=== PATIENT | female | born 1945 | race Caucasian/White ===

== ENCOUNTER 2024-09-23 09:56 | Outpatient (AMB) | payer MEDICARE, SELFPAY ==
--- NOTE | 2024-09-23 09:58 | MHC.PC.OV ---
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, needs referrals for eye treatment Intake Note: New patient to establish care and patient also need referrals for eye treatment Tax Map Technician Required: No Allergies No Known Allergies Allergy (Verified 09/23/24 10:27) Medication List - Last Reconciled 09/23/24 by Carrie Jordan, [facility]- amitriptyline 10 mg PO amoxicillin 2,000 mg PO aspirin (Adult Low Dose Aspirin) 81 mg PO DAILY atorvastatin 10 mg PO DAILY buspirone 20 mg PO BID famotidine 40 mg PO DAILY fluoxetine 20 mg PO fluticasone propionate 50 mcg/actuation 1 spray intranasal DAILY furosemide 40 mg PO DAILY omeprazole 40 mg PO DAILY potassium chloride ER mEq PO DAILY topiramate 50 mg PO DAILY trazodone 100 mg PO Tobacco use date assessed: 09/23/24 Fall risk assessment: No Falls in past year Last assessed Fall Risk: 09/23/24 Dental Screening Dental Screen Date: 09/23/24 Did you have a dental visit in the last 12 months?: Yes Did you have a dental problem in the last 6 months where you did not have access to dental care?: No Was dental information given to patient?: Patient has dentist HPI HPI Comments History of Present Illness Details 78 y/o F with GERD, CHF with seconday hyperaldosteronism, ELANA, macular degeneration, rheumatic fever, MDD, history of suicide attempt w/ tranquilizer drug overdose 2012,, DM 2, Iron def anemia, FALSE PASS, mitral valve disease SurgHx: s/p TAVR 2022 FHx: 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 Colon: Mammo: ordered today DEXA : ordered today PAP Vaccines: Shingles, pneumococcal, RSV, Flu UTD Tdap 2015 AAA screen EKG: [place] of Care: Optho cards bhn counselor and med prescriber Saw Setter Visual Acuity: glasses Hearing Screening: hearing aides ACP: Dietary/Nutrition/Exercise Edu provided: Y Results: EKG 10/15/23 NSR with PAC Echo 08/24/22 LV mild dilation, EF 50%, severe L atrium dilation, bioprosthetic valve in aortic position, trace perivalvular leak, severe mitral annular calcification, MV severely thickened and calcified, severe MVR During the course of the visit the patient was educated and counseled about appropriate screening and preventative services. Patient instructions were provided to the patient in written or electronic format. I have reviewed and verified the above information. History of Present Illness - The patient is a 78-year-old female presenting to [facility] care Previous PCP [place], [facility] records avail to review after the visit macular degeneration, managed by injections, needs updated referral - CHF, s/p TAVR, Mitral valve disorder: Active w/ cards Dr Chavez , needs updated referral - Hearing impairment due to old hearing aids. Difficulty in understanding accents compounding the issue. Needs Audio referral - unsteady gait potentially linked to sinus issues or medication side effects. Temporary relief experienced for 2 weeks, with return of sx. Saw ENT in the past and did Vestibular therapy, no relief. Has not done PT. - Episodes of unexplained low blood sugar with tremors. Past weight reduction attributed to significant lifestyle changes. reports dm2, checks glucose at home can be 70's at time. on no DM meds. - Psychiatric concerns involve self-reported depression and anxiety, refuting prior bipolar diagnosis. Hx of suicide attempt, Self tapering meds to see if this helps her sensation of walking like a drunken can pusher . Reports that her prescriber is aware. I advised strongly against this. 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 - Movement is assisted by a walking stick for exercise. - Actively engages in walking approximately four miles weekly. - Significantly reduced weight from 350 pounds to 132 pounds. - Experiences seasonal affective disorder, leading to overeating in winter. Review of Systems - General: Denies recent fever. - Eyes: Reports ongoing management for macular degeneration, both eyes affected. - Cardiovascular: Reports heart murmur and previous transcatheter aortic valve replacement. - Ears: Reports longstanding hearing impairment, worsened with age and inadequate hearing aids. - Neurologic: Reports unsteady gait, occasional tremors due to low blood sugar. - Psychiatric: Reports previous diagnosis of bipolar disorder, currently self-identified as dealing with depression and anxiety without bipolar characteristics. Exam Awake alert NAD Wearing glasses TM intact and clear bilat, hearing aides in place RRR, 3/6 murmur LS CTAB No edema BLE + PP Animated, mood expansive Discussion Notes In today's visit, I discussed multiple referrals for the patient's health maintenance needs including an technology sales specialist for her macular degeneration and audiology referral. The management of her cardiac concerns will continue with Dr. Guallpa. Future appointments for mammogram and bone density assessments were discussed, as well as physical therapy options for her gait issues, attributed to potential inner ear or medication-related reasons. Education on the importance of regular blood sugar monitoring due to episodes of hypoglycemia and discussion of mental health concerns centered on her self-reported depression and anxiety, dismissing a diagnosis of bipolar disorder. The patient was advised to continue her active lifestyle to help mitigate seasonal affective disorder. Assessment and Plan 1. Age-related Macular Degeneration: Continuing with injection treatments 2. Heart Murmur and Valve Replacement: Sustained follow-up with study specialist Dr. Guallpa. Attention to future intervention as discussed. 3. Hearing Loss: Addressing with an audiology referral for updated hearing evaluation and aid consideration. 4. Unsteady Gait: Suggested physical therapy to improve balance and address potential sinus and medication contributions. 5. Diabetes Mellitus: Blood glucose monitoring with laboratory evaluations scheduled for further diabetes screening. 6. Bipolar Disorder (self-reported clinical depression and anxiety): Psychiatric treatment continued with advisement against self-alteration of medication regimen. Patient Instructions - Ensure attendance to referred industrial gas fitter helper and computing architect appointments. - Monitor blood sugar levels continuously and report abnormal findings. - Engage regularly in physical activities like walking and attempt structured balance exercises. - Complete scheduled mammogram and bone density scan. - Follow up in two weeks for laboratory test review and ongoing treatment plans. Consent Patient was informed and verbally consented to the use of an ambient scribe for clinic note documentation during this visit. Total time spent caring for the patient today was 61 minutes. This includes time spent before the visit reviewing the chart, time spent during the visit, and time spent after the visit on documentation, reviewing laboratory results, diagnostic imaging, medications, performing a medically necessary evaluation, counseling on diagnoses, care coordination, ordering appropriate tests, ordering appropriate medications, review of tests performed by other providers, reporting test results with the patient, communication with other healthcare providers. [facility] Medical History (Updated 09/23/24 @ 16:04 by [facility] Anxiety and depression Arthritis Diabetes GERD (gastroesophageal reflux disease) Heart disease Heart valve problem History of mammogram History of transcatheter aortic valve implantation ([facility]I) IBS (irritable bowel syndrome) Imbalance Sinusitis Surgical History (Updated 09/23/24 @ 16:02 by [facility]) H/O gastric bypass History of colonoscopy Hx of cholecystectomy Family History (Updated 09/23/24 @ 10:28 by Ar Anne MA) Mother Asthma HTN (hypertension) Mental health disorder Sister Asthma HTN (hypertension) Mental health disorder Father HTN (hypertension) Social History (Updated 09/23/24 @ 10:12 by Ar Anne MA) Household Members: None Both parents involved: No Caregiver staying overnight: No Housing: House Are you a primary career services director to a significant other at home: No Do you presently have visiting nurse or other home services: No 75 years or older and lives alone: No Alcohol intake: never Patient Tobacco Use Status: Never used Tobacco e-Cigarette/Vaping Use: Never Used Second Hand Smoke Exposure: Yes Current occupational status: retired Cognitive needs: No Hearing needs: Yes (hearing aid) Vision needs: Yes (wear glasses) Questionnaire PHQ-9 Over the last 2 weeks, how often have you been bothered by any of the following problems? 1. Little interest or pleasure in doing things: several days 2. Feeling down, depressed, or hopeless: several days 3. Trouble falling or staying asleep, or sleeping too much: not at all 4. Feeling tired or having little energy: not at all 5. Poor appetite or overeating: nearly every day 6. Feeling bad about yourself - or that you are a failure or have let yourself or your family down: several days 7. Trouble concentrating on things, such as reading the newspaper or watching television: several days 8. Moving or speaking so slowly that other people could have noticed. Or the opposite - being so fidgety or restless that you have been moving around a lot more than usual: not at all 9. Thoughts that you would be better off or of hurting yourself in some way: not at all Total score: 7 Depression Screening Interpretation: Positive Depression Screening Follow-up: Existing condition and In treatment Depression Screening Done: Yes 26601 - PHQ-9 Billing: Yes Source: Developed by Drs. Janes Nation, Regis Darnell and colleagues, with an educational darrell from [employer]. Thrive Questionnaire Date Thrive assessed: 09/23/24 I am a: Patient What is your living situation today?: I have a steady place to live Within the past 12 months, did the food you bought not last and you didn't have the money to get more?: Never true Within the past 12 months, did you worry whether your food would run out before you got money to buy more?: Never true Do you have trouble paying for medicines?: No Do you have trouble getting transportation to medical appointments?: No Do you have trouble paying your heating and electricity bill?: No Do you have trouble taking care of your child, family member or friend?: No Do you have trouble with day-to-day activities such as bathing, preparing meals, shopping, managing finances, etc.?: No Are you currently unemployed and looking for a job?: No Are you interested in more education?: Yes Please select the resources that you would like help with: Housing/Chcf and Transportation Currently or been in a relationship where the following occur: No concerns reported THRIVE Score: 0 AUDIT C Alcohol Use Questionnaire (AUDIT-C) 1. How often do you have a drink containing alcohol?: Never 3. How often do you have six or more drinks on one occasion?: Never Total Score: 0 Score Reviewed/Action Taken: Yes ELANA-7 AMB Questionnaire ELANA-7 Date ELANA - 7 assessed: 09/23/24 Feeling nervous, anxious, or on edge: 1 = Several days Not being able to stop or control worryin = Several days Worrying too much about different things: 1 = Several days Trouble relaxin = Not at all Being so restless that it is hard to sit still: 0 = Not at all Becoming easily annoyed or irritable: 0 = Not at all Feeling afraid as if something awful might happen: 0 = Not at all Total ELANA-7 score (0-4 normal; 5-9 mild; 10-14 moderate; 15-21 severe): 3 Source: Developed by Debi Medeiros Kurt Kroenke and colleagues, with an educational darrell from [employer]. ELANA-7 Assessment Billing ELANA-7 Assessment Tool: ELANA-7 Assessment 47085 Physical exam (Primary Care) Vital Signs: Last Vital Signs Temp 97.1 F 09/23/24 10:12 Pulse 72 09/23/24 10:12 Resp 12 09/23/24 10:12 BP 122/72 09/23/24 10:12 Pulse Ox 99 09/23/24 10:12 Oxygen Delivery Method Room Air 09/23/24 10:12 BMI result Body Mass Index 25.8 Tobacco/Smoking Status: Tobacco use Status Tobacco use date assessed 09/23/24 09/23/24 10:14 Patient Tobacco Use Status Never used Tobacco 09/23/24 10:14 e-Cigarette/Vaping Use Never Used 09/23/24 10:14 PHQ-9: PHQ-9 Score PHQ-9: Total score 7 09/23/24 11:03 Depression Screening Interpretation: Positive Depression Screening Follow-up: Existing condition and In treatment Thrive Assessment: Date of Thrive Assessment Date Thrive assessed 09/23/24 09/23/24 10:03 Currently or been in a relationship where the following occur: No concerns reported Coding Level of Care Code New Pt Level 5 (15845) Complex EM visit Add On G2211 Diagnoses Encounter to establish care Z76.89 Macular degeneration of both eyes, unspecified type H35.30 Eye laterality: bilateral Macular degeneration type: unspecified type Status post transcatheter aortic valve replacement Z95.2 Hard of hearing H91.90 Unsteady gait R26.81 Risk for falls Z91.81 Chronic combined systolic and diastolic congestive heart failure I50.42 Heart failure type: combined systolic and diastolic Heart failure chronicity: chronic ELANA (generalized anxiety disorder) F41.1 Moderate episode of recurrent major depressive disorder F33.1 Major depression recurrence: recurrent Active/Remission status: currently active Major depression episode severity: moderate 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 History of suicide attempt Z91.51 History of rheumatic fever Z86.79 DM2 (diabetes mellitus, type 2) E11.9 Diabetes mellitus terminal worker insulin use: without terminal worker use Mitral valve disease I05.9 Additional Codes ELANA-7 Assessment Billing - ELANA-7 Assessment Tool: ELANA-7 Assessment 53237 ([id number]) PHQ-9 - 94382 - PHQ-9 Billing: Yes ([id number]) Assessment & Plan Assessment & Plan (1) Encounter to establish care: Code(s): Z76.89 - Persons encountering health services in other specified circumstances Category: Medical (2) Macular degeneration: Code(s): H35.30 - Unspecified macular degeneration Qualifiers: Eye laterality: bilateral Macular degeneration type: unspecified type Qualified Code(s): H35.30 - Unspecified macular degeneration (3) Status post transcatheter aortic valve replacement: Code(s): Z95.2 - Presence of prosthetic heart valve Plan: 2022 (4) Hard of hearing: Code(s): H91.90 - Unspecified hearing loss, unspecified ear (5) Unsteady gait: Code(s): R26.81 - Unsteadiness on feet Category: Medical (6) Risk for falls: Code(s): Z91.81 - History of falling Category: Medical (7) CHF (congestive heart failure): Comment: ef 50% echo 2022 with secondary hyperaldosteronism on lasix Code(s): I50.9 - Heart failure, unspecified Category: Medical Qualifiers: Heart failure type: combined systolic and diastolic Heart failure chronicity: chronic Qualified Code(s): I50.42 - Chronic combined systolic (congestive) and diastolic (congestive) heart failure (8) ELANA (generalized anxiety disorder): Code(s): F41.1 - Generalized anxiety disorder Category: Medical (9) MDD (major depressive disorder): Code(s): F32.9 - Major depressive disorder, single episode, unspecified Category: Medical Qualifiers: Major depression recurrence: recurrent Active/Remission status: currently active Major depression episode severity: moderate Qualified Code(s): F33.1 - Major depressive disorder, recurrent, moderate (10) Secondary hyperaldosteronism: Comment: d/t CHF on lasix Code(s): E26.1 - Secondary hyperaldosteronism Category: Medical (11) History of suicide attempt: Onset Date: ~08/2012 Comment: on tranquilizers Code(s): Z91.51 - Personal history of suicidal behavior Category: Medical (12) History of rheumatic fever: Code(s): Z86.79 - Personal history of other diseases of the circulatory system Category: Medical (13) DM2 (diabetes mellitus, type 2): Code(s): E11.9 - Type 2 diabetes mellitus without complications Category: Medical Qualifiers: Diabetes mellitus shelter insulin use: without terminal worker use (14) Mitral valve disease: Code(s): I05.9 - Rheumatic mitral valve disease, unspecified Category: Medical Plan . Orders: Orders MM tomosynthesis screening BI Today Z12.31 - Encounter for screening mammogram for malignant neoplasm of breast Complete Blood Count no Diff Today Z00.00 - Encounter for general adult medical examination without abnormal findings Lipid Panel Today Z00.00 - Encounter for general adult medical examination without abnormal findings Vitamin B12 and Folate Today Z00.00 - Encounter for general adult medical examination without abnormal findings Vitamin D 25-OH Total Today Z00.00 - Encounter for general adult medical examination without abnormal findings PT Evaluation and Treatment Today R26.81 - Unsteadiness on feet, Z91.81 - History of falling XR DEXA axial skeleton Today Z13.820 - Encounter for screening for osteoporosis, Z78.0 - Asymptomatic menopausal state Comprehensive Met. Panel Today Z00.00 - Encounter for general adult medical examination without abnormal findings Microalbumin, Random (w Creat) Today Z00.00 - Encounter for general adult medical examination without abnormal findings TSH reflex Free T4 Today Z00.00 - Encounter for general adult medical examination without abnormal findings Hemoglobin A1c Today Z00.00 - Encounter for general adult medical examination without abnormal findings Referrals Cardiology Referral Z95.2 - Presence of prosthetic heart valve Audiology Referral H91.90 - Unspecified hearing loss, unspecified ear Ophthalmology Referral H35.30 - Unspecified macular degeneration Patient Instructions: Walk-In Care (Urgent Care): We Make it Easy Walk-in for urgent medical issues such as: ? Seasonal Allergies ? Insect Bites ? Cough ? Diarrhea ? Acute Asthma Attacks ? Back, Knee or Joint Pain ? Ear Infection ? Fever without a Rash ? Headaches ? Nausea ? [place] [facility], Rash or Skin Irritation ? Sore Throat ? Sports Physicals ? Vomiting Most insurances are accepted. Patients do not need to be part of the [facility] to seek care at the walk-in clinic. Locations [facility] [place] [address] [address] ? [phone] [facility] Walk-In Care in [place] provides services to ages 18 and over. Open Saturday-Saturday: 8 a.m. to 5 p.m. and Saturday: 9 a.m. to 3 p.m.* *Hours may vary due to staffing availability. To confirm Walk-In Care hours in [place], please call [phone]. [address] [place] [address] ? [phone] [facility] Walk-In Care in [place] provides services to ages 12 and over. Open Saturday-Saturday: 8 a.m. to 5 p.m. Hours may vary due to staffing availability. To confirm Walk-In Care hours in [place], please call [phone]. LABORATORY SERVICES: [facility] [place] Primary Location [address] [place] [address] Saturday through Saturday 6:00 AM ? 5:00 PM Saturday 7:00 AM ? 11:00 AM* [phone] The [facility] is centrally located near the front entrance of the [facility] for easy outpatient access. Convenient parking is provided for outpatients. *Hours may vary due to staffing availability. To confirm Laboratory hours for any location, please call [phone]. Offsite Location For your convenience, we offer offsite laboratory draw stations at the following locations: [address] [place] [address] ? [address], [address] Saturday through Saturday 7:30 AM ? 1:00 PM* [phone] *Hours may vary due to staffing availability. To confirm Laboratory hours for any location, please call [phone]. [place] ? [address] Saturday through Saturday 6:00 AM ? 3:30 PM* Saturday 6:30 AM ? 3 PM* [phone] *Hours may vary due to staffing availability. To confirm Laboratory hours for any location, please call [phone] [place] [address] Saturday through Saturday 7:30 AM ? 4:00 PM* [phone] *Hours may vary due to staffing availability. To confirm Laboratory hours for any location, please call [phone] [place] [address] Saturday through 9:00 AM ? 4:00 PM* *Hours may vary due to staffing availability. To confirm Laboratory hours for any location, please call [phone]. Appointments are not necessary. Walk-ins are welcome. Like all the departments throughout the [facility], our Lab undergoes frequent reviews to ensure the quality and accuracy of test results, and our staff takes special pride in its status as a nationally accredited facility. Patient Portal: ONE PATIENT. ONE RECORD. BETTER CARE. [facility] has a fully integrated, cutting-edge mobile electronic health information system that has revolutionized the way we care for our patients and manage our organization. This system improves communication and coordination enabling us to provide safe, higher-quality care, and an overall positive experience for staff and patients. Our first priority, as always, is to deliver the highest quality care possible. The system is running in the background supporting that priority. This portal is for all [facility] and [facility] services and practices. If you are experiencing any technical difficulties with enrolling or logging into the Patient Portal please complete the [facility] [place] Portal Technical Support Form. [facility] now offers a new secure on-line interactive tool for patients to review their health information ? ?Patient Portal. This interactive web portal will enable patients and their families to take an active role in their care by providing easy, secure access to their health information via the internet. The Patient Portal provides patients with instant access to their health information, including laboratory results, medications, allergies, demographic information, visit history, and more. In addition to managing their own care, parents and health care proxies with authorized consent will appreciate the ability to access the records of those individuals for whom they provide care. Please note: if you wish to gain access (Proxy) to another patient?s portal, you will be required to come to the Medical Records Department in person at [facility]. Both the patient giving proxy access and the proxy will need to provide photo identification and complete the appropriate authorization. The Patient Portal also allows track their appointments online. The [facility] Patient Portal also saves patients time by allowing them to submit updates to their demographic and contact information prior to their visits. Portal email notifications will also alert patients to any new activity on their portal, such as test results and new appointments. In order to initially enroll in the [facility] Patient Portal, you will need to enter some required information including the following: your [facility] Medical Record number your personal home email address name date of Please note: In order to enroll in the [facility] Patient Portal, we need to have your email address on file in your electronic medical record. ?The email address needs to be specific for one person (yourself) in order for your Portal enrollment to be successful. ?You can update your email address in person with our Registration staff when you are registering for a hospital visit. ?Otherwise, you will need to come to the Health Information Management (Medical Records) Department at [facility]. ?We are open from Saturday ? Saturday from 7:30 a.m. ? 4:30 p.m. ?You will be required to present a photo id. Once you have successfully enrolled in the Patient Portal, you will receive a one-time user id and password for the Portal, sent to your email address. ?This will allow you to log into the Patient Portal within 99 hrs and reset your own logon id and password, and define personal security questions. ?Once your permanent login and password have been set, you can log into the [facility] [place] Portal at any time via the blue button above or from the Portal Logon button on any page of the [facility] website. [facility] and [facility] encourage all of our patients to enroll in Patient Portal as it presents a valuable opportunity for patients and their families to actively participate in their care and stay healthy Welcome to [facility]. ?We look forward to working with you.
[2024-09-23 10:12] VITALS: BP 122/72; PULSE 72; RESP 12; TEMP 36.2; O2SAT 99; BMI 25.8
--- OUTSIDE RECORDS SUMMARY | 2024-09-23 11:13 | XMS_ITS | Encounter Summary ---
Author Organization [employer] Address [address] [facility] [address] [place] [address] Care Team Providers Care Tin Cutter Name Role Phone Unavailable Primary Care Provider Unavailabl e Encounter Details Date Type Department Care Team (Latest Contact Info) Description 09/25/2018 Abstract [facility] CONVERSIONS Dental, Provider, DDS Social History Tobacco Use Types Packs/Day Years Used Date Smoking Tobacco: Never Assessed Comments Unknown Sex and Gender Information Value Date Recorded Sex Assigned at Choose not to disclose 2:10 PM EST Legal Sex Female 5:35 PM EDT Gender Identity Choose not to disclose 2:10 PM EST Sexual Orientation Choose not to disclose 2022 2:10 PM EST documented as of this encounter Plan of Treatment Not on file documented as of this encounter Visit Diagnoses Not on filedocumented in this encounter
--- OUTSIDE RECORDS SUMMARY | 2024-09-23 11:13 | XMS_ITS | Clinical Summary ---
Author Organization [employer] Address [address] [facility] [address] [place] [address] Care Team Providers Care Sole Stitcher Hand Name Role Phone Unavailable Primary Care Provider Unavailabl e Allergies Active Allergy Reactions Criticality Noted Date Comments Pollen Extract 10/05/2008 Medications amoxicillin (Amoxil) 500 MG tablet PLEASE SEE ATTACHED FOR DETAILED DIRECTIONS 3 Active atorvastatin (Lipitor) 10 MG tablet Take 1 tablet by mouth in the morning. 3 Active aspirin 81 MG EC tablet Take 1 tablet by mouth in the morning. 3 Active buPROPion SR (Wellbutrin SR) 100 MG 12 hr tablet Take 100 mg by mouth in the morning. 3 Active cetirizine (ZyrTEC) 10 MG tablet Take 1 tablet by mouth in the morning. Active clopidogrel (Plavix) 75 MG tablet Take 75 mg by mouth in the morning. 3 Active famotidine (Pepcid) 40 MG tablet Take 40 mg by mouth in the morning. 3 Active FLUoxetine (PROzac) 20 MG capsule Take 60 mg by mouth in the morning. 3 Active furosemide (Lasix) 40 MG tablet Take 40 mg by mouth in the morning. 3 Active potassium chloride CR (Klor-Con) 10 MEQ ER tablet Take 10 mEq by mouth in the morning. 3 Active topiramate 50 MG tablet Take 1 tablet by mouth in the morning. 1 Active traZODone (Desyrel) 100 MG tablet TAKE 3 TABLETS BY MOUTH EVERY DAY AT BEDTIME 3 Active Social History Tobacco Use Types Packs/Day Years Used Date Smoking Tobacco: Never Passive Smoke Exposure: Never Smokeless Tobacco: Never Tobacco Cessation:Counseling Given: Not Answered Alcohol Use Standard Drinks/Week Comments Never 0 (1 standard drink = 0.6 oz pur e alcohol) Comments Unknown Sex and Gender Information Value Date Recorded Sex Assigned at Choose not to disclose 2:10 PM EST Legal Sex Female 5:35 PM EDT Gender Identity Choose not to disclose 2:10 PM EST Sexual Orientation Choose not to disclose 2022 2:10 PM EST Plan of Treatment Health Maintenance Due Date Last Done Comments Depression Screening 1946 Lipid Panel 1946 SDOH Screening 1946 Alcohol/Substance Use Screening 1958 Hepatitis C Screening 1964 RSV Patients and Patients Aged 60 years or older (1 - 1-dose 75+ series) 2021 COVID-19 Vaccine (2023- season) 2024 04/23/2023, 04/19/2023, 04/17/2022, Additional history exists Influenza Vaccine (#1) 2024 3, 04/19/2023, 04/17/2022, Additional history exists Dental X-Ray: Bitewings 05/25/2024 05/24/20 23, 12/21/2021, 12/07/2020, Additional history exists Dental Oral Exam 06/21/2024 12/20/2023, 04/2023, 12/21/2021, Additional history exists Dental Prophylaxis 06/21/2024 12/20/2023, 1 07/24/2022, 12/21/2021, Additional history exists Tobacco Screening 12/19/2024 12/20/2023 Dental X-Ray: Full Mouth 05/25/2026 023, 08/08/2016, 10/11/2008 DTaP/Tdap/Td Vaccines (3 - Td or Tdap) 02/07/2030 02/08/2020, 05/25/2016 Zoster Vaccines Completed 02/15/2023, 11/13, 09/08/2012 Pneumococcal Vaccine: 50+ Years Completed 07/19/2023, 03/27/2017, 10/22/2014 HIB Vaccines Aged Out No longer eligi ble based on patient's age to complete this topic HPV Vaccines Aged Out No longer eligi ble based on patient's age to complete this topic Hepatitis A Vaccines Aged Out No long er eligible based on patient's age to complete this topic Hepatitis B Vaccines Aged Out No long er eligible based on patient's age to complete this topic IPV Vaccines Aged Out No longer eligi ble based on patient's age to complete this topic Meningococcal Vaccine Aged Out No [place] cir[place] eligible based on patient's age to complete this topic RSV under 20 months Aged Out No longe r eligible based on patient's age to complete this topic Rotavirus Vaccines Aged Out No longer eligible based on patient's age to complete this topic Procedures Procedure Name Priority Date/Time Associated Diagnosis Comments Full PROPHYLAXIS - ADULT Routine 024 12:00 PM EDT PERIODIC ORAL EVALUATION - ESTABLISHED PATIENT Routine 12/20/2023 12:00 PM EDT INTRAORAL - COMPLETE SERIES OF RADIOGRAPHIC IMAGES Routine 05/24/2023 9:30 AM EST from Last 3 Months or Most Recently Relevant to Health Maintenance Insurance DENTAL - HSN FULL (MEDICAID)
--- OUTSIDE RECORDS SUMMARY | 2024-09-23 11:13 | XMS_ITS | Encounter Summary ---
Author Organization [employer] Address [address] [place] [address] Care Team Providers Care Impregnation Operator Name Role Phone Justin Epstein MD Primary Care Provider [phone] Reason for Visit * Reason Onset Date Comments Referral 08/17/2024 Fax requesting i nsurance referral - ophthalmology Encounter Details Date Type Department Care Team (Late st Contact Info) Description 08/17/2024 Telephone Internal Medicine - [place] [address] [facility] [address] [place] [id number] Justin pEstein MD [address] [facility] [address] [place], [place] [id number] Referral (Fax requesting insurance referral - ophthalmology) Social History Tobacco Use Types Packs/Day Years Used Date Smoking Tobacco: Never Smokeless Tobacco: Never Alcohol Use Standard Drinks/Week Comments No 0 (1 standard drink = 0.6 oz pur e alcohol) Comments Unknown Sex and Gender Information Value Date Recorded Sex Assigned at Female 06/04/2024 3:01 PM EST Legal Sex Female 10:01 AM EST Gender Identity Female 06/04/2024 3:01 PM EST Sexual Orientation Not on file documented as of this encounter Progress Notes * Marry Mcrae - 08/17/2024 4:02 PM EST Fax rec'd requesting an ins referral Caller: Fax Office: [facility] Specialty: ophthalmology Insurance: [employer] ID: [id number] Provider: Jessika Ng DOS: 07/30/24 Visits: 6 Dx code: H35.3231 x [phone] Pls create an order with the above information so that I may process it through the pts insurance. Thank you IMPORTANT Pls copy and paste the above info into the order. Otherwise, it will not be processed as an ins referral documented in this encounter Plan of Treatment Not on file documented as of this encounter Visit Diagnoses Not on filedocumented in this encounter Care Teams Impregnation Operator Relationship Specialty Start Date End Date Justin Epstein MD [address] [place] [address] PCP - General 03/13/24 documented as of this encounter
--- OUTSIDE RECORDS SUMMARY | 2024-09-23 11:13 | XMS_ITS | Clinical Summary ---
Author Organization [address] [facility] Address [address] [place] [address] Phone Care Team Providers Care Investor Relations Coordinator Name Role Phone Justin Epstein MD Primary Care Provider [phone] Allergies Active Allergy Reactions Criticality Noted Date Comments Other 05/27/2024 Seasonal allergies Pollen Extracts 10/05/2008 Medications acetaminophen (TYLENOL) 325 mg tablet Take 2 tablets (650 mg total) by mouth every 6 (six) hours if needed. Active amoxicillin (AMOXIL) 500 mg tablet Take 4 tablets 1 hour prior to dental procedure 01/17/20 24 Active busPIRone (BUSPAR) 10 mg tablet Take 2 tablets (20 mg total) by mouth 1 (one) time each day. Active FLUoxetine (PROzac) 20 mg capsule Take 4 capsules (80 mg total) by mouth 1 (one) time each day. Active furosemide (LASIX) 40 mg tablet Take 1 tablet (40 mg total) by mouth 1 (one) time each day. 10/22/19 24 Active potassium chloride (KLOR-CON) 10 mEq CR tablet Take 1 tablet (10 mEq total) by mouth 1 (one) time each day. 01/22/20 24 Active topiramate (TOPAMAX) 50 mg tablet Take 1 tablet (50 mg total) by mouth 1 (one) time each day. 03/01/20 21 Active traZODone (DESYREL) 100 mg tablet Take 3 tablets (300 mg total) by mouth at bedtime. Active MULTIVITAMIN ORAL Take by mouth. Active famotidine (PEPCID) 40 mg tablet TAKE 1 TABLET BY MOUTH EVERY DAY 90 tablet 3 06/05/20 24 Active atorvastatin (LIPITOR) 10 mg tabletIndicatio ns:Hyperlipidem ia, unspecified TAKE 1 TABLET BY MOUTH EVERY DAY 90 tablet 1 06/05/20 24 Active celecoxib (CeleBREX) 200 mg capsule TAKE 1 CAPSULE (200 MG TOTAL) BY MOUTH 1 (ONE) TIME EACH DAY IF NEEDED FOR MODERATE PAIN. 30 capsule 2 08/26/19 25 Active celecoxib (CeleBREX) 200 mg capsule Take 1 capsule (200 mg total) by mouth 1 (one) time each day if needed for moderate pain. 30 each 2 06/04/20 24 025 Discontinued Active Problems Problem Noted Date Diagnosed Date Bipolar 1 disorder, depressed, mild 05/27/2024 S/P TAVR (transcatheter aortic valve replacement ) 08/28/2022 Overview (05/26/2024): [place] [facility] [place] with KM - Indications: Leukocytosis 05/11/2022 Metabolic acidosis, normal anion gap (NAG) 05/11 Pulmonary edema 05/11/2022 Respiratory failure with hypoxia 05/11/2022 Subclinical hypothyroidism 05/11/2022 Nonrheumatic mitral valve regurgitation 05/07/20 Rheumatic aortic regurgitation 04/19/2022 Aortic valve stenosis, severe 12/30/2019 Overview (05/26/2024): Last Assessment & Plan: The patient has symptomatic mixed valvular heart disease with evidence of severe aortic stenosis and moderate to severe mitral regurgitation. The predominant pathology of the mitral valve does not appear to be rheumatic and is also not related to stenosis, rather, there is evidence of moderate to severe mitral insufficiency. Due to the presence of MAC, it is unlikely that there is a feasible surgical intervention for treatment of both the mitral and aortic valves; for this reason I concur with Dr. Chavez that we should evaluate for TAVR for treatment of the aortic valve. If she remains symptomatic with significant mitral regurgitation following a TAVR procedure, then we can reevaluate whether there are surgical approaches or alternatively MitraClip for treatment of the MR. I counseled that in general mitral regurgitation will improve following relief of aortic stenosis with TAVR although this is not a guarantee. We had a discussion of the natural history of aortic stenosis and the management options which include continued medical therapy, transcatheter aortic valve replacement, surgical aortic valve replacement or palliative care. We reviewed the risk and benefits of these approaches and decided to proceed with an evaluation for TAVR. Periprocedural risks with estimated likelihood include stroke at 2%, permanent pacemaker at 8 to 10%, major bleeding at 3%, vascular complication at 1 to 2%, and at 1 to 2%. The patient accepts these risks and would like to proceed. The evaluation process will include a evaluation by cardiothoracic surgery and a TAVR CTA. The studies will be arranged in coordination with our office and the TAVR coordinators at the [facility] structural heart disease program. After all the studies have been completed the patient's care will be reviewed in a multidisciplinary meeting in the next steps will be determined. Sleep disorder 07/13/2018 Overview (05/26/2024): 06/2018 Home Sleep Study did not reveal sleep apnea. Iron deficiency 06/17/2016 Morbid obesity 10/21/2014 Suicide attempt by other tranquilizer drug overd ose 01/27/2013 Overview (05/26/2024): Overdosed on clonazepam 01/14/13; hospitalized at [facility]. Left atrial enlargement 10/13/2012 Rheumatic mitral regurgitation 10/13/2012 Cataract 01/23/2012 Type 2 diabetes mellitus with cataract 2 Overview (05/26/2024): Last Assessment & Plan: Pt educated on importance of low carb, low fat diet & exercise in lowering A1C & LDL. Educational literature sent from the [employer] regarding diet and diabetes management. Msg to MD for increased LDL, Lipitor ordered. 04/10/12 A1C 6.1 LDL 44. Case closed. Depressive disorder 10/06/2008 Rheumatic fever 10/06/2008 Encounters Date Type Department Care Team Description 08/17/2024 Telephone Internal Medicine - [place] [address] [facility] [address] [place] [address] Justin Epstein MD Referral (Fax requesting insurance referral - ophthalmology) from Last 3 Months Immunizations Name Administration Dates Next Due Influenza trivalent, 0.5mL ( Fluad) 65yo and older 04/17/2020,07/31/2019,03/27/2017,05/25,04/25/2015,05/21/2014,03/18/2013 ,04/10/2012,04/12/2011,04/10/2010,11/0 10/2008 Influenza, Unspecified 04/23/2023,04/19/2021 Moderna SARS-CoV-2 COVID-19, mRNA, LNP-S, preservative free 04/11/2022 Pfizer SARS-CoV-2 COVID-19, mRNA, LNP-S, preservative free 04/23/2023,12/07/2021,07/16/2020 Pneumococcal conjugate 13 va lent (Prevnar 13, PCV13) 2mo and older 03/27/2017 Pneumococcal polysaccharide 23 valent (Pneumovax 23) 2yo and older 10/22/2014 Tdap Tetanus diptheria acell ular pertussis (Boostrix; Adacel) 7yo and older 05/25/2016 Zoster Live 12/07/2021,09/08/2012 Surgical History Surgery Date Site/Laterality Comments GASTRIC BYPASS 1998 PROCEDURE: RI GASTRIC RSTCV W/BYP W/SM INT RCNSTJ LIMIT ABSRPJ HERNIA REPAIR PROCEDURE: HISTORICAL HERNIA REPAIR/UMB CYST REMOVAL PROCEDURE: RI EXCISION PILONIDAL CYST/SINUS SIMPLE CHOLECYSTECTOMY 03/14/10 PROCEDURE: HISTORICAL CHOLECYSTECTOMY COLONOSCOPY 06/25/16 PROCEDURE: RI COLONOSCOPY FLX DX W/COLLJ SPEC WHEN PFRMD; COMMENT: normal UPPER GASTROINTESTINAL ENDOSCOPY 06/25/16 PROCEDURE: UPPER GI ENDOSCOPY/EXAM; COMMENT: normal post op gastric bypass appearance CHOLECYSTECTOMY PROCEDURE: RI LAPAROSCOPY SURG CHOLECYSTECTOMY COLONOSCOPY PROCEDURE: HISTORICAL COLONOSCOPY Medical History Medical History Date Comments Depression DX:Depression; C OMMENT: ` Rheumatic fever 10/06/2008 DX:Rheumatic fev er Morbid obesity (CMS/HCC) 10/21/2014 DX:Morb id obesity (HCC) Iron deficiency 06/17/2016 DX:Iron deficien cy Type 2 diabetes mellitus wit h cataract (CMS/HCC) 01/23/2012 DX:Type 2 diabetes mellitus with cataract (HCC) Hyperglycemia 05/11/2022 DX:Hyperglycemia Family History Medical History Relation Name Comments No Known Problems Daughter Kidney cancer Father No Known Problems Maternal Grandfather No Known Problems Maternal Grandmother No Known Problems Mother No Known Problems Other Kidney cancer Paternal Grandfather deceas ed No Known Problems Paternal Grandmother No Known Problems Sister No Known Problems Son Breast cancer Neg Hx Colon cancer Neg Hx Ovarian cancer Neg Hx Relation Name Status Comments Daughter Father (Age 65) renal ca Maternal Grandfather Maternal Grandmother heart p roblem Mother (Age 70's) lung pro blem Other Paternal Grandfather renal c a Paternal Grandmother Sister CA, aortic sten osis, mytral valve Son Alive dm Social History Tobacco Use Types Packs/Day Years [...] PM EST Sexual Orientation Not on file Obstetrics History Last Filed Vital Signs Vital Sign Reading Time Taken Comments Blood Pressure 132/70 06/04/2024 2:19 PM EST Pulse 74 06/04/2024 2:19 PM EST Temperature - - Respiratory Rate - - Oxygen Saturation 99% 06/04/2024 2:19 PM EST Inhaled Oxygen Concentration - - Weight 57.2 kg (126 lb) 06/04/2024 2:19 PM EST Height 152.4 cm (5') 05/07/2024 10:41 AM EDT Body Mass Index 24.61 05/07/2024 10:41 AM EDT Plan of Treatment Health Maintenance Due Date Last Done Comments Diabetes: Annual Foot Exam 1955 Diabetes: Annual Retina Eye Exam 1955 Depression Screening 06/23/2022 Falls Risk Assessment 06/23/2022 Medicare Annual Wellness Visit 06/23/2022 Osteoporosis Screening (Bone Density Screening) 06/23/2022 Social Influencers of Health Screening 06/23/2022 Diabetes: Annual Urine Albumin-Creatinine Ratio (uACR) 11/20/2022 11/20/2021 Zoster Vaccines (3 of 3) 04/12/2023 023, 12/07/2021, 09/08/2012 COVID-19 Vaccine (9 - 2024-25 season) 2024 04/23/2023, 04/19/2023, 04/17/2022, Additional history exists Influenza Vaccine (#1) 2024 , 04/19/2023, 04/17/2022, Additional history exists Diabetes: Blood Sugar Control Test (HGBA1C) 04/14/2024 10/14/2023 Diabetes: Annual GFR (Glomerular Filtration Rate) 05/04/2025 05/04/2024, 05/04/2024, 05/04/2024 DTaP,Tdap,and Td Vaccines (2 - Td or Tdap) 05/25/2026 05/25/2016 Cholesterol Screening (Lipid Panel) 05/04/2029 05/04/2024, 05/04/2024 Hepatitis C Screening Completed 02/15/2010 Pneumococcal Vaccine: 50+ Years Completed 07/19/2023, 03/27/2017, 10/22/2014 RSV Immunization Patients 60+ Years Old Completed 07/19/2023 HIB Vaccines Aged Out No longer eligi [...] on patient's age to complete this topic MMR Vaccines Aged Out No longer eligi ble based on patient's age to complete this topic Meningococcal ACWY Vaccine Aged Out N o longer eligible based on patient's age to complete this topic Meningococcal B Vacine Aged Out No lo nger eligible based on patient's age to complete this topic RSV Immunization Patients Under 20 months Aged Out No longer eligible based on patient's age to complete this topic Varicella Vaccines Aged Out No longer eligible based on patient's age to complete this topic Procedures Procedure Name Priority Date/Time Associated Diagnosis Comments HM ANNUAL BMP BLOOD TEST Routine 05/04/2024 LIPID PANEL Routine 05/04/2024 HEMOGLOBIN A1C Routine 10/14/2023 URINE ALBUMIN CREATININE RATIO Routine 11/20/2021 HEPATITIS C SCREENING Routine 02/15/2010 from Last 3 Months or Most Recently Relevant to Health Maintenance Results * Annual BMP Blood Test (05/04/2024) Pathologist [facility] Annual BMP Blood Test abstracted Result [facility] Provider HEALTH MAINTENANCE Final Result * Lipid panel (05/04/2024) [facility] [address] LDL/HDL Ratio 2 0 - 4 Triglycerides 54 0 - 150 mg/dL Cholesterol 161 0 - 200 mg/dL HDL 98 >=40 mg/dL LDL Cholesterol 53 0 - 100 mg/dL Blood Venous blood specimen / Unknown Result [facility] Provider LAB BLOOD ORDERABLES Neha l Result * Hemoglobin A1c (10/14/2023) [facility] [address] Hemoglobin A1C 5.2 <=6.5 % Blood Venous blood specimen / Unknown Result [facility] Provider LAB BLOOD ORDERABLES Neha l Result * Urine Albumin Creatinine Ratio (11/20/2021) [facility] Urine Albumin Creatinine Ratio abstracted Result [facility] Provider HEALTH MAINTENANCE Final Result * Hepatitis C Screening (02/15/2010) [facility] Hepatitis C Screening abstracted [facility] Provider HEALTH MAINTENANCE Final Result from Last 3 Months or Most Recently Relevant to Health Maintenance Insurance [employer] Care Teams Investor Relations Coordinator Relationship Specialty Start Date End Date Justin Epstein MD [address] [address] PCP - General 03/13/24
--- OUTSIDE RECORDS SUMMARY | 2024-09-23 11:13 | XMS_ITS | Encounter Summary ---
Author Organization [employer] Address [address] [facility] [address] [place] [address] Care Team Providers Care Clinical Account Liaison Name Role Phone Unavailable Primary Care Provider Unavailabl e Encounter Details Date Type Department Care Team (Latest Contact Info) Description 12/07/2020 Abstract [facility] CONVERSIONS Dental, Provider, DDS Social [...]
--- OUTSIDE RECORDS SUMMARY | 2024-09-23 11:13 | XMS_ITS | Encounter Summary ---
Author Organization [employer] Address [address] [facility] [address] [place] [address] Care Team Providers Care Food Service Director Name Role Phone Unavailable Primary Care Provider Unavailabl e Encounter Details Date Type Department Care Team (Latest Contact Info) Description 06/15/2021 Abstract [facility] CONVERSION[facility] Dental, Provider, DDS Social [...]
--- OUTSIDE RECORDS SUMMARY | 2024-09-23 11:13 | XMS_ITS | Encounter Summary ---
Author Organization [employer] Address [address] [facility] [address] [place] [address] Care Team Providers Care Clin Nurse Name Role Phone Unavailable Primary Care Provider Unavailabl e Encounter Details Date Type Department Care Team (Latest Contact Info) Description 12/21/2021 Abstract [facility] CONVERSION[facility] Dental, Provider, DDS Social [...]
--- OUTSIDE RECORDS SUMMARY | 2024-09-23 11:13 | XMS_ITS | Data Portability ---
Author Organization [place] [facility], Allergy Address [address] [place] [phone] Care Team Providers Care Sales Ambassador Name Role Phone LELE MALHOTRA Primary Care Provider Assessment No assessment recorded. Plan of Treatment Reminders Order Date Submit Date Provider Last Modified By Organization Details Last Modified Time Details Appointments None recorded. Lab None recorded. Referral vestibula r therapy referral 2023 024 [email or web address] 2 [facility], [address] [place] [address], [id number], 14:56:28 Procedures None recorded. Surgeries None recorded. Imaging None recorded. Medication Orders None recorded. Patient TargetsNo targets recorded. Patient InstructionsNo instructions recorded. Reason for Referral Vestibular Therapy Referral for Dizziness and giddiness Referring Physician: Mitesh Garcia, Otolaryngology, Encounter Date: 03/12/2024 Results Created Date Observation Date Name Description Value Unit Range Abnormal Flag Note LastModifiedBy Organization Detail LastModifiedTime 03/13/20 24 audio gram No observ ation record ed. [email or web address] Not Available 2023 10:08:08 Result Notes None recorded. Problems Name Problem SNOMED Code Status Onset Date Resolution Date Notes Provider Name and Address Organization Details Recorded Time Sensorineural hearing loss of bilateral ears 529477197 Active 2023 RONNIE MIRANDA [address], [address] [facility] [place] [facility] 4 13:27:50 Allergic rhinitis 89241258 Active 2023 MITESH Otero MD [address] [address], [place], [address], [place] [facility] 13:52:18 Dizziness and giddiness 221402437 Active 2023 MITESH Otero MD [address] [address], [place], [address], [facility] - [facility] 13:54:43 Problem Notes None recorded. Procedures Surgical History Date Name Laterality Status Provider Name and Address Organization Details Recorded Time 03/12/2024 Comp Audio with Tymps (96455 & 56241) completed RONNIE MIRANDA [address] [address], [place], [address], [facility] 03/12/2024 13:27:54 Imaging Results Imaging Date Name Status LastModified by Organiz ation Details LastModified Time 03/13/2024 audiogram completed kreiro Information no t available 03/13/2024 10:08:08 Procedure Notes None recorded. Medical Equipment None Reported. Medications Name Sig Start Date Stop Date Status Note LastModified by Organization Details LastModified Time amoxicillin 500 mg capsule TAKE 4 CAPSULES BY MOUTH 1 HOUR PRIOR TO DENTAL PROCEDURE active Not Available Not Available No t Available furosemide 40 mg tablet TAKE 1 TABLET BY MOUTH EVERY DAY active Not Available Not Available No t Available atorvastatin 10 mg tablet TAKE 1 TABLET BY MOUTH EVERY DAY active Not Available Not Available No t Available famotidine 40 mg tablet TAKE 1 TABLET BY MOUTH EVERY DAY active Not Available Not Available No t Available potassium chloride ER 10 mEq tablet,exten ded release TAKE 1 TABLET BY MOUTH EVERY DAY active Not Available Not Available No t Available clopidogrel 75 mg tablet TAKE 1 TABLET BY MOUTH EVERY DAY active Not Available Not Available No t Available bupropion HCl SR 100 mg tablet,12 hr sustained-re lease TAKE 1 TABLET BY MOUTH EVERY DAY IN THE MORNING active Not Available Not Available No t Available amoxicillin 500 mg tablet PLEASE SEE ATTACHED FOR DETAILED DIRECTIONS active Not Available Not Available N ot Available propranolol 10 mg tablet TAKE 1/2 TO 1 TABLET BY MOUTH TWICE A DAY NEEDED active Not Available Not Available No t Available prednisolone acetate 1 % eye drops,suspen yuriy INSTILL 1 DROP INTO RIGHT EYE 4 TIMES A DAY active Not Available Not Available Not Available trazodone 100 mg tablet TAKE 3 TABLETS BY MOUTH EVERY DAY AT BEDTIME active Not Available Not Available No t Available buspirone 10 mg tablet TAKE 2 TABLETS BY MOUTH TWICE A DAY active Not Available Not Available No t Available fluoxetine 20 mg capsule TAKE 3 CAPSULES BY MOUTH ONCE DAILY active Not Available Not Available No t Available topiramate 50 mg tablet TAKE 1 TABLET BY MOUTH EVERY DAY active Not Available Not Available No t Available Vitals None Recorded Social History None recorded. Functional Status None recorded. Mental Status None recorded. Family History Nothing Reported. Medical History No medical history recorded. Gynecological HistoryNo gynecological history recorded. Obstetrics History GPAL:G 0 P 0 0 0 0 Past Encounters Encounter ID Performer Location Encounter Start Date Encounter Closed Date Diagnosis/Indication Diagnosis SNOMED-CT Code Diagnosis ICD10 Code Diagnosis Note [id number] MITESH GARCIA MD [facility] [address] [address] 03/12/2024 12:59:43 03/13/2024 07:37:21 Sensorineural hearing loss of bilateral ears 230950267 H90.3 Right Ear:Mild to severe SNHL with excellent speech discrimina tion.Type A tympanogra m.Left Ear:Mild to severe SNHL with excellent speech discrimina tion.Type A tympanogra m. continue hearing aid use. Allergic rhinitis 376303 04 J30.9 Discussed allergy testing but she did SCIT in the past and was not interested . We will observe for now. Dizziness and giddiness 386000412 R42 She does not have true vertigo. She reports light headedness . Her dizziness is not otologic in nature. I recommende d she discuss neurology referral with her PCP. I will refer to vestibular therapy. Health Concerns Section Related Observation LastModified by Organization Detai ls LastModified Time None Recorded Concern Status LastModified by Organization Details LastModified Time None Recorded Advance Directives Directive None Recorded Payers Encounter Date Sequence Insurance Name Policy Number Policy Cardenas Covered Member ID Cardenas Member ID Guarantor Name 03/12/2024 1 [facility] PLAN (MEDICARE REPLACEMENT HMO) Tana Estrada [id number] Tana Estrada Notes Date Note Type Note Provider Name and Address Organization Details Recorded Time 03/12/2024 text/html She reports she has been off balance for years. She says she walks like she is drunk. she has not done vestibular therapy. No hx of a stroke. She did have a heart valve replaced. She said her head feels spacey. Denies room spinning vertigo. She has occasional headaches. She has tinnitus AU. Audio showed SNHL AU. Also reports seasonal alleragies. Did SCIT in the past. Has tried antihistmaines and flonase without benefit. MITESH GARCIA MD [address] [place] [address], [place], [address], [facility] - [facility] 03/12/2024 13:56:02 OBGyn Episode No OBEpisode recorded.
== END 2024-09-23 10:53 | disposition home or self-care (01) ==
LOC: HO.HMCFM 09:57
PROVIDERS: PCP Nurse Practitioner Family; Visit Provider Nurse Practitioner Family
DX: I50.42 Chronic combined systolic (congestive) and diastolic (congestive) heart failure (principal); F33.1 Major depressive disorder, recurrent, moderate; E26.1 Secondary hyperaldosteronism; E11.9 Type 2 diabetes mellitus without complications; Z68.25 Body mass index [BMI] 25.0-25.9, adult; Z91.51 Personal history of suicidal behavior; Z76.89 Persons encountering health services in other specified circumstances; H35.30 Unspecified macular degeneration; Z95.2 Presence of prosthetic heart valve; R26.81 Unsteadiness on feet; Z91.81 History of falling; F41.1 Generalized anxiety disorder

== ENCOUNTER → 2024-09-23 09:56 | Outpatient (BNVA) | payer MEDICARE, SELFPAY | PROVIDERS: PCP Nurse Practitioner Family; Visit Provider Nurse Practitioner Family ==

== ENCOUNTER 2024-09-23 10:40 | Outpatient (REF) | payer MEDICARE, SELFPAY ==
--- OUTSIDE RECORDS SUMMARY | 2024-09-23 12:22 | XMS_ITS | Encounter Summary ---
Author Organization [employer] Address [address] [facility] [address] [place] [address] Care Team Providers Care Clay House Worker Name Role Phone Unavailable Primary Care Provider [...]
--- OUTSIDE RECORDS SUMMARY | 2024-09-23 12:22 | XMS_ITS | Encounter Summary ---
Author Organization [employer] Address [address] [facility] [address] [place] [address] Care Team Providers Care Forest Firefighter Name Role Phone Unavailable Primary Care Provider [...]
--- OUTSIDE RECORDS SUMMARY | 2024-09-23 12:22 | XMS_ITS | Encounter Summary ---
Author Organization [employer] Address [address] [place] [address] Care Team Providers Care Control Panel Operator Name Role Phone Justin Epstein MD Primary Care Provider [phone] Reason for Visit * Reason Onset Date Comments Referral 08/17/2024 Fax requesting i nsurance referral - ophthalmology Encounter Details Date Type Department Care Team (Late st Contact Info) Description 08/17/2024 Telephone Internal Medicine - [place] [address] [facility] [address] [place] [id number] Justin Epstein MD [address] [facility] [address] [place], [place] [phone] Referral (Fax requesting insurance referral - ophthalmology) [...] requesting an ins referral Caller: Fax Office: [facility] Specialty: ophthalmology Insurance: [employer] ID: [id number] Provider: Jessika Ng DOS: 07/30/24 Visits: 6 [...] on filedocumented in this encounter Care Teams Control Panel Operator Relationship Specialty Start Date End Date Justin Epstein MD [address] [place] [address] PCP - General 03/13/24 documented as of this encounter
--- OUTSIDE RECORDS SUMMARY | 2024-09-23 12:22 | XMS_ITS | Encounter Summary ---
Author Organization [employer] Address [address] [facility] [address] [place] [address] Care Team Providers Care C T Tech Name Role Phone Unavailable Primary Care Provider [...]
--- OUTSIDE RECORDS SUMMARY | 2024-09-23 12:22 | XMS_ITS | Encounter Summary ---
Author Organization [employer] Address [address] [facility] 7[address] [place] [address] Care Team Providers Care Solar Lab Technician Name Role Phone Unavailable Primary Care Provider [...]
--- OUTSIDE RECORDS SUMMARY | 2024-09-23 12:22 | XMS_ITS | Clinical Summary ---
Author Organization [employer] Address [address] [facility] [address] [place] [address] Care Team Providers Care Clinical Reviewer Name Role Phone Unavailable Primary Care Provider [...]
--- OUTSIDE RECORDS SUMMARY | 2024-09-23 12:22 | XMS_ITS | Clinical Summary ---
Author Organization [address] [facility] Address [address] [place] [address] Phone Care Team Providers Care Net Sorter Name Role Phone Justin Epstein MD Primary Care Provider [phone] Allergies Active Allergy Reactions Criticality Noted Date [...] replacement ) 08/28/2022 Overview (05/26/2024): Done at [facility] on 08/23/22 with KM - Indications: Leukocytosis [...] office and the TAVR coordinators at the [facility] structural heart disease program. After all the [...] Team Description 08/17/2024 Telephone Internal Medicine - [place] [address] [facility] [address] [place] [address] Justin Epstein MD Referral (Fax [...] Date Site/Laterality Comments GASTRIC BYPASS 1998 PROCEDURE: [place] GASTRIC RSTCV W/BYP W/SM INT RCNSTJ LIMIT ABSRPJ HERNIA REPAIR PROCEDURE: HISTORICAL HERNIA REPAIR/UMB CYST REMOVAL PROCEDURE: [place] EXCISION PILONIDAL CYST/SINUS SIMPLE CHOLECYSTECTOMY 03/14/10 PROCEDURE: HISTORICAL CHOLECYSTECTOMY COLONOSCOPY 06/25/16 PROCEDURE: [place] COLONOSCOPY FLX DX W/COLLJ SPEC WHEN PFRMD; COMMENT: normal UPPER GASTROINTESTINAL ENDOSCOPY 06/25/16 PROCEDURE: UPPER GI ENDOSCOPY/EXAM; COMMENT: normal post op gastric bypass appearance CHOLECYSTECTOMY PROCEDURE: [place] LAPAROSCOPY SURG CHOLECYSTECTOMY COLONOSCOPY PROCEDURE: HISTORICAL COLONOSCOPY [...] * Annual BMP Blood Test (05/04/2024) Pathologist [facility] Annual BMP Blood Test abstracted Result [facility] Provider HEALTH MAINTENANCE Final Result * Lipid panel (05/04/2024) [facility] LDL/HDL Ratio 2 0 - 4 Triglycerides 54 0 - 150 mg/dL Cholesterol 161 0 - 200 mg/dL HDL 98 >=40 mg/dL LDL Cholesterol 53 0 - 100 mg/dL Blood Venous blood specimen / Unknown Result [facility] Provider LAB BLOOD ORDERABLES Neha l Result * Hemoglobin A1c (10/14/2023) [facility] Hemoglobin A1C 5.2 <=6.5 % Blood Venous blood specimen / Unknown Result [facility] Provider LAB BLOOD ORDERABLES Neha l Result * Urine Albumin Creatinine Ratio (11/20/2021) [facility] Urine Albumin Creatinine Ratio abstracted Result [facility] Provider HEALTH MAINTENANCE Final Result * Hepatitis C Screening (02/15/2010) [facility] Hepatitis C Screening abstracted [facility] Provider HEALTH MAINTENANCE Final Result from Last 3 Months or Most Recently Relevant to Health Maintenance Insurance [employer] Care Teams Net Sorter Relationship Specialty Start Date End Date Justin Epstein MD [address] [address] PCP - General 03/13/24
[2024-09-23 14:37] LABS: Hematocrit 41.1 % (37.0-47.0); Hemoglobin 13.4 g/dl (12.0-16.0); Mean Corpuscular HGB Conc 32.6 g/dl (31.0-35.0); Mean Corpuscular Hemoglobin 30.1 pg (27.0-33.0); Mean Corpuscular Volume 92.4 fL (80.0-98.0); Mean Platelet Volume 11.4 fL (9.4-12.3); Platelet Count 212 X10*3/uL (160-400); Red Blood Count 4.45 X10*6/uL (4.20-5.50); Red Cell Distribution Width 13.3 % (11.0-16.0); White Blood Count 5.5 X10*3/uL (4.8-10.8)
[2024-09-23 14:53] LABS: Estimated Average Glucose 105 mg/dL; Hemoglobin A1c % 5.3 % (<6.0)
[2024-09-23 15:10] LABS: Creatinine Urine 22.17 mg/dL; Microalbumin Urine < 5.0 mg/L
[2024-09-23 15:36] LABS: Folate 15.4 ng/mL (> or = 4.0); Vitamin B12 322 pg/mL (200-900)
[2024-09-23 17:19] LABS: Alanine Aminotransferase 31 U/L (0-31); Albumin Level 3.9 g/dL (3.5-5.0); Alkaline Phosphatase 121 U/L (39-117); Anion Gap 12 (12-20); Aspartate Amino Transferase 30 U/L (5-31); Bilirubin Total 0.5 mg/dL (0.0-1.0); Blood Urea Nitrogen 19 mg/dL (9-16); Calcium 8.9 mg/dL (8.4-10.2); Carbon Dioxide 26 mmol/L (22-29); Chloride 109 mmol/L (96-108); Cholesterol 161 mg/dL (<200); Estimated Glomerular Filt Rate > 60; Glucose Random 93 mg/dL (60-115); HDL Cholesterol 82 mg/dL (>40); LDL Cholesterol Calculated 71 mg/dL (<100); Potassium 3.9 mmol/L (3.3-5.1); Sodium 143 mmol/L (135-145); TSH reflex Free T4 1.28 uIU/mL (0.32-4.0); Triglycerides 42 mg/dL (<150); Vitamin D 25-OH Total 20.2 ng/mL (>30)
== END 2024-09-23 10:41 | disposition home or self-care (01) ==
LOC: HO.WFDLDS 10:40
PROVIDERS: Visit Provider Nurse Practitioner Family
DX: E11.9 Type 2 diabetes mellitus without complications (principal); I11.0 Hypertensive heart disease with heart failure; I50.42 Chronic combined systolic (congestive) and diastolic (congestive) heart failure; H35.30 Unspecified macular degeneration; H91.90 Unspecified hearing loss, unspecified ear; I05.9 Rheumatic mitral valve disease, unspecified; R26.81 Unsteadiness on feet; F41.1 Generalized anxiety disorder; F33.1 Major depressive disorder, recurrent, moderate; E26.1 Secondary hyperaldosteronism; Z76.89 Persons encountering health services in other specified circumstances; Z95.2 Presence of prosthetic heart valve; Z91.51 Personal history of suicidal behavior; Z86.79 Personal history of other diseases of the circulatory system
CPT/HCPCS: 36415; 80053; 80061; 82043; 82306; 82570; 82607; 82746; 83036; 84443; 85027; 96127; 99202

== ENCOUNTER 2024-10-07 11:11 | Outpatient (AMB) | payer MEDICARE, SELFPAY ==
--- NOTE | 2024-10-07 11:19 | A.OFFVIS_ITS ---
Intake Vital Signs 10/07/24 11:44 Height 5 ft Weight 136 lb 2 oz BMI 26.6 BP 124/70 Blood Pressure Location Rt brachial Position Sitting Respiration 13 Pulse 74 Pulse Source Pulse Oximeter Temp 97.3 F Temp Source Oral Pulse Oximetry (%) 98 Oxygen Delivery Method Room Air Intake Visit Reasons: 2 weeks 30 min sAWV/lab review Intake Note: AWV with follow up on labs [employer] Required: No Allergies No Known Allergies Allergy (Verified 10/07/24 11:21) Medication List - Last Reconciled 10/07/24 by Carrie Jordan, [facility]- amitriptyline 10 mg PO amoxicillin 2,000 mg PO aspirin (Adult Low Dose Aspirin) 81 mg PO DAILY atorvastatin 10 mg PO DAILY buspirone 20 mg PO BID famotidine 40 mg PO DAILY fluoxetine 20 mg PO fluticasone propionate 50 mcg/actuation 1 spray intranasal DAILY furosemide 40 mg PO DAILY omeprazole 40 mg PO DAILY potassium chloride ER mEq PO DAILY topiramate 50 mg PO DAILY trazodone 100 mg PO Do you need a note to return to daycare/school/sports/work: No HPI HPI Comments History of Present Illness Details Here today for AWV. The Medicare Annual Wellness Visit (AWV) is a yearly appointment with a health professional to identify health risks and help reduce them and to create or update a personalized prevention plan. During a Medicare AWV, health professionals should also review any current opioid prescriptions, detect any cognitive impairment, and establish or update medical and family history. 78 y/o F with GERD, CHF with seconday hy peraldosteronism, ELANA, macular degeneration, rheumatic fever, MDD, history of suicide attempt w/ tranquilizer drug overdose 2012,benzo use disorder, DM 2, Iron def anemia, NIKOLAI, mitral valve disease, urinary incont, Vit D def, subarachnoid hemorrhage (bifrontal, biparietal,L occipital, R leah fissure and quadigeminal cistern 03/2024 s/p fall), subdural hematoma R tentorium, low density white matter changes, CAD (mild vasc calcification of aorta CT chest 03/2024), mid to distal esophageal wall thickening, R rib fractures 2023, lung nodules SurgHx: s/p TAVR 2022, s/p gastric bypass FHx: Y son, oren 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 Colon: [place] 2016 reports no polyps repeat in 10 years declined future screening Mammo: ordered today *09/2024 did not call to schedule dexa or mammo DEXA : ordered today * PAP aged out Vaccines: Shingles, pneumococcal, RSV, Flu UTD Tdap 2016 AAA screen: NA EKG: completed today [place] of Care: Optho cards n counselor and med prescriber Weaver Apprentice Visual Acuity: glasses, eye exam UTD see vision results Hearing Screening: hearing aides ACP: has HCP at home; no living will. Info provided today Dietary/Nutrition/Exercise Edu provided: Y During the course of the visit the patient was educated and counseled about appropriate screening and preventative services. Patient instructions were provided to the patient in written or electronic format. I have reviewed and verified the above information. The patient is a 78-year-old female presenting for an annual Medicare wellness visit and follow-up for lab results. - Concerns with cognitive impairment inc lude difficulties with auditory memory, noted by struggling with memory exercises. Traumatic subarachnoid hemorrhage (bifrontal, biparietal,L occipital, R leah fissure and quadigeminal cistern 03/2024 s/p fall), subdural hematoma R tentorium, low density white matter changes - The patient reports urinary incontinen ce issues, aggravated by her diuretic medication. - Persistent dizziness has been a concer n, with an incident during the visit today when laying and turning head to the R and looking up. - A recent lab identified Vitamin D defi ciency, not previously supplemented. - Regular treatment for macular degenera tion is ongoing. - She has a history of aortic valve repl acement and mitral valve issues. Active w Cards - The patient underwent gastric bypass s urgery, impacting current vitamin supplementation. Obsessed with wt. Periods of fasting and exercise to lose weight. Social History - Reports previous regular walking routi ne, reduced over winter due to weather and knee pain. - The patient describes eating oatmeal f or breakfast and monitoring weight. - Indicates some inactivity during winte r; otherwise, attempts regular walking as exercise. - Currently using a walking stick for ba twin due to dizziness. Review of Systems - Ears: Reports hearing issues, does not consistently use hearing aids. - Genitourinary: Reports urinary inconti nence. - Musculoskeletal: Reports falls and cur rently uses a walking stick. - Neurological: Reports dizziness and au ditory memory issues. - Weight: Reports weight gain since last visit. Physical Exam General: Well developed, well nourished, in no acute distress. Appears stated age. Head: Normocephalic, atraumatic. Eyes: Pupils are equal, round and reactive to light and accommodation. Conjunctivae are clear. + [place] hallpike Ears: TMs clear AU, EACS WNL. Nose: Patent, without discharge. Neck: Supple, no adenopathy or thyromegaly. Breast: Edu on SBE. Due for a mammogram. Lungs: Clear to auscultation bilaterally. No rales, rhonchi or wheeze noted. Good air flow in all beatty. Heart: Regular rate and rhythm. No click, rubs or gallops are noted. 3/6 murmur. Abdomen: Bowel sounds present in all quadrants. The abdomen is soft, nontender, with no masses or organomegaly noted. No hernias are noted. : Deferred. Reviewed recommendations for routine TOWER OBSERVER. Urology referral for bladder control issues. Pulses: Peripheral pulses are equal and palpable bilaterally. Extremities: No clubbing, cyanosis nor edema is noted. Neurologic: Gait and station normal. Cranial Nerves 2-12 intact. Motor strength grossly symmetrical and intact. No sensory loss. Balance poor.. Dizziness noted, vestibular therapy referral made. Skin: No rashes, ulcers, or lesions noted. Turgor is good. Skin color is good. Hair and nails are without abnormalities. Psych: Normal eye contact, affect and mood appropriate, and normal interactions. Patient is alert and appropriate to context. Cognitive screening performed with some difficulty noted. Results: EKG 10/15/23 NSR with PAC Echo 08/24/22 LV mild dilation, EF 50%, severe L atrium dilation, bioprosthetic valve in aortic position, trace perivalvular leak, severe mitral annular calcification, MV severely thickened and calcified, severe MVR labs 09/23/2024 normal electrolytes and renal function hemoglobin A1c 5.3%, normal CBC normal LFTs mild elevation in alk-phos 121, normal lipid profile B12, low vitamin-D 22, normal folate and TSH urine microalbumin Discussion Notes I discussed the current symptoms and the management of vitamin D deficiency, agreeing to supplementation. We talked about cognitive exercises and the patient's auditory memory issues, recommending annual cognitive screening. With urinary incontinence, I proposed potential urological consultation and medication options. Discussion on dizziness led to considering vestibular therapy, given observed dizziness during examination, and referring the patient for specialized therapy. Emphasized the importance of vitamin D supplementation and regular mammogram and bone density tests for ongoing health maintenance. We discussed safely using a walking stick for mobility, considering the history of falls and dizziness, and continuing current eye treatments. I reiterated the need for follow-up on heart conditions with the automobile mechanic supervisor. Assessment and Plan 1. Cognitive Impairment: Continuing with annual screenings for cognitive impairment and advising cognitive therapy as needed. 2. Urinary Incontinence: Referred to uro logist for potential stimulation therapy or medication to manage bladder control. 3. Dizziness: Referred for vestibular th erapy to address chronic dizziness experienced by the patient. 4. Vitamin D Deficiency: Begin daily vit hector D supplementation at 2000 IU to correct deficiency. 5. Macular Degeneration: Continue with ori kerr ophthalmologic treatment plan and regular evaluations. 6. Cardiac Pathology: Management include s regular cardiology follow-ups for monitoring valve performance. 7. Weight Management: Encourage physical activity, specifically walking, to optimize weight control. - Patient advised and called [facility] office regarding mammogram and bone density test; follow-up required. - Referral to urologist suggested for ur inary incontinence management. - Recommendation made for vitamin D supp lementation at 2000 IU daily. - Advised to resume walking routine as w gokulher allows for weight management. - Vestibular therapy referral planned fo r management of dizziness. - Eye treatment plan and regular assessm ents for macular degeneration noted. -RTO 6 mo routine fu, sooner PRN Consent Patient was informed and verbally consented to the use of an ambient scribe for clinic note documentation during this visit. An additional 50 minutes was spent addressing the problem(s) noted at todays visit. This includes time spent before the visit reviewing the chart, time spent during the visit, and time spent after the visit on documentation reviewing lab oratory results, diagnostic imaging, medications, performing a medically necessary evaluation, counseling on diagnoses, care coordination, ordering appropriate tests, ordering appropriate medications, review of tests performed by other providers, reporting test results with the patient, communication with other healthcare providers. [facility] Medical History (Updated 10/07/24 @ 17:53 [facility] Anxiety and depression Arthritis Diabetes GERD (gastroesophageal reflux disease) Heart disease Heart valve problem History of mammogram History of rib fracture (~2023) History of transcatheter aortic valve implantation ([facility]) IBS (irritable bowel syndrome) Imbalance Sinusitis Surgical History (Updated 10/07/24 @ 12:08 [facility] H/O gastric bypass History of colonoscopy (~2016) Hx of cholecystectomy Family History (Updated 09/23/24 @ 10:28 by Ar Anne MA) Mother Asthma HTN (hypertension) Mental health disorder Sister Asthma HTN (hypertension) Mental health disorder Father HTN (hypertension) Social History (Updated 09/23/24 @ 10:12 by Ar Anne MA) Household Members: None Housing: House Are you a primary residential care facility manager to a significant other at home: No Do you presently have visiting nurse or other home services: No Alcohol intake: never Patient Tobacco Use Status: Never used Tobacco e-Cigarette/Vaping Use: Never Used Second Hand Smoke Exposure: Yes Current occupational status: retired Cognitive needs: No Hearing needs: Yes (hearing aid) Vision needs: Yes (wear glasses) Questionnaire Medicare Wellness Checkup [age] What gender do you identify with?: female During the past 4 weeks, how much have you been bothered by emotional problems such as feeling anxious, depressed, irritable, sad or downhearted, and blue?: not at all During the past 4 weeks, has your physical & emotional health limited your social activities with family, friends, neighbors, or groups?: not at all During the past 4 weeks, how much bodily pain have you generally had?: no pain During the past 4 weeks, what was the hardest physical activity you could do for at least 2 minutes?: moderate Can you get to places out of walking distance without help? (For eg., can you travel alone on buses, taxis or drive your car?): Yes Can you go shopping for groceries or clothes without someone's help?: Yes Can you prepare your own meals?: Yes Can you do your housework without help?: Yes Because of any health problems, do you need the help of another person with your personal care needs such as eating, bathing, dressing or getting around the house?: No Can you handle your own money without help?: Yes During the past 4 weeks, how would you rate your health in general?: good During the past 4 weeks how have things been going for you?: pretty well Are you having difficulties driving your car?: no Do you always fasten your seat belt when you are in a car?: yes, usually During past 4 weeks, have you been bothered by the following: never: Falling or dizzy when standing up, Sexual problems?, Trouble eating well?, Teeth or denture problems?, Problems using the telephone? and Tiredness or fatigue? Have you fallen 2 or more times in the past year?: No Are you afraid of falling?: No Are you a smoker?: no During the past 4 weeks, how many drinks of wine, beer, or other alcoholic beverages did you have?: no alcohol at all Do you exercise for about 20 minutes 3 or more times a week?: no, I usually do not exercise this much Have you been given information to help with the following?: no: Hazards in your house that might hurt you? and no: Keeping track of your medications? How often do you have trouble taking medicines the way you have been told to take them?: I always take medicine as prescribed How confident are you that you can control & manage most of your health problems?: somewhat confident What is your race?: White Activity of Daily Living Bathing - sponge bath, tub bath or shower: receives no assistance (gets in/out by self, if usual bathing means Dressing - getting clothes from closets & drawers, including inner/outer garments & fasteners.: gets clothes & gets completely dressed without help Toileting - going to the 'toilet room' for urine/bowel elimination & cleaning self/arranging clothes: goes to toilet room, cleans self, arranges clothes wit hout help Transfer: moves in & out of bed and chair without help (may use support object) Continence: controls urination/bowel movements completely by self Feeding: feeds self without help Total Score: 0 Information obtained from: patient Using telephone: independent Traveling: independent Shopping: independent Preparing meals: independent Housework: independent Taking medicine: independent Managing money: independent PHQ-9 Over the last 2 weeks, how often have you been bothered by any of the following problems? 1. Little interest or pleasure in doing things: not at all 2. Feeling down, depressed, or hopeless: not at all 3. Trouble falling or staying asleep, or sleeping too much: not at all 4. Feeling tired or having little energy: not at all 5. Poor appetite or overeating: not at all 6. Feeling bad about yourself - or that you are a failure or have let yourself or your family down: not at all 7. Trouble concentrating on things, such as reading the newspaper or watching television: not at all 8. Moving or speaking so slowly that other people could have noticed. Or the opposite - being so fidgety or restless that you have been moving around a lot more than usual: not at all 9. Thoughts that you would be better off or of hurting yourself in some way: not at all Total score: 0 Depression Screening Interpretation: Negative Depression Screening Done: Yes 80344 - PHQ-9 Billing: Yes Source: Developed by Drs. Janes Nation, Debi Alcaraz, Regis Samuels and colleagues, with an educational darrell from [employer]. Physical Exam Vital Signs: Last Vital Signs Temp 97.3 F 10/07/24 11:44 Pulse 74 10/07/24 11:44 Resp 13 10/07/24 11:44 BP 124/70 10/07/24 11:44 Pulse Ox 98 10/07/24 11:44 Oxygen Delivery Method Room Air 10/07/24 11:44 BMI result Body Mass Index 26.6 Office Procedures EKG 66680-[id number], Complete Vision Screening Right Eye: 20/25 Left Eye: 20/20 Bilateral: 20/20 Color: Pass Corrected: Pass (wearing glasses) 05656 - Vision Screening Assessment & Plan Assessment & Plan (1) Encounter for subsequent annual wellness visit (AWV) in Medicare patient: Code(s): Z00.00 - Encounter for general adult medical examination without abnormal findings (2) ACP (advance care planning): Code(s): Z71.89 - Other specified counseling (3) Vitamin D deficiency: Code(s): E55.9 - Vitamin D deficiency, unspecified (4) Urinary incontinence: Comment: refer to Uro Code(s): R32 - Unspecified urinary incontinence Qualifiers: Urinary Incontinence type: mixed stress and urge incontinence Qualified Code(s): N39.46 - Mixed incontinence (5) Unsteady gait: Code(s): R26.81 - Unsteadiness on feet (6) Risk for falls: Code(s): Z91.81 - History of falling (7) BPPV (benign paroxysmal positional vertigo): Code(s): H81.10 - Benign paroxysmal vertigo, unspecified ear Qualifiers: Laterality: bilateral Qualified Code(s): H81.13 - Benign paroxysmal vertigo, bilateral (8) White matter disease: Comment: subarachnoid hemorrhage (bifrontal, biparietal,L occipital, R leah fissure and quadigeminal cistern 03/2024 s/p fall), subdural hematoma R tentorium, low density white matter changes, Code(s): R90.82 - White matter disease, unspecified (9) History of subarachnoid hemorrhage: Onset Date: ~03/2024 Comment: subarachnoid hemorrhage (bifrontal, biparietal,L occipital, R leah fissure and quadigeminal cistern 03/2024 s/p fall), subdural hematoma R tentorium, low density white matter changes, Code(s): Z86.79 - Personal history of other diseases of the circulatory system (10) CAD (coronary artery disease): Comment: CAD (mild vasc calcification of aorta CT chest 03/2024), Code(s): I25.10 - Atherosclerotic heart disease of [place] coronary artery without angina pectoris (11) Lung nodules: Comment: (mild vasc calcification of aorta CT chest 03/2024)lung nodules no need for f/u Code(s): R91.8 - Other nonspecific abnormal finding of lung field (12) GERD with esophagitis: Comment: CT chest 03/2024), mid to distal esophageal wall thickening Code(s): K21.00 - Gastro-esophageal reflux disease with esophagitis, without bleeding Qualifiers: Esophagitis bleeding: without hemorrhage Qualified Code(s): K21.00 - Gastro-esophageal reflux disease with esophagitis, without bleeding (13) 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 Orders: Referrals Urology Referral R32 - Unspecified urinary incontinence Medications: New cholecalciferol (vitamin D3) 50 mcg PO DAILY 90 caps 2RF Patient Instructions: - Begin taking one tablet of vitamin D 2000 IU daily. - Schedule and attend appointments for mammogram and bone density testing. - Follow up with a urologist regarding bladder control issues. - Communicate with the vestibular specialist once contacted to arrange therapy. - Continue attending regular eye doctor appointments for treatment. - Use the walking stick whenever walking for safety and stability. - Increase physical activity gradually as weather improves; aim for regular walks. Quality Reporting (2019) Adult ([facility] 138//) Smoking risk assessment performed?: Yes Patient Tobacco Use Status: Never used Tobacco Depression screening performed: Yes Screen Results: Yes Negative screen Systolic BP not done?: No Diastolic BP not done?: No BMI screening not done: No BMI High - Follow Up: Yes High-plan Sexual Activity Screening ([facility] 153) Sexually active?: No Immunizations ([facility] 147, 117) Annual Influenza Vaccine: Yes Measles Antibody Test: No Mumps Antibody Test: No Rubella Antibody Test: No Varicella Antibody Test: No Anti Hepatitis A IgG Antigen test: No Anti Hepatitis B Virus Surface Ab test: No Fall Risk Screening ([facility] 139) Last assessed Fall Risk: 10/07/24 Fall risk assessment: No Falls in past year Dementia Assessment ([facility] 149) Cognitive assessment recorded: Yes Assessment of cognition with standardized tool: Yes (05/11 6 CIt ) Depression/Bipolar (159/160/161/177) PHQ-9: Total score: 0 Ophthalmol:Cataracts Visual Acuity (133) Visual acuity exam performed: Yes (see results) Coding Level of Care Code Medicare Subsequent (G0439) Est Pt Level 5 (51326) Diagnoses Encounter for subsequent annual wellness visit (AWV) in Medicare patient Z00.00 ACP (advance care planning) Z71.89 Vitamin D deficiency E55.9 Mixed stress and urge urinary incontinence N39.46 Urinary Incontinence type: mixed stress and urge incontinence Unsteady gait R26.81 Risk for falls Z91.81 Benign paroxysmal positional vertigo due to bilateral vestibular disorder H81.13 Laterality: bilateral White matter disease R90.82 History of subarachnoid hemorrhage Z86.79 CAD (coronary artery disease) I25.10 Lung nodules R91.8 Gastroesophageal reflux disease with esophagitis without hemorrhage K21.00 Esophagitis bleeding: without hemorrhage 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
[2024-10-07 11:44] VITALS: BP 124/70; PULSE 74; RESP 13; TEMP 36.3; O2SAT 98; BMI 26.6
== END 2024-10-07 12:35 | disposition home or self-care (01) ==
LOC: HO.HMCFM 11:13
PROVIDERS: PCP Nurse Practitioner Family; Visit Provider Nurse Practitioner Family
DX: Z00.00 Encounter for general adult medical examination without abnormal findings (principal); N39.46 Mixed incontinence; R26.81 Unsteadiness on feet; Z71.89 Other specified counseling; E55.9 Vitamin D deficiency, unspecified; F13.90 Sedative, hypnotic, or anxiolytic use, unspecified, uncomplicated; Z91.81 History of falling; H81.13 Benign paroxysmal vertigo, bilateral; R90.82 White matter disease, unspecified; Z86.79 Personal history of other diseases of the circulatory system; I25.10 Atherosclerotic heart disease of native coronary artery without angina pectoris; R91.8 Other nonspecific abnormal finding of lung field

== ENCOUNTER → 2024-10-07 11:11 | Outpatient (BNVA) | payer MEDICARE, SELFPAY | PROVIDERS: PCP Nurse Practitioner Family; Visit Provider Nurse Practitioner Family | DX: Z00.00 Encounter for general adult medical examination without abnormal findings (principal); Z71.89 Other specified counseling; E55.9 Vitamin D deficiency, unspecified; N39.46 Mixed incontinence; R26.81 Unsteadiness on feet; Z91.81 History of falling; H81.13 Benign paroxysmal vertigo, bilateral; R90.82 White matter disease, unspecified; I25.10 Atherosclerotic heart disease of native coronary artery without angina pectoris; R91.8 Other nonspecific abnormal finding of lung field; K21.00 Gastro-esophageal reflux disease with esophagitis, without bleeding; F13.90 Sedative, hypnotic, or anxiolytic use, unspecified, uncomplicated; Z86.79 Personal history of other diseases of the circulatory system | CPT/HCPCS: 93005; 96127; 99212 ==

== ENCOUNTER 2024-10-21 08:47 | Outpatient (REF) | payer MEDICARE, SELFPAY ==
--- OUTSIDE RECORDS SUMMARY | 2024-10-21 09:09 | XMS_ITS | Encounter Summary ---
Author Organization [employer] Address [address] [place] [address] Care Team Providers Care Cyber Incident Analyst Name Role Phone Unavailable Primary Care Provider [...]
--- OUTSIDE RECORDS SUMMARY | 2024-10-21 09:09 | XMS_ITS | Encounter Summary ---
Author Organization [employer] Address [address] [place] [address] Care Team Providers Care Phlebotomy Instructor Name Role Phone Unavailable Primary Care Provider [...]
--- OUTSIDE RECORDS SUMMARY | 2024-10-21 09:09 | XMS_ITS | Data Portability ---
Author Organization [place] [facility], Allergy Address [address] [address] Care Team Providers Care Superintendent Refuse Disposal Name Role Phone LELE MALHOTRA Primary Care Provider Assessment No assessment recorded. Plan of Treatment Reminders Order Date Submit Date Provider Last Modified By Organization Details Last Modified Time Details Appointments None recorded. Lab None recorded. Referral vestibula r therapy referral 2023 024 2 [facility], [address] [place] [address], 1st Floor, [place], [address], 14:56:28 Procedures None recorded. Surgeries None recorded. [...] Time Sensorineural hearing loss of bilateral ears [id number] Active 2023 RONNIE MIRANDA 100 [facility] [address], [address], [facility] 4 13:27:50 Allergic rhinitis 21954788 Active 2023 MITESH Otero MD [address] [address], [place], [address], [place] [facility] 13:52:18 Dizziness and giddiness 604410663 Active 2023 MITESH Otero MD 100 [facility] 100, [place], [address], [facility] - [facility] 13:54:43 Problem Notes None recorded. Procedures Surgical History Date Name Laterality Status Provider Name and Address Organization Details Recorded Time 03/12/2024 Comp Audio with Tymps (99530 & 92636) completed RONNIE MIRANDA [address] [address], [place], [address], [facility] 03/12/2024 13:27:54 Imaging Results Imaging Date [...] SNOMED-CT Code Diagnosis ICD10 Code Diagnosis Note [id number] MITESH GARCIA MD [facility] of [address] [address] 03/12/2024 12:59:43 03/13/2024 07:37:21 Sensorineural hearing loss of bilateral ears [id number] H90.3 Right Ear:Mild to severe SNHL with excellent speech discrimina tion.Type A tympanogra m.Left Ear:Mild to severe SNHL with excellent speech discrimina tion.Type A tympanogra m. continue hearing aid use. Allergic rhinitis 075588 04 J30.9 Discussed allergy testing but she did SCIT in the past and was not interested . We will observe for now. Dizziness and giddiness [id number] R42 She does not have true vertigo. [...] Cardenas Member ID Guarantor Name 03/12/2024 1 [facility] [employer] (MEDICARE REPLACEMENT HMO) Tana Estrada [id number] Tana Estrada Notes Date Note Type Note [...] and flonase without benefit. MITESH GARCIA MD [address] [place] [address], [place], [address], [facility] - [facility] 03/12/2024 13:56:02 OBGyn Episode No OBEpisode recorded.
--- OUTSIDE RECORDS SUMMARY | 2024-10-21 09:09 | XMS_ITS | Encounter Summary ---
Author Organization [employer] Address 75 [facility] 7 [place] [address] Care Team Providers Care Asset Availability Leader Name Role Phone Unavailable Primary Care Provider [...]
--- OUTSIDE RECORDS SUMMARY | 2024-10-21 09:09 | XMS_ITS | Encounter Summary ---
Author Organization [employer] Address 75 [facility] 7t [place] [address] Care Team Providers Care Vp Rheumatology Name Role Phone Unavailable Primary Care Provider [...]
--- OUTSIDE RECORDS SUMMARY | 2024-10-21 09:09 | XMS_ITS | Clinical Summary ---
Author Organization [employer] Address 75 [facility] 7t [place] [address] Care Team Providers Care Shipping/Receiving Manager Name Role Phone Unavailable Primary Care Provider [...] MOUTH EVERY DAY AT BEDTIME 3 Active Encounters Date Type Department Care Team Description 09/25/2024 [facility] [address] [place] [address] Melissa Carrero from Last 3 Months Social History Tobacco Use Types Packs/Day Years [...] - 1-dose 75+ series) 2021 COVID-19 Vaccine ( season) 2024 04/23/2023, 04/19/2023, 04/17/2022, Additional history [...]
--- OUTSIDE RECORDS SUMMARY | 2024-10-21 09:09 | XMS_ITS | Encounter Summary ---
Author Organization [employer] Address 75 [facility] 7t [place] [address] Care Team Providers Care County Health Officer Name Role Phone Unavailable Primary Care Provider Unavailabl e Encounter Details Date Type Department Care Team (Late st Contact Info) Description 09/25/2024 [facility] [address] [place] [address] Melissa Carrero Social History Tobacco Use Types Packs/Day Years Used Date Smoking Tobacco: Never Passive Smoke Exposure: Never Smokeless Tobacco: Never Alcohol Use Standard Drinks/Week Comments Never 0 [...]
--- OUTSIDE RECORDS SUMMARY | 2024-10-21 09:09 | XMS_ITS | Clinical Summary ---
Author Organization 175 [facility] Address 175 [place] [address] Phone Care Team Providers Care Commercial Or Institutional Cleaner Name Role Phone Justin Epstein MD Primary Care Provider [phone] Allergies Active Allergy Reactions Criticality Noted Date [...] mouth 1 (one) time each day. Active potassium chloride (KLOR-CON) 10 mEq CR [...] PAIN. 30 capsule 2 08/26/19 25 Active furosemide (LASIX) 40 mg tablet TAKE 1 TABLET BY MOUTH EVERY DAY 90 tablet 2 09/29/19 25 Active furosemide (LASIX) 40 mg tablet Take 1 tablet (40 mg total) by mouth 1 (one) time each day. 10/22/19 24 025 Discontinued Active Problems Problem Noted Date Diagnosed Date Bipolar 1 disorder, depressed, mild 05/27/2024 S/P TAVR (transcatheter aortic valve replacement ) 08/28/2022 Overview (05/26/2024): Done at [facility] on 08/23/22 with KM - Indications: Leukocytosis [...] office and the TAVR coordinators at the [facility] structural heart disease program. After all [...] Encounters Date Type Department Care Team Description 09/24/2024 Telephone [facility] [address] [place] [address] Justin Epstein MD Referral (Received routine paper referral for established patient. Sent to Kirsty simpson) 08/17/2024 Telephone Internal Medicine - [place] [address] [facility] [address] [place] [address] Justin Epstein MD Referral (Fax requesting insurance referral - ophthalmology) from Last 3 Months Immunizations Name Administration Dates Next Due Influenza trivalent, 0.5mL ( Fluad) 65yo and older 04/17/2020,07/31/2019,03/27/2017,05/25,04/25/2015,05/21/2014,03/18/2013 ,04/10/2012,04/12/2011,04/10/2010,10/2008 Influenza, Unspecified 04/23/2023,04/19/2021 Moderna SARS-CoV-2 COVID-19, mRNA, [...] Date Site/Laterality Comments GASTRIC BYPASS 1998 PROCEDURE: [place] GASTRIC RSTCV W/BYP W/SM INT RCNSTJ LIMIT ABSRPJ HERNIA REPAIR PROCEDURE: HISTORICAL HERNIA REPAIR/UMB CYST REMOVAL PROCEDURE: [place] EXCISION PILONIDAL CYST/SINUS SIMPLE CHOLECYSTECTOMY 03/14/10 PROCEDURE: HISTORICAL CHOLECYSTECTOMY COLONOSCOPY 06/25/16 PROCEDURE: NJ COLONOSCOPY FLX DX W/COLLJ SPEC WHEN PFRMD; COMMENT: normal UPPER GASTROINTESTINAL ENDOSCOPY 06/25/16 PROCEDURE: UPPER GI ENDOSCOPY/EXAM; COMMENT: normal post op gastric bypass appearance CHOLECYSTECTOMY PROCEDURE: [place] LAPAROSCOPY SURG CHOLECYSTECTOMY COLONOSCOPY PROCEDURE: HISTORICAL COLONOSCOPY Medical History Medical History Date Comments Depression DX:Depression; C OMMENT: ` Rheumatic fever 10/06/2008 DX:Rheumatic fev er Morbid obesity (CMS/HCC) 10/21/2014 DX:Morb id obesity (HCC) Iron deficiency 06/17/2016 DX:Iron deficien cy Type 2 diabetes mellitus with cataract 2 DX:Type 2 diabetes mellitus with cataract (HCC) [...] 05/07/2024 10:41 AM EDT Plan of Treatment Upcoming Encounters Date Type Department Care Team (Late st Contact Info) Description 11/09/2024 11:20 AM EDT Office Visit [facility] Cardiology Located [facility] [address] [place] [address] Bob Chavez MD [address] [place] [address],[address] [address] Health Maintenance Due Date Last Done Comments Diabetes: Annual Foot Exam 1955 Diabetes: Annual Retina Eye Exam 1955 Depression Screening 06/23/2022 Falls Risk Assessment 06/23/2022 Medicare Annual Wellness Visit 06/23/2022 Osteoporosis Screening (Bone Density Screening) 06/23/2022 Social Influencers of Health Screening 06/23/2022 Diabetes: Annual Urine Albumin-Creatinine Ratio (uACR) 11/20/2022 11/20/2021 Zoster Vaccines (3 of 3) 04/12/2023 023, 12/07/2021, 09/08/2012 COVID-19 Vaccine ( season) 2024 04/23/2023, 04/19/2023, 04/17/2022, Additional history exists Diabetes: Blood Sugar Control Test (HGBA1C) 04/14/2024 10/14/2023 Influenza Vaccine (Season Ended) 2025 04/23/2023, 04/19/2023, 04/17/2022, Additional history exists Diabetes: Annual GFR (Glomerular Filtration Rate) 05/04/2025 05/04/2024, 05/04/2024, 05/04/2024 DTaP,Tdap,and Td Vaccines (2 - Td or Tdap) 05/25/2026 05/25/2016 Cholesterol Screening (Lipid Panel) 05/04/2029 05/04/2024, 05/04/2024 Hepatitis C Screening Completed 02/15/2010 Pneumococcal Vaccine: 50+ Years Completed 07/19/2023, 03/27/2017, 10/22/2014 RSV Immunization Adult Patients Completed 07/19/2023 HIB Vaccines Aged Out No [...] age to complete this topic Meningococcal B Vaccine Aged Out No l onger eligible based on patient's age to complete this topic RSV Immunization Patients Under 20 months Aged Out No longer eligible based on patient's age to complete this topic Varicella Vaccines Aged Out No longer eligible based on patient's age to complete this topic Procedures Procedure Name Priority Date/Time Associated Diagnosis Comments ANNUAL BMP BLOOD TEST Routine 05/04/2024 LIPID PANEL Routine 05/04/2024 HEMOGLOBIN A1C Routine 10/14/2023 URINE ALBUMIN CREATININE RATIO Routine 11/20/2021 HEPATITIS C SCREENING Routine 02/15/2010 from Last 3 Months or Most Recently Relevant to Health Maintenance Results * Annual BMP Blood Test (05/04/2024) Annual BMP Blood Test abstracted [facility] Provider HEALTH MAINTENANCE Final Result * Lipid panel (05/04/2024) Pathologist [facility] LDL/HDL Ratio 2 0 - 4 Triglycerides 54 0 - 150 mg/dL Cholesterol 161 0 - 200 mg/dL HDL 98 >=40 mg/dL LDL Cholesterol 53 0 - 100 mg/dL Blood Venous blood specimen / Unknown Result [facility] Provider LAB BLOOD ORDERABLES Neha l Result * Hemoglobin A1c (10/14/2023) Pathologist [facility] Hemoglobin A1C 5.2 <=6.5 % Blood Venous blood specimen / Unknown Result [facility] Provider LAB BLOOD ORDERABLES Neha l Result * Urine Albumin Creatinine Ratio (11/20/2021) Pathologist [facility] Urine Albumin Creatinine Ratio abstracted [facility] Provider HEALTH MAINTENANCE Final Result * Hepatitis C Screening (02/15/2010) Hepatitis C Screening abstracted us Historical Provider HEALTH MAINTENANCE Final Result from Last 3 Months or Most Recently Relevant to Health Maintenance Insurance [employer] Care Teams Commercial Or Institutional Cleaner Relationship Specialty Start Date End Date Justin Epstein MD 175 [facility] 200 [place] [address] PCP - General 03/13/24
--- NOTE | 2024-10-21 10:35 | MHC.AU.HA1 ---
Hearing Aid Evaluation Date of Visit: 10/21/24 Facility Sales And Admin Used: Historical Information: Description of Hearing: Mild to moderately severe sensorineural hearing loss bilaterally Current personal amplification information, if applicable: Oticon Delta My Summary: Tana feels she has outgrown her 15 year old Wale Pepe-- listening check suggests they are underfit for her current degree of loss, open dome not appropriate. Discussed attempting adjustments versus new technology, she is interested in updating her hearing aids. Selected Oticon Real 2 miniRITE T as she prefers to stay with disposable batteries. Reviewed pricing, nonrefundable consult fee, signed order confirmation sheet. Expressed interest in paying half at fitting and setting up payment plan for remaining balance. She called her medical spending card to verify balance for consult fee. Per Fatuma, $350 did not go through and patient stated she would call once she sorted things out but was unsure she wanted to move forward with order anyway. Will hold paperwork and order until she lets us know. Hearing Aid Prescription: Based on the individual?s shared listening needs, communication environments, dexterity, desire for connectivity, and personal preferences, the following prescription for amplification has been made: Right ear: Make, Model, Color: Oticon Real 2 miniRITE R, pink Battery Size: 312 Transonic Engineer/Slim Tube: 2 85g Type of Earmold/Dome/CShell/SlimTip: 6 mm dbl case Left ear: Left ear prescription to be same as Right Hearing Aid above: Make, Model, Color: Oticon Real 2 miniRITE R, pink Battery Size: 312 Transonic Engineer/Slim Tube: 2 85g Type of Earmold/Dome/CShell/SlimTip: 6mm dbl manpreet Plan of Care: Action Taken/Action Needed: Medical Clearance to be requested from PCP/ENT Comments: Patient will call to pay $[address] order. Primary Diagnosis: H90.3 Bilateral Sensorineural Hearing Loss Signature: Provider: Maggi Noriega, [facility]
== END 2024-10-21 08:48 | disposition home or self-care (01) ==
LOC: HO.SH 08:47
PROVIDERS: Visit Provider Nurse Practitioner Family
DX: Z01.118 Encounter for examination of ears and hearing with other abnormal findings (principal); H90.3 Sensorineural hearing loss, bilateral
CPT/HCPCS: 92557

== ENCOUNTER 2024-10-21 10:01 | Outpatient (REF) | payer SELFPAY ==
--- OUTSIDE RECORDS SUMMARY | 2024-10-21 11:11 | XMS_ITS | Encounter Summary ---
Author Organization [employer] Address 75 [facility] 7t [place] [address] Care Team Providers Care Storage Consultant Name Role Phone Unavailable Primary Care Provider Unavailabl e Encounter Details Date Type Department Care Team (Late st Contact Info) Description 09/25/2024 [facility] [address] [place] [address] Melissa Carrero Social History Tobacco Use Types [...]
--- OUTSIDE RECORDS SUMMARY | 2024-10-21 11:11 | XMS_ITS | Encounter Summary ---
Author Organization [employer] Address 75 [facility] 7t [place] [address] Care Team Providers Care Neurocritical Care Physician Name Role Phone Unavailable Primary Care Provider [...]
--- OUTSIDE RECORDS SUMMARY | 2024-10-21 11:11 | XMS_ITS | Clinical Summary ---
Author Organization 175 [facility] Address 175 [place] [address] Phone Care Team Providers Care Sparker And Patcher Name Role Phone Justin Epstein MD Primary Care Provider [phone] Allergies Active Allergy Reactions Criticality Noted Date [...] replacement ) 08/28/2022 Overview (05/26/2024): [place] [facility] [place] with KM - Indications: Leukocytosis [...] office and the TAVR coordinators at the [facility] structural heart disease program. After [...] Type Department Care Team Description 09/24/2024 Telephone [facility] [address] [facility] [address] [place] [address] Justin Epstein MD Referral (Received routine paper referral for established patient. Sent to Kirsty simpson) 08/17/2024 Telephone Internal Medicine - [place] [address] [facility] [address] [place] [address] Justin Epstein MD Referral (Fax [...] Date Site/Laterality Comments GASTRIC BYPASS 1998 PROCEDURE: ME GASTRIC RSTCV W/BYP W/SM INT RCNSTJ LIMIT ABSRPJ HERNIA REPAIR PROCEDURE: HISTORICAL HERNIA REPAIR/UMB CYST REMOVAL PROCEDURE: ME EXCISION PILONIDAL CYST/SINUS SIMPLE CHOLECYSTECTOMY 03/14/10 PROCEDURE: HISTORICAL CHOLECYSTECTOMY COLONOSCOPY 06/25/16 PROCEDURE: ME COLONOSCOPY FLX DX W/COLLJ SPEC WHEN PFRMD; COMMENT: normal UPPER GASTROINTESTINAL ENDOSCOPY 06/25/16 PROCEDURE: UPPER GI ENDOSCOPY/EXAM; COMMENT: normal post op gastric bypass appearance CHOLECYSTECTOMY PROCEDURE: ME LAPAROSCOPY SURG CHOLECYSTECTOMY COLONOSCOPY PROCEDURE: HISTORICAL COLONOSCOPY [...] Description 11/09/2024 11:20 AM EDT Office Visit [facility] Cardiology [facility] [address] [place] [address] Bob Chavez MD [address] [place] [address],[address] [address] Health Maintenance Due Date Last Done Comments [...] Test (05/04/2024) Annual BMP Blood Test abstracted [facility] Provider HEALTH MAINTENANCE Final Result * Lipid panel (05/04/2024) Pathologist [facility] LDL/HDL Ratio 2 0 - 4 Triglycerides 54 0 - 150 mg/dL Cholesterol 161 0 - 200 mg/dL HDL 98 >=40 mg/dL LDL Cholesterol 53 0 - 100 mg/dL Blood Venous blood specimen / Unknown Result [facility] Provider LAB BLOOD ORDERABLES Neha l Result * Hemoglobin A1c (10/14/2023) Pathologist [facility] Hemoglobin A1C 5.2 <=6.5 % Blood Venous blood specimen / Unknown Result [facility] Provider LAB BLOOD ORDERABLES Neha l Result * Urine Albumin Creatinine Ratio (11/20/2021) Pathologist [facility] Urine Albumin Creatinine Ratio abstracted [facility] Provider HEALTH MAINTENANCE Final Result * Hepatitis C Screening (02/15/2010) Hepatitis C Screening abstracted us Historical Provider HEALTH MAINTENANCE Final Result from Last 3 Months or Most Recently Relevant to Health Maintenance Insurance [employer] Care Teams Sparker And Patcher Relationship Specialty Start Date End Date Justin Epstein MD 175 [facility] 200 [place] [address] PCP - General 03/13/24
--- OUTSIDE RECORDS SUMMARY | 2024-10-21 11:11 | XMS_ITS | Clinical Summary ---
Author Organization [employer] Address 75 [facility] 7t [place] [address] Care Team Providers Care College Sports Assistant Name Role Phone Unavailable Primary Care Provider [...] Department Care Team Description 09/25/2024 [facility] [address] [place] [address] Melissa Carrero from Last 3 Months Social [...]
--- OUTSIDE RECORDS SUMMARY | 2024-10-21 11:11 | XMS_ITS | Encounter Summary ---
Author Organization [employer] Address 75 [facility] 7 [place] [address] Care Team Providers Care Founder & Ceo Name Role Phone Unavailable Primary Care Provider [...]
--- OUTSIDE RECORDS SUMMARY | 2024-10-21 11:11 | XMS_ITS | Encounter Summary ---
Author Organization [employer] Address 75 [facility] 7 [place] [address] Care Team Providers Care Composite Mechanic Name Role Phone Unavailable Primary Care Provider [...]
--- OUTSIDE RECORDS SUMMARY | 2024-10-21 11:11 | XMS_ITS | Encounter Summary ---
Author Organization [employer] Address 75 [facility] 7t [place] [address] Care Team Providers Care 2Nd Grade Teacher Name Role Phone Unavailable Primary Care Provider [...]
== END 2024-10-21 10:02 | disposition home or self-care (01) ==
LOC: HO.HAP 10:01
PROVIDERS: Visit Provider Nurse Practitioner Family
DX: Z13.89 Encounter for screening for other disorder (principal)

== ENCOUNTER 2024-11-25 12:31 | Outpatient (REF) | payer MEDICARE, SELFPAY ==
--- NOTE | ~2024-11-25 | MM_ITS ---
EXAMINATION: DXA BONE DENSITY AXIAL HISTORY: Z13.820 - Encounter for screening for osteoporosis TECHNIQUE: [employer] Dual energy absorptiometry (DEXA) of the lumbar spine, total left hip, and femoral neck was performed. COMPARISON: There are no prior studies for comparison. FINDINGS: The bone mineral density of the lumbar spine is 0.886 with a T-score of -2.6, and a Z-score of -0.7. This is indicative of osteoporosis. The bone mineral density of the left total hip is 0.633 with a T-score of -3.0, and a Z-score of -1.0. This is indicative of osteoporosis. The bone mineral density of the left femoral neck is 0.644 with a T-score of -2.8, and a Z-score of -0.7. This is indicative of osteoporosis. MM/XR DEXA axial skeleton IMPRESSION: Based on bone mineral density, and according to World Health Organization (WHO) criteria, the diagnosis is consistent with osteoporosis. All bone density values are in grams per centimeter squared (g/cm2). Statistically, 68% of repeat scans fall within 1 SD (+/- 0.010 g/cm2 for AP spine L1-L4) and 1 SD (+/- 0.012 g/cm2 for femur total) FRAX is a trademark of the [employer]'s [employer] for Metabolic Bone Disease, a World Health Organization (WHO) Collaborating Center. Electronically signed by: Janes Galdamez MD 11/25/2024 01:20 PM EDT
--- OUTSIDE RECORDS SUMMARY | 2024-11-25 12:57 | XMS_ITS | Encounter Summary ---
Author Organization [facility] Address [address] [place] [address] Care Team Providers Care Mds Nurse Name Role Phone JoseDexMejia Carrie SENIA Primary Care Provider [phone] Encounter Details Date Type Department Care Team ([facility] st Contact Info) Description 10/30/2024 Telephone Internal Medicine - [place] [address] [facility] [address] [place] [address] Justin Epstein MD [address] [facility] [address] [place] [address] Social History Tobacco Use Types Packs/Day Years [...] as of this encounter Progress Notes * Justin Epstein MD - 11/02/2024 11:30 AM EDT Referral is already in place. * Kasey Ceja - 10/30/2024 9:41 AM EDT My name is Kasey and I work in the Referrals/Prior Authorization Department for [facility]. This patient is currently scheduled to come into the office on 11/09/2024 at 11:20am to see Dr Chavez. Our office is attempting to obtain an insurance referral however, the [place] referrals department is unable to submit the authorization request due to a no Ambulatory referral to Cardiology order in the patient's chart. Can you please assist with submitting this order so we may work on obtaining the insurance referralfor this upcoming visit? Thank you very much for your assistance and I apologize for any inconvenience. Kasey documented in this encounter Plan of Treatment Upcoming Encounters Date Type Department Care Team (Late st Contact Info) Description 05/28/2025 10:40 AM EST Office Visit [facility] Cardiology [facility] [address] [place] [address] [place] [address] Frankie Dominguez NP [address] [place] [address] [address] [place] [address] documented as of this encounter Visit Diagnoses Not on filedocumented in this encounter Care Teams Mds Nurse Relationship Specialty Start Date End Date Carrie Jordan FNP [address] [place] [address] PCP - General Nurse Practitioner 11/02/24 documented as of this encounter
--- OUTSIDE RECORDS SUMMARY | 2024-11-25 12:57 | XMS_ITS | Encounter Summary ---
Author Organization [employer] [facility] Address 75 [facility] 7t [place] [address] Care Team Providers Care Money Market Dealer Name Role Phone Unavailable Primary Care Provider Unavailabl e Encounter Details Date Type Department Care Team (Late st Contact Info) Description 09/25/2024 [facility] [address] [place] [address] Melissa Carrero Social History Tobacco Use Types [...] as of this encounter Plan of Treatment Upcoming Encounters Date Type Department Care Team (Late st Contact Info) Description 12/02/2024 11:15 AM EDT Office Visit [facility] DENTAL [address] [place] [address] Luca Alvarez Jr., DMD [address] [place] [address] 05/11/2025 12:00 PM EDT Office Visit [facility] DENTAL [address] [place] [address] Josefina Salguero documented as of this encounter Visit Diagnoses Not on filedocumented in this encounter
--- OUTSIDE RECORDS SUMMARY | 2024-11-25 12:57 | XMS_ITS | Encounter Summary ---
Author Organization [employer] [facility] Address [address] [facility] 7 [place] [address] Care Team Providers Care Shower Room Attendant Name Role Phone Unavailable Primary Care Provider [...] Description 12/02/2024 11:15 AM EDT Office Visit [facility] DENTAL [address] [place] [address] Luca Alvarez Jr., DMD [address] [place] [address] 05/11/2025 12:00 PM EDT Office Visit [facility] DENTAL [address] [place] [address] Josefina Salguero documented as of this encounter Visit Diagnoses Not on filedocumented in this encounter
--- OUTSIDE RECORDS SUMMARY | 2024-11-25 12:57 | XMS_ITS | Encounter Summary ---
Author Organization [employer] [facility] Address [address] [facility] [address] [place] [address] Care Team Providers Care Regional Property Manager Name Role Phone Unavailable Primary Care [...] Description 12/02/2024 11:15 AM EDT Office Visit [facility] DENTAL [address] [place] [address] Luca Alvarez Jr., DMD [address] [place] [address] 05/11/2025 12:00 PM EDT Office Visit [facility] DENTAL [address] [place] [address] Josefina Salguero documented as of this encounter Visit Diagnoses Not on filedocumented in this encounter
--- OUTSIDE RECORDS SUMMARY | 2024-11-25 12:57 | XMS_ITS | Clinical Summary ---
Author Organization [employer] Address [address] [facility] 7t [place] [address] Care Team Providers Care Mangle Roll Operator Name Role Phone Unavailable Primary Care Provider [...] Encounters Date Type Department Care Team Description 11/06/2024 11:00 AM EDT Office Visit [facility] DENTAL [address] [place] [address] Tori Perales LLD Encounter for dental examination (Primary Dx) 09/25/2024 [facility] [address] [place] [address] Melissa Carrero from Last 3 Months Social [...] 2022 2:10 PM EST Plan of Treatment Upcoming Encounters Date Type Department Care Team (Late st Contact Info) Description 12/02/2024 11:15 AM EDT Office Visit [facility] DENTAL [address] [place] [address] Luca Alvarez Jr., DMD 9 [place] [address] 05/11/2025 12:00 PM EDT Office Visit [facility] DENTAL [address] [place] [address] Josefina Salguero Health Maintenance Due Date Last Done Comments Depression Screening 1946 Lipid Panel 1946 SDOH Screening 1946 Alcohol/Substance Use Screening 1958 Hepatitis C Screening 1964 RSV Patients and Patients Aged 60 years or older (1 - 1-dose 75+ series) 2021 Tobacco Screening 12/19/2024 12/20/2023 Dental Oral Exam 05/09/2025 11/06/2024, 01/2024, 05/24/2023, Additional history exists Dental Prophylaxis 05/09/2025 11/06/2024, 0 12/20/2023, 05/24/2023, Additional history exists Dental X-Ray: Bitewings 11/07/2025 11/07/19 25, 05/24/2023, 12/21/2021, Additional history exists Dental X-Ray: Full Mouth 05/25/2026 023, 08/08/2016, 10/11/2008 DTaP/Tdap/Td Vaccines (3 - Td or Tdap) 02/07/2030 02/08/2020, 05/25/2016 Zoster Vaccines Completed 02/15/2023, 11/13, 09/08/2012 Pneumococcal Vaccine: 50+ Years Completed 07/19/2023, 03/27/2017, 10/22/2014 COVID-19 Vaccine Completed 06/05/2024, 04/2023, 04/19/2023, Additional history exists Influenza Vaccine Completed 06/05/2024, , 04/19/2023, Additional history exists HIB Vaccines Aged Out No longer eligi [...] Procedure Name Priority Date/Time Associated Diagnosis Comments ORAL HYGIENE INSTRUCTIONS Routine 2024 11:00 AM EDT BITEWINGS - 4 RADIOGRAPHIC IMAGES Routine 11/06/2024 11:00 AM EDT Full PROPHYLAXIS - ADULT Routine 025 11:00 AM EDT PERIODIC ORAL EVALUATION - ESTABLISHED PATIENT Routine 11/06/2024 11:00 AM EDT INTRAORAL - COMPLETE SERIES OF RADIOGRAPHIC IMAGES Routine 05/24/2023 9:30 AM EST from Last 3 Months or Most Recently Relevant to Health Maintenance Insurance DENTAL - HSN FULL (MEDICAID)
--- OUTSIDE RECORDS SUMMARY | 2024-11-25 12:57 | XMS_ITS | Encounter Summary ---
Author Organization [employer] [facility] Address [address] [facility] 7 [place] [address] Care Team Providers Care Fixed Route Bus Operator Name Role Phone Unavailable Primary Care [...] 12/02/2024 11:15 AM EDT Office Visit [facility] DENTAL [address] [place] [address] Luca Alvarez Jr., DMD 9 [place] [address] 05/11/2025 12:00 PM EDT Office Visit [facility] DENTAL [address] [place] [address] Josefina Salguero documented as of this encounter Visit Diagnoses Not on filedocumented in this encounter
--- OUTSIDE RECORDS SUMMARY | 2024-11-25 12:57 | XMS_ITS | Clinical Summary ---
Author Organization [address] [facility] Address [address] [place] [address] Phone Care Team Providers Care Inspector Watch Parts Name Role Phone JoseDexMejia, Carrierafael CONN Primary Care Provider Allergies Active Allergy Reactions Criticality Noted Date [...] (one) time each day. Active FLUoxetine (PROzac) 60 mg tablet Take 1 tablet (60 mg total) by mouth 1 (one) time [...] bedtime. Active MULTIVITAMIN ORAL Take by mouth. Activ e famotidine (PEPCID) 40 mg tablet TAKE 1 TABLET BY MOUTH EVERY DAY 90 tablet 3 06/05/20 24 Active celecoxib (CeleBREX) 200 mg capsule TAKE 1 CAPSULE (200 MG TOTAL) BY MOUTH 1 (ONE) TIME EACH DAY IF NEEDED FOR MODERATE PAIN. 30 capsule 2 08/26/19 25 Active furosemide (LASIX) 40 mg tablet TAKE 1 TABLET BY MOUTH EVERY DAY 90 tablet 2 09/29/19 25 Active atorvastatin (LIPITOR) 10 mg tabletIndicatio ns:Hyperlipidem ia, unspecified TAKE 1 TABLET BY MOUTH EVERY DAY 90 tablet 1 10/29/19 25 Active cholecalciferol (Vitamin D3) 25 mcg (1,000 unit) capsule Take 1 capsule (1,000 Units total) by mouth 1 (one) time each day. Active fluticasone propionate (FLONASE) 50 mcg/actuation nasal spray Administer 1 spray into each nostril 1 (one) time each day. Shake gently. Before first use, prime pump. After use, clean tip and replace cap. Active atorvastatin (LIPITOR) 10 mg tabletIndicatio ns:Hyperlipidem ia, unspecified TAKE 1 TABLET BY MOUTH EVERY DAY 90 tablet 1 06/05/20 24 025 Discontinued Active Problems Problem Noted Date Diagnosed Date Bipolar 1 disorder, depresse d, mild (CMS/HCC V24, CMS/HCC V28) 05/27/2024 Assessment & Plan (11/09/2024 12:22 PM EDT): S/P TAVR (transcatheter aortic valve replacement ) 08/28/2022 Overview (05/26/2024): Done at [facility] on 08/23/22 with KM - Indications: Assessment & Plan (11/09/2024 12:22 PM EDT): No evidence of aortic stenosis aortic regurgitation 2 years following successful TAVR. This procedure was performed by Dr. Zhu. Orders: ECG 12 lead Leukocytosis 05/11/2022 Metabolic acidosis, normal anion gap (NAG) 05/11 Pulmonary edema 05/11/2022 Respiratory failure with hypoxia (CMS/HCC V24, C MS/HCC V28) 05/11/2022 Subclinical hypothyroidism 05/11/2022 Nonrheumatic mitral valve [...] for this reason I concur with Dr. Leonardo that we should evaluate for TAVR for [...] office and the TAVR coordinators at the [facility] structural heart disease program. After all the studies have been completed the patient's care will be reviewed in a multidisciplinary meeting in the next steps will be determined. Assessment & Plan (11/09/2024 12:22 PM EDT): Status post successful TAVR 2 years ago with successful clinical and hemodynamic response. Orders: ECG 12 lead Sleep disorder 07/13/2018 Overview (05/26/2024): 06/2018 Home Sleep Study did not reveal sleep apnea. Iron deficiency 06/17/2016 Morbid obesity (CMS/HCC V24, CMS/HCC V28) 2014 Assessment & Plan (11/09/2024 12:22 PM EDT): The patient continues to struggle with weight gain. She self soothes with excessive eating. She carries a tremendous amount of anxiety in her daily life. Orders: ECG 12 lead Suicide attempt by other tra nquilizer drug overdose ([facility] V24, [facility] V28) 01/27/2013 Overview (05/26/2024): Overdosed on clonazepam 01/14/13; hospitalized at the [place] unit. Left atrial enlargement 10/13/2012 Rheumatic mitral regurgitation 10/13/2012 Assessment & Plan (11/09/2024 12:22 PM EDT): Patient has moderately severe mitral regurgitation which failed to improve following TAVR for severe aortic stenosis. The patient does not have any clinical evidence of ingestive heart failure. But she is growing and seems to improve her recommend a follow-up echocardiogram next year. In the meantime the patient will keep an eye on her fluid status and report any potential evidence of congestive heart failure. Orders: ECG 12 lead Cataract 01/23/2012 Type 2 diabetes mellitus wit h cataract ([facility] V24, [facility] V28) 01/23/2012 Overview (05/26/2024): Last Assessment & Plan: Pt educated on importance of low carb, low fat diet & exercise in lowering A1C & LDL. Educational literature sent from the [employer] regarding diet and diabetes management. Msg to MD for increased LDL, Lipitor ordered. 04/10/12 A1C 6.1 LDL 44. Case closed. Assessment & Plan (11/09/2024 12:22 PM EDT): Orders: ECG 12 lead Depressive disorder 10/06/2008 Assessment & Plan (11/09/2024 12:22 PM EDT): - Continue monitoring weight and maintain current physical activity level, including walking 3-4 miles three to four times a week. - Avoid quick head movements to prevent dizziness. Rheumatic fever 10/06/2008 Encounters Date Type Department Care Team Description 11/09/2024 11:20 AM EDT Office Visit [facility] Cardiology [facility] [address] [place] [address] Ekta Leonardo MD Rheumatic mitral regurgitation (Primary Dx); Aortic valve stenosis, severe; S/P TAVR (transcatheter aortic valve replacement); Type 2 diabetes mellitus with cataract ([facility] V24, [facility] V28); Morbid obesity ([facility] V24, [facility] V28); Depressive disorder; Bipolar 1 disorder, depressed, mild ([facility] V24, [facility] V28) 10/30/2024 Telephone Internal Medicine - [place] [address] [place] [address] Justin Epstein MD 09/24/2024 Telephone [facility] Cardiology [facility] [address] [place] [address] Justin Epstein MD Referral (Received routine paper referral for established patient. Sent to Kirsty simpson) from Last 3 Months Immunizations Name Administration [...] Date Site/Laterality Comments GASTRIC BYPASS 1998 PROCEDURE: AR GASTRIC RSTCV W/BYP W/SM INT RCNSTJ LIMIT ABSRPJ HERNIA REPAIR PROCEDURE: HISTORICAL HERNIA REPAIR/UMB CYST REMOVAL PROCEDURE: AR EXCISION PILONIDAL CYST/SINUS SIMPLE CHOLECYSTECTOMY 03/14/10 PROCEDURE: HISTORICAL CHOLECYSTECTOMY COLONOSCOPY 06/25/16 PROCEDURE: AR COLONOSCOPY FLX DX W/COLLJ SPEC WHEN PFRMD; COMMENT: normal UPPER GASTROINTESTINAL ENDOSCOPY 06/25/16 PROCEDURE: UPPER GI ENDOSCOPY/EXAM; COMMENT: normal post op gastric bypass appearance CHOLECYSTECTOMY PROCEDURE: AR LAPAROSCOPY SURG CHOLECYSTECTOMY COLONOSCOPY PROCEDURE: HISTORICAL COLONOSCOPY Medical History Medical History Date Comments Depression DX:Depression; C OMMENT: ` Rheumatic fever 10/06/2008 DX:Rheumatic fev er Morbid obesity ([facility] V24, [facility] V28) 10/21/2014 DX:Morbid obesity (HCC) Iron deficiency 06/17/2016 DX:Iron deficien cy Type 2 diabetes mellitus wit h cataract ([facility] V24, [facility] V28) 01/23/2012 DX:Type 2 diabetes mellitus with cataract ([facility]) Hyperglycemia 05/11/2022 DX:Hyperglycemia Family History Medical History [...] Sign Reading Time Taken Comments Blood Pressure 120/72 11/09/2024 11:22 AM EDT Pulse 58 11/09/2024 11:22 AM EDT Temperature - - Respiratory Rate - - Oxygen Saturation 98% 11/09/2024 11:22 AM EDT Inhaled Oxygen Concentration - - Weight 60 kg (132 lb 3.2 oz) 11/09/2024 11:22 AM EDT Height 152.4 cm (5') 11/09/2024 11:22 AM EDT Body Mass Index 25.82 11/09/2024 11:22 AM EDT Plan of Treatment Upcoming Encounters Date Type Department Care Team (Late st Contact Info) Description 05/28/2025 10:40 AM EST Office Visit [facility] [address] [place] [address] Frankie Dominguez NP [address] [place] [address] [address] [place] [address] Health Maintenance Due Date Last Done Comments Diabetes: Annual Foot Exam 1955 Diabetes: Annual Retina Eye Exam 1955 Depression Screening 06/23/2022 Falls Risk Assessment 06/23/2022 Medicare Annual Wellness Visit 06/23/2022 Osteoporosis Screening (Bone Density Screening) 06/23/2022 Social Influencers of Health Screening 06/23/2022 Diabetes: Annual Urine Albumin-Creatinine Ratio (uACR) 11/20/2022 11/20/2021 Zoster Vaccines (3 of 3) 04/12/2023 023, 12/07/2021, 09/08/2012 Diabetes: Blood Sugar Control Test (HGBA1C) 04/14/2024 10/14/2023 COVID-19 Vaccine ( season) 2024 06/05/2024, 04/23/2023, 04/19/2023, Additional history exists Diabetes: Annual GFR (Glomerular Filtration Rate) 05/04/2025 05/04/2024, 05/04/2024, 05/04/2024 DTaP,Tdap,and Td Vaccines (2 - Td or Tdap) 05/25/2026 05/25/2016 Cholesterol Screening (Lipid Panel) 05/04/2029 05/04/2024, 05/04/2024 Hepatitis C Screening Completed 02/15/2010 Pneumococcal Vaccine: 50+ Years Completed 07/19/2023, 03/27/2017, 10/22/2014 RSV Immunization Adult Patients Completed 07/19/2023 Influenza Vaccine Completed 06/05/2024, , 04/19/2023, Additional [...] Procedure Name Priority Date/Time Associated Diagnosis Comments ECG 12-LEAD Routine 11/09/2024 11:35 AM EDT Rheumatic mitral regurgitation Aortic valve stenosis, severe S/P TAVR (transcatheter aortic valve replacement) Type 2 diabetes mellitus with cataract ([facility] V24, [facility] V28) Morbid obesity ([facility] V24, [facility] V28) ANNUAL BMP BLOOD TEST Routine 05/04/2024 LIPID PANEL Routine 05/04/2024 HEMOGLOBIN A1C Routine 10/14/2023 URINE ALBUMIN CREATININE RATIO Routine 11/20/2021 HEPATITIS C SCREENING Routine 02/15/2010 from Last 3 Months or Most Recently Relevant to Health Maintenance Results * ECG 12 lead (11/09/2024 11:35 AM EDT) [facility] Ventricular Rate ECG 58 BPM GEMUSE Atrial Rate 58 BPM GEMUSE P-R Interval 162 ms GEMUSE QRS Duration 96 ms GEMUSE Q-T Interval 476 ms GEMUSE QTc 467 ms GEMUSE P Wave [place] 69 degrees GEMUSE R [place] 80 degrees GEMUSE T [place] 62 degrees GEMUSE ECG Interpretation Sinus bradycardia with marked sinus arrhythmia Otherwise normal ECG When compared with ECG of 07-MAY-2022 07:13, No significant changes are noted Confirmed by EKTA LEONARDO ([id number]) on 11/09/2024 12:24:20 PM GEMUSE 11/09/2024 11:3 5 AM EDT 11/09/2024 12:24 PM EDT Ekta Leonardo MD ECG ORDERABLES Final Result GEMUSE * Annual BMP Blood Test (05/04/2024) [facility] Annual BMP Blood Test abstracted Result [facility] Historical Provider HEALTH MAINTENANCE Final Result * Lipid panel (05/04/2024) [facility] LDL/HDL Ratio 2 0 - 4 Triglycerides 54 0 - 150 mg/dL Cholesterol 161 0 - 200 mg/dL HDL 98 >=40 mg/dL LDL Cholesterol 53 0 - 100 mg/dL Blood Venous blood specimen / Unknown Historical Provider LAB BLOOD ORDERABLES Neha l Result * Hemoglobin A1c (10/14/2023) [facility] Hemoglobin A1C 5.2 <=6.5 % Blood Venous blood specimen / Unknown Result [facility] Historical Provider LAB BLOOD ORDERABLES Neha l Result * Urine Albumin Creatinine Ratio (11/20/2021) [facility] Urine Albumin Creatinine Ratio abstracted us Historical Provider HEALTH MAINTENANCE Final Result * Hepatitis C Screening (02/15/2010) Hepatitis C Screening abstracted us Historical Provider HEALTH MAINTENANCE Final Result from Last 3 Months or Most Recently Relevant to Health Maintenance Insurance [employer] Care Teams Inspector Watch Parts Relationship Specialty Start Date End Date Carrie Jordan FNP [address] [place] [address] PCP - General Nurse Practitioner 11/02/24
--- OUTSIDE RECORDS SUMMARY | 2024-11-25 12:57 | XMS_ITS | Encounter Summary ---
Author Organization [facility] Address [address] [facility] 7 [place] [address] Care Team Providers Care Deep Fat Cook Fry Name Role Phone Unavailable Primary Care Provider [...] Description 12/02/2024 11:15 AM EDT Office Visit [facility] DENTAL [address] [place] [address] Luca Alvarez Jr., DMD [address] [place] [address] 05/11/2025 12:00 PM EDT Office Visit [facility] DENTAL [address] [place] [address] Josefina Salguero documented as of this encounter Visit Diagnoses Not on filedocumented in this encounter
== END 2024-11-25 12:32 | disposition home or self-care (01) ==
LOC: HO.MAMMO 12:31
PROVIDERS: PCP Nurse Practitioner Family; Visit Provider Nurse Practitioner Family
DX: Z12.31 Encounter for screening mammogram for malignant neoplasm of breast (principal); Z13.820 Encounter for screening for osteoporosis; Z78.0 Asymptomatic menopausal state
CPT/HCPCS: 77063; 77067; 77080

== ENCOUNTER → 2024-11-25 13:00 | Outpatient (BNV) | payer MEDICARE, SELFPAY | PROVIDERS: PCP Nurse Practitioner Family; Visit Provider Radiology Diagnostic Radiology | DX: E28.39 Other primary ovarian failure (principal) | CPT/HCPCS: 77080 ==

== ENCOUNTER 2024-12-03 15:34 | Outpatient (REF) | payer MEDICARE, SELFPAY ==
[2024-12-03 16:09] LABS: Urine Cytology See Pathology rpt
== END 2024-12-03 15:35 | disposition home or self-care (01) ==
LOC: HO.LNP 15:34
PROVIDERS: PCP Nurse Practitioner Family; Visit Provider Nurse Practitioner Family
DX: N39.46 Mixed incontinence (principal); R31.29 Other microscopic hematuria
CPT/HCPCS: 51798; 81003; 88112; 99202

== ENCOUNTER 2024-12-03 15:34 | Outpatient (AMB) | payer MEDICARE, SELFPAY ==
--- OUTSIDE RECORDS SUMMARY | 2024-12-03 15:37 | XMS_ITS | Encounter Summary ---
Author Organization [facility] Address [address] [place] [address] Care Team Providers Care Car Inspection And Repair Manager Name Role Phone JoseDexMejia Carrie SENIA Primary Care Provider [phone] Encounter Details Date Type Department Care Team ([facility] st Contact Info) Description 10/30/2024 Telephone Internal Medicine - [place] [address] [place] [phone] Justin Epstein MD [address] [place] [address] Social History Tobacco Use Types Packs/Day Years [...] work 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 This patient is currently scheduled to come into the office on 11/09/2024 at 11:20am to see Dr Chavez. Our office is attempting to obtain an insurance referral however, the [place] referrals department is unable to submit the [...] Description 05/28/2025 10:40 AM EST Office Visit [facility] Cardiology [facility] [address] [place] [address] [place] [address] Frankie Dominguez NP [address] [place] [address] [address] [place] [address] documented as of this encounter Visit Diagnoses Not on filedocumented in this encounter Care Teams Car Inspection And Repair Manager Relationship Specialty Start Date End Date Carrie Jordan FNP [address] [place] [address] PCP - General Nurse Practitioner 11/02/24 documented as of this encounter
--- NOTE | 2024-12-03 15:40 | A.OFFVIS_ITS ---
Intake Visit Reasons: urinary incontinence Intake Note: New Patient presents for initial visit for urinary incontinence Urology Medications: none Blood Thinner: aspirin PVR: 5ml's Microsoft Dynamics Manager Architect Required: No Accompanied by: Self / Same As Patient Allergies No Known Allergies Allergy (Verified 12/03/24 16:12) Medication List - Last Reconciled 12/03/24 by SENIA Stephens- amitriptyline 10 mg PO amoxicillin 2,000 mg PO aspirin (Adult Low Dose Aspirin) 81 mg PO DAILY atorvastatin 10 mg PO DAILY blood sugar diagnostic (FreeStyle Lite Strips) ONCE PER DAY buspirone 20 mg PO BID cholecalciferol (vitamin D3) 50 mcg PO DAILY famotidine 40 mg PO DAILY fluoxetine 20 mg PO fluticasone propionate 50 mcg/actuation 1 spray intranasal DAILY furosemide 40 mg PO DAILY omeprazole 40 mg PO DAILY potassium chloride ER mEq PO DAILY topiramate 50 mg PO DAILY trazodone 100 mg PO HPI Comments Details: Tana is a pleasant 78-year-old female patient of Dr. Jordan. She has a past medical history of anxiety, depression, GERD, IBS, arthritis, diabetes, heart disease, sinusitis, iron deficiency anemia, hard of hearing, vitamin-D deficiency, subarachnoid hemorrhage, subdural hematoma, coronary artery disease, lung nodules, CHF, and mitral valve disease. She presents to the office today as a new patient for mixed urinary incontinence. In discussion with the patient today she reports having followed up with her PCP in discussing ongoing issue she has been having with urinary leakage at which time urology referral was made for further assessment evaluation. She does report a previous history of 6 vaginal deliveries however only 2 were live births. She reports noting episodes of mixed urinary incontinence as well as urinary leakage. She reports utilizing approximately 4-5 Dorcas pads per day. She discusses having had a gastric sleeve bypass many years ago and has lost over 200 lb intentionally and has felt this is helped her immensely with her overall health and well-being. She denies hematuria, dysuria, foul smelling urine, changes to urinary stream, flank pain, fever, and or chills. We did discussed further treatment options of these urological issues as well as further treatment options and risks and benefits of these treatment options. In office urinalysis results reviewed with the patient today trace microscopic hematuria noted. When asked she denies any previous history of nicotine dependence and or workplace chemical exposure. I discussed reasons for blood in the urine may include but are not limited to kidney stones, cancer in the urinary tract, kidney stone disease or inflammatory conditions of the urinary tract. PVR 5 mL She discusses her reluctancy in taking medications. All questions were answered. She otherwise offers no other issues or concerns at this time. [facility] Medical History History of rib fracture (~2023) History of mammogram Anxiety and depression Imbalance GERD (gastroesophageal reflux disease) IBS (irritable bowel syndrome) Arthritis Diabetes Heart valve problem Heart disease Sinusitis History of transcatheter aortic valve implantation (CAMI) Surgical History History of colonoscopy (~2016) Hx of cholecystectomy H/O gastric bypass Family History Mother Asthma HTN (hypertension) Mental health disorder Sister Asthma HTN (hypertension) Mental health disorder Father HTN (hypertension) Social History Household Members: None Both parents involved: No Caregiver staying overnight: No Housing: House Are you a primary director of health care marketing to a significant other at home: No Do you presently have visiting nurse or other home services: No 75 years or older and lives alone: No Alcohol intake: never Patient Tobacco Use Status: Never used Tobacco e-Cigarette/Vaping Use: Never Used Second Hand Smoke Exposure: Yes Current occupational status: retired Cognitive needs: No Hearing needs: Yes (hearing aid) Vision needs: Yes (wear glasses) Review of Systems Const Reports no additional complaints Eyes Reports no additional complaints ENT Reports as per HPI Card Reports as per HPI Resp Reports no additional complaints GI Reports as per HPI Reports as per HPI Musc Reports as per HPI Neuro Reports as per HPI Psych Reports as per HPI Endo Reports as per HPI Physical Exam Const General: cooperative, healthy appearing, comfortable, no acute distress, well developed, alert and awake Orientation/consciousness: patient oriented x3 Limitations: no limitations HEENT Head: Yes normal to inspection, Yes normocephalic and Yes atraumatic Ears: hearing grossly normal bilaterally Eyes General: appearance normal, both eyes and all related structures Neck Neck: Yes normal visual inspection and Yes trachea midline Chest Chest palpation & inspection: normal inspection of the chest Resp Effort & Inspection: normal respiratory effort and able to speak in complete sentences Cardio Rate: regular rate GI Inspection: Yes normal to inspection General: Yes no CVA tenderness Back/Spine/Pelvis Back: no CVA tenderness Skin General skin exam: no rashes or lesions noted Neuro General: patient oriented x3 Extrem General: Yes normal to inspection Psych Appearance: grossly normal and well kempt Mental Status: mental status grossly normal Speech and movement: Normal speech and movement present and Clear speech present Affect: normal affect Attitude: cooperative Thought process: Normal thought process present Thought content: Normal thought content present Insight: Fair insight present (Psych) Judgement: Fair judgement present (Psych) Office Procedures Post Void Residual Post Residual Void Post Void Residual (PVR): 5 16375-Hwcf Void Residual by ultrasound Results AMB Urinalysis, Automated UA Leukoctes 0 Mike/uL Last Edit by Five Delta on 12/03/24 16:22 UA Nitrite Last Edit by Five Delta on 12/03/24 16:22 UA Urobilinogen 0.2 mg/dL Last Edit by Five Delta on 12/03/24 16:22 UA Protein 0 mg/dL Last Edit by Five Delta on 12/03/24 16:22 UA pH 6.5 Last Edit by Five Delta on 12/03/24 16:22 UA Blood 10 Johnny/uL Last Edit by Five Delta on 12/03/24 16:22 UA Specific Berry 1.010 Last Edit by Five Delta on 12/03/24 16:22 UA Ketone Last Edit by Five Delta on 12/03/24 16:22 UA Bilirubin 0 mg/dL Last Edit by Five Delta on 12/03/24 16:22 UA Glucose 0 mg/dL Last Edit by Five Delta on 12/03/24 16:22 Results Reviewed Results Reviewed: Laboratory Last Values Urine pH (Auto) 6.5 12/03/24 15:42 Specific Berry (Auto) 1.010 12/03/24 15:42 Urine Protein (Auto) 0 mg/dL 12/03/24 15:42 Glucose (UA)(Auto) 0 mg/dL 12/03/24 15:42 Urine Blood (Auto) 10 Johnny/uL 12/03/24 15:42 Urine Bilirubin (Auto) 0 mg/dL 12/03/24 15:42 Urine Urobilinogen (Auto) 0.2 mg/dL 12/03/24 15:42 Leukocyte Esterase (Auto) 0 Mike/uL 12/03/24 15:42 Assessment & Plan Assessment & Plan (1) Urinary incontinence: Comment: refer to Uro Code(s): R32 - Unspecified urinary incontinence Category: Medical Qualifiers: Urinary Incontinence type: mixed stress and urge incontinence Qualified Code(s): N39.46 - Mixed incontinence (2) Microscopic hematuria: Code(s): R31.29 - Other microscopic hematuria Category: Medical Plan In office urinalysis results reviewed with the patient today; as noted above; will send for urine cytology. PVR 5 mL. We discussed potential causes of lower urinary tract symptoms patient is experiencing as well as further treatment options and risks and benefits of these treatment options. Will obtain retroperitoneal ultrasound for further assessment evaluation. She does not wish to trial pelvic floor therapy and or trial of medications. Will schedule for in office urodynamics for further assessment evaluation. Follow-up per doctor's orders; or sooner with any issues, concerns, and or questions. Orders: Orders Urine Cytology Today Z13.9 - Encounter for screening, unspecified AMB Urinalysis Automated Today Z13.9 - Encounter for screening, unspecified AMB Post Void Residual by ultrasound Today N39.46 - Mixed incontinence US retroperitoneal comp Today N39.46 - Mixed incontinence Patient Instructions: The patient had an opportunity to ask questions regarding the treatment plan. All questions were answered. Physical exam, labs, and imaging were discussed and reviewed in detail. As well as risks, benefits, and discussion of treatment choices. No major barriers to understanding were identified. The patient expressed understanding and agreement with the above treatment plan. The patient was made aware they should contact our office by phone for worsening of their current condition, the appearance of new symptoms, or with any questions or concerns. Compliance is encouraged with any medications and follow up testing that is ordered. It is a privilege to be allowed the opportunity to participate in? your urological care.? Again, if you have any questions or concerns If you have any questions or concerns please do not hesitate to contact me. The office is [phone]. This note is constructed using voice recognition software. While every effort has been made to ensure accuracy hand presser errors may have been included. Yours sincerely, CHERYL Stephens Coding Level of Care Code New Pt Level 3 (04617) Diagnoses Mixed stress and urge urinary incontinence N39.46 Urinary Incontinence type: mixed stress and urge incontinence Microscopic hematuria R31.29 CPT Codes Post Residual Void - PVR CPT Code: 76037-Kvup Void Residual by ultrasound ([id number])
== END 2024-12-03 16:24 | disposition home or self-care (01) ==
LOC: HO.HUSH 15:35
PROVIDERS: PCP Nurse Practitioner Family; Visit Provider Nurse Practitioner Family
DX: N39.46 Mixed incontinence (principal); R31.29 Other microscopic hematuria; Z13.9 Encounter for screening, unspecified
CPT/HCPCS: 99203

== ENCOUNTER 2024-12-11 13:38 | Outpatient (RCR) | payer MEDICARE, SELFPAY ==
[2024-11-18 10:57] VITALS: BP 122/62; PULSE 58
--- NOTE | 2024-11-18 12:21 | MHC.PT.EP ---
[facility] [place] Office [place] Office [place] Office [address] Pawan Aleman [address] [phone] F: [phone] F: [phone] F: [phone] F: [phone] Physical Therapy Plan of Care Date of Evaluation: 11/18/24 Date of Surgery: Diagnosis: unsteadiness on feet hx of falling risk for falls Assessment: 78 y/o female referred to PT with unsteady gait and hx of falling. Pt reports difficulty walking without veering for several years, poor balance, and dizziness that is room-spinning with turning head, rolling in bed, looking up, or bending forwrad. Room-spinning will last 30seconds or so. Examination shows slightly impaired smooth pursuits and saccades (hx of subarachnoid hemorrhage), negative VBI, mild sway with eyes closed static balance, impaired dynamic gait index, and positive for BPPV in L PC (other canals not assessed d/t time). Recommend PT 2x/week for 5 week sto address impairments, implement HEP and optimize functional mobility. Frequency and Duration: The patient will be seen 2x/week for 5 weeks Short Term Goals: Assess all 6 canals for BPPV Initiate balance HEP Custodial Goals: Pt will be (-) for nystagmus of reports of vertigo in all diagnostic directions B to resolutions of BPPV Tolerate position changes without complaints vertigo to improve safety and return to pre-onset level Pt to be able to functionally move in all planes without provocation of dizziness and return to PLOF Pt to be educated on sx and indications to return to therapy when needed in 4 weeks -I with balance HEP in order to prevent falls Treatment Plan: Modalities to reduce pain, spasms and effusion. Manual therapy to restore motion and function. Therapeutic exercise to improve strength and flexibility. Neuromuscular re-education for posture and balance. Therapeutic activities to return to functional activities of daily living. Electronically signed by: Lorna Fritz PT Please sign and return to therapist. Thank you for your referral.
--- NOTE | 2025-01-14 14:17 | MHC.PT.DC ---
[facility] [place] Office [place] Office [place] Office [address] Pawan Aleman [address] [phone] F: [phone] F: [phone] F: [phone] F: [phone] Physical Therapy Discharge Report Diagnosis: unsteadiness on feet hx of falling risk for falls Date of Surgery: Date of Evaluation: 11/18/24 Date of Discharge: 12/11/24 Treatments to Date: 6 Cancellations to Date: 0 No Shows to Date: 0 Discharge Status: Improved Function Independent with HEP Discharge Summary: Overall pt has made good progress with improved upright gait pattern, decreased veering and good pace. She is negative for BPPV however continues with some hypofunction with head turns while walking but is gradually improving. She is I with HEP and no further questions at this time and appropriate for d/c. Will keep chart open for 30 days in case of BPPV recurrence however Electronically signed by: Lorna Fritz PT Please sign and return to therapist. Thank you for your referral.
== END 2025-01-14 14:18 | disposition home or self-care (01) ==
LOC: HO.PT 13:38
PROVIDERS: PCP Nurse Practitioner Family; Visit Provider Nurse Practitioner Family
DX: R26.81 Unsteadiness on feet (principal); Z91.81 History of falling
CPT/HCPCS: 95992; 97110; 97112; 97162

== ENCOUNTER 2024-12-11 15:15 | Outpatient (AMB) | payer MEDICARE, SELFPAY ==
--- NOTE | 2024-12-11 15:07 | A.OFFPC_ITS ---
Intake Visit Reasons: review bone density results Intake Note: Tana presents for a telehealth appointment to discuss her DEXA scan results. Allergies No Known Allergies Allergy (Verified 12/11/24 16:11) Medication List - Last Reconciled 12/11/24 by Carrie Jordan [facility]- amitriptyline 10 mg PO amoxicillin 2,000 mg PO aspirin (Adult Low Dose Aspirin) 81 mg PO DAILY atorvastatin 10 mg PO DAILY blood sugar diagnostic (FreeStyle Lite Strips) ONCE PER DAY buspirone 20 mg PO BID cholecalciferol (vitamin D3) 50 mcg PO DAILY famotidine 40 mg PO DAILY fluoxetine 20 mg PO fluticasone propionate 50 mcg/actuation 1 spray intranasal DAILY furosemide 40 mg PO DAILY omeprazole 40 mg PO DAILY potassium chloride ER mEq PO DAILY topiramate 50 mg PO DAILY trazodone 100 mg PO TID Tobacco use date assessed: 12/11/24 Fall risk assessment: No Falls in past year Last assessed Fall Risk: 12/11/24 Dental Screening Dental Screen Date: 12/11/24 Did you have a dental visit in the last 12 months?: Yes Did you have a dental problem in the last 6 months where you did not have access to dental care?: No Was dental information given to patient?: Patient has dentist HPI HPI Comments History of Present Illness Details 79 y/o F with GERD, CHF with seconday hy peraldosteronism, ELANA, macular degeneration, rheumatic fever, MDD, history of suicide attempt w/ tranquilizer drug overdose 2012,benzo use disorder, DM 2, Iron def anemia, KAW, mitral valve disease, urinary incont, Vit D def, subarachnoid hemorrhage (bifrontal, biparietal,L occipital, R leah fissure and quadigeminal cistern 03/2024 s/p fall), subdural hematoma R tentorium, low density white matter changes, CAD (mild vasc calcification of aorta CT chest 03/2024), mid to distal esophageal wall thickening, R rib fractures 2023, lung nodules SurgHx: s/p TAVR 2022, s/p gastric bypass FHx: Y son, oren 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 Colon: Robyn 2016 reports no polyps repeat in 10 years declined future sc reening Mammo: 11/2024 WNL DEXA : 11/2024 Osteoporosis, refer to [facility] endo for eval and tx PAP aged out Vaccines: Shingles, pneumococcal, RSV, Flu UTD Tdap 2016 AAA screen: NA EKG: completed today [place] of Care: Optho cards bhn counselor and med prescriber Accounting Advisory Services Manager Endo History of Present Illness - The patient is a 79-year-old female pr esenting with a discussion about osteoporosis diagnosis and treatment options. - Bone density tests confirm osteoporosi s with high fracture risk. - Prior fall occurred without resultant fractures. - she is interested in treatment and agr ees to endo referral - Previous vertigo symptoms improved wit h PT. Review of Systems - Musculoskeletal: Reports neck pain dur ing walking, potentially related to osteoporosis. - Neurological: Reports improvement in v ertigo symptoms with exercises. Results - Bone density test indicating osteoporo sis. See below Assessment and Plan 1. Osteoporosis - Diagnosed via bone density test with h igh fracture risk. - Plan to see endocrinology for treatmen t 2. History of Fall - Previous event without fractures; focu s on preventing future falls. 3. BPPV - Improved with therapy; continue manage ment with exercises. RTO DECEMBER SCHEDULED, SOONER PRN Telehealth Attestation The patient has been explained that this is an interactive (audio/video) telehealth encounter and what that consists of. The patient understands and wishes to proceed. [employer] platform was used. Total time spent caring for the patient today was 15 minutes. This includes time spent before the visit reviewing the chart, time spent during the visit, and time spent after the visit on documentation, reviewing laboratory results, diagnostic imaging, medications, performing a medically necessary evaluation, counseling on diagnoses, care coordination, ordering appropriate tests, ordering appropriate medications, review of tests performed by other providers, reporting test results with the patient, communication with other healthcare providers. [facility] Medical History History of rib fracture (~2023) History of mammogram Anxiety and depression Imbalance GERD (gastroesophageal reflux disease) IBS (irritable bowel syndrome) Arthritis Diabetes Heart valve problem Heart disease Sinusitis History of transcatheter aortic valve implantation (CAMI) Surgical History History of colonoscopy (~2017) Hx of cholecystectomy H/O gastric bypass Family History Mother Asthma HTN (hypertension) Mental health disorder Sister Asthma HTN (hypertension) Mental health disorder Father HTN (hypertension) Social History Household Members: None Both parents involved: No Caregiver staying overnight: No Housing: House Are you a primary career guidance counselor to a significant other at home: No Do you presently have visiting nurse or other home services: No 75 years or older and lives alone: No Alcohol intake: never Patient Tobacco Use Status: Never used Tobacco e-Cigarette/Vaping Use: Never Used Second Hand Smoke Exposure: Yes service: No Current occupational status: retired Cognitive needs: No Hearing needs: Yes (hearing aid) Vision needs: Yes (wear glasses) Questionnaire Thrive Questionnaire Date Thrive assessed: 09/23/24 ELANA-7 AMB Questionnaire ELANA-7 Date ELANA - 7 assessed: 09/23/24 Source: Developed by Drs. Janes Nation, Debi Alcaraz, Regis Samuels and colleagues, with an educational darrell from [employer]. Physical exam (Primary Care) Tobacco/Smoking Status: Tobacco use Status Tobacco use date assessed 12/11/24 12/11/24 15:13 Patient Tobacco Use Status Never used Tobacco 12/11/24 15:13 e-Cigarette/Vaping Use Never Used 12/11/24 15:13 Thrive Assessment: Date of Thrive Assessment Date Thrive assessed 09/23/24 12/11/24 15:13 Telehealth Telehealth Telehealth Platform: [facility] Location of provider rendering services: practice address Location of patient: address on file Patient Identification confirmed using: Name, : Yes Telehealth method: voice only Patient verbally consented to treatment: Yes Patient verbally consented to billing insurance company: Yes Patient informed of any privacy concerns related to visit: Yes Minutes spent on Phone/Video with Pt.: 7 Results Reviewed Results Reviewed: [facility] [address] [place], [place] [address] Mammography Report Signed Patient: Tana Estrada MR#: [id number] : 1945 Acct:[id number] Age/Sex: 78 / F ADM Date: 11/25/24 Loc: [facility] Attending Dr: Carrie LUNA Ordering Physician: Carrie Jordan Results: Date of Service: 11/25/24 Follow Up: Procedure(s): XR DEXA axial skeleton Accession Number(s): [id number] cc: Carrie Jordan~ EXAMINATION: DXA BONE DENSITY AXIAL HISTORY: Z13.820 - Encounter for screening for osteoporosis TECHNIQUE: [employer] Dual energy absorptiometry (DEXA) of the lumbar spine, total left hip, and femoral neck was performed. COMPARISON: There are no prior studies for comparison. FINDINGS: The bone mineral density of the lumbar spine is 0.886 with a T-score of -2.6, and a Z-score of -0.7. This is indicative of osteoporosis. The bone mineral density of the left total hip is 0.633 with a T-score of -3.0, and a Z-score of -1.0. This is indicative of osteoporosis. The bone mineral density of the left femoral neck is 0.644 with a T-score of -2.8, and a Z-score of -0.7. This is indicative of osteoporosis. MM/XR DEXA axial skeleton IMPRESSION: Based on bone mineral density, and according to World Health Organization (WHO) criteria, the diagnosis is consistent with osteoporosis. All bone density values are in grams per centimeter squared (g/cm2). Statistically, 68% of repeat scans fall within 1 SD (+/- 0.010 g/cm2 for AP spine L1-L4) and 1 SD (+/- 0.012 g/cm2 for femur total) FRAX is a trademark of the [employer] [place] for Metabolic Bone Disease, a World Health Organization (WHO) Collaborating Center. Electronically signed by: Janes aGldamez MD 11/25/2024 01:20 PM EDT Dictated By: Janes Galdamez MD Signed By: <Electronically signed by Janes Galdamez MD in [place]> 11/25/24 1320 DD/ 1300 TD/TT: 11/25/24 1315 Food Science Technician: Coding Level of Care Code Tele Est Pt Level 2 (05191) Complex EM visit Add On G2211 Diagnoses Age-related osteoporosis without current pathological fracture M81.0 Osteoporosis type: age-related Presence of current pathological fracture: without current pathological fracture Benign paroxysmal positional vertigo due to bilateral vestibular disorder H81 .13 Laterality: bilateral Assessment & Plan Assessment & Plan (1) Osteoporosis: Onset Date: ~11/2024 Comment: refer [facility] for eval & tx Code(s): M81.0 - Age-related osteoporosis without current pathological fracture Category: Medical Qualifiers: Osteoporosis type: age-related Presence of current pathological fracture: without current pathological fracture Qualified Code(s): M81.0 - Age- related osteoporosis without current pathological fracture (2) BPPV (benign paroxysmal positional vertigo): Code(s): H81.10 - Benign paroxysmal vertigo, unspecified ear Category: Medical Qualifiers: Laterality: bilateral Qualified Code(s): H81.13 - Benign paroxysmal vertigo, bilateral Plan . Orders: Referrals Endocrinology Referral M81.0 - Age-related osteoporosis without current pathological fracture
--- OUTSIDE RECORDS SUMMARY | 2024-12-11 15:18 | XMS_ITS | Data Portability ---
Author Organization [place] - [facility], Allergy Address [address] [address] Care Team Providers Care School Director Name Role Phone LELE MALHOTRA Primary Care Provider [phone] Assessment No assessment recorded. Plan of Treatment Reminders Order Date Submit Date Provider Last Modified By Organization Details Last Modified Time Details Appointments None recorded. Lab None recorded. Referral vestibula r therapy referral 2023 024 2 [facility], [address] [place] [address], [address] Floor, [place], [address], 14:56:28 Procedures None recorded. Surgeries None recorded. [...] Time Sensorineural hearing loss of bilateral ears [id number] Active 2023 RONNIE MIRANDA [address] [facility] [address], [place], [address] 4 13:27:50 Allergic rhinitis 74211656 Active 2023 MITESH Otero MD 100 [facility] [address], [place], [address], [place] - [facility] 13:52:18 Dizziness and giddiness [id number] Active 2023 MITESH Otero MD 100 [facility] [address], [place], [address], [place] - [facility] 13:54:43 Problem Notes None recorded. Procedures Surgical History Date Name Laterality Status Provider Name and Address Organization Details Recorded Time 03/12/2024 Comp Audio with Tymps - 30189 & 72219 completed RONNIE MIRANDA [address] [address], [place], [address], [facility] - [facility] 03/12/2024 13:27:54 Imaging Results None recorded. Procedure Notes None recorded. Medical Equipment None [...] SNOMED-CT Code Diagnosis ICD10 Code Diagnosis Note [id number] MITESH GARCIA MD [facility] [address] [address] 03/12/2024 12:59:43 03/13/2024 07:37:21 Sensorineural hearing loss of bilateral ears [id number] H90.3 Right Ear:Mild to severe SNHL with excellent speech discrimina tion.Type A tympanogra m.Left Ear:Mild to severe SNHL with excellent speech discrimina tion.Type A tympanogra m. continue hearing aid use. Allergic rhinitis 435160 04 J30.9 Discussed allergy testing but she did SCIT in the past and was not interested . We will observe for now. Dizziness and giddiness [id number] R42 She does not have true vertigo. [...] Recorded Advance Directives Directive None Recorded Payers Insurance Date Sequence Insurance Name Policy Number Policy Cardenas Covered Member ID Cardenas Member ID Guarantor Name 03/13/2024 1 [employer] [facility] (MEDICARE REPLACEMENT HMO) Tana Estrada [id number] Tana Estrada Notes Date Note Type Note [...] and flonase without benefit. MITESH GARCIA MD [address] [place] [address], [phone], [facility] - [facility] 03/12/2024 13:56:02 OBGyn Episode No OBEpisode recorded.
== END 2024-12-11 16:18 | disposition home or self-care (01) ==
LOC: HO.HMCFM 15:15
PROVIDERS: PCP Nurse Practitioner Family; Visit Provider Nurse Practitioner Family
DX: M81.0 Age-related osteoporosis without current pathological fracture (principal); H81.13 Benign paroxysmal vertigo, bilateral

== ENCOUNTER → 2024-12-11 15:15 | Outpatient (BNVA) | payer MEDICARE, SELFPAY | PROVIDERS: PCP Nurse Practitioner Family; Visit Provider Nurse Practitioner Family ==

== ENCOUNTER 2024-12-30 08:58 | Outpatient (AMB) | payer MEDICARE, SELFPAY ==
--- NOTE | 2024-12-30 09:03 | MHC.PC.OV ---
Vital Signs 12/30/24 09:12 Height 5 ft Weight 135 lb 6 oz BMI 26.4 BP 108/67 Blood Pressure Location Rt brachial Position Sitting Respiration 12 Pulse 60 Pulse Source Pulse Oximeter Temp 97.6 F Temp Source Oral Pulse Oximetry (%) 99 Oxygen Delivery Method Room Air Intake Visit Reasons: Med Management, 3 month follow up Intake Note: 3 month follow up to review med Sprinkler Fitter Required: No Allergies No Known Allergies Allergy (Verified 12/30/24 09:30) Medication List - Last Reconciled 12/30/24 by Carrie Jordan, [employer] FEEDER- amitriptyline 10 mg PO amoxicillin 2,000 mg PO aspirin (Adult Low Dose Aspirin) 81 mg PO DAILY atorvastatin 10 mg PO DAILY blood sugar diagnostic (FreeStyle Lite Strips) ONCE PER DAY buspirone 20 mg PO BID cholecalciferol (vitamin D3) 50 mcg PO DAILY famotidine 40 mg PO DAILY fluoxetine 20 mg PO fluticasone propionate 50 mcg/actuation 1 spray intranasal DAILY furosemide 40 mg PO DAILY omeprazole 40 mg PO DAILY potassium chloride ER mEq PO DAILY topiramate 50 mg PO DAILY trazodone 100 mg PO TID Tobacco use date assessed: 12/30/24 Fall risk assessment: No Falls in past year Last assessed Fall Risk: 12/30/24 Dental Screening Dental Screen Date: 12/30/24 Did you have a dental visit in the last 12 months?: Yes Did you have a dental problem in the last 6 months where you did not have access to dental care?: No Was dental information given to patient?: Patient has dentist HPI HPI Comments History of Present Illness Details 79 y/o F with GERD, CHF with seconday hyperaldosteronism, ELANA, macular degeneration, rheumatic fever, MDD, history of suicide attempt w/ tranquilizer drug overdose 2012,benzo use disorder, DM 2, Iron def anemia, ASSINIBOINE AND [place]ES, mitral valve disease, urinary incont, Vit D def, subarachnoid hemorrhage (bifrontal, biparietal,L occipital, R leah fissure and quadigeminal cistern 03/2024 s/p fall), subdural hematoma R tentorium, low density white matter changes, CAD (mild vasc calcification of aorta CT chest 03/2024), mid to distal esophageal wall thickening, R rib fractures 2023, lung nodules, osteoporosis SurgHx: s/p TAVR 2022, s/p gastric bypass FHx: Y son, oren 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 Colon: [place] 2016 reports no polyps repeat in 10 years declined future screening Mammo: 11/2024 wnl DEXA : 11/2024 Osteoporosis PAP aged out Vaccines: Shingles, pneumococcal, RSV, Flu UTD Tdap 2016 AAA screen: NA EKG: completed today [place] of Care: Optho cards bhn counselor and med prescriber Orthopedic Dentist Endo Here today for routine chronic condition f/u Osteoporosis - did not schedule w/ endo. Asked she get this info today and schedule. Urine Incont - saw Uro at [facility]. Note reviewed. Decided to take meds. She has not started yet. Does not want US. I sent mesage to [facility] Uro to cancel this. Next appt 01/2025. Dizziness is better w/ PT. Completed. Given home exercises. Reports klonopin causes her to feel dizzy; if takes at HS it can make her sleep through alarms. Taking all meds as directed, including Vit D. No falls. No hospital visit. A1c done today 5.4% Cont to have episodes of lower blood sugar, as low as 68 mg/dl. This is in the setting of gastric bypass. Mood is depressed, using food as drug , low motivation; active w/ outside prescriber. Did see Cards since last visit, i dont have this consult but she reports pleased, will see me in 6 months Results: EKG 10/15/23 NSR with PAC Echo 08/24/22 LV mild dilation, EF 50%, severe L atrium dilation, bioprosthetic valve in aortic position, trace perivalvular leak, severe mitral annular calcification, MV severely thickened and calcified, severe MVR labs 09/23/2024 normal electrolytes and renal function hemoglobin A1c 5.3%, normal CBC normal LFTs mild elevation in alk-phos 121, normal lipid profile B12, low vitamin-D 22, normal folate and TSH urine microalbumin Physical Exam General: Well developed, well nourished, in no acute distress. Appears stated age. Head: Normocephalic, atraumatic. Eyes: Pupils are equal, round and reactive to light and accommodation. Conjunctivae are clear. Lungs: Clear to auscultation bilaterally. No rales, rhonchi or wheeze noted. Good air flow in all beatty. Heart: Regular rate and rhythm. No click, rubs or gallops are noted. 3/6 murmur. Pulses: Peripheral pulses are equal and palpable bilaterally. Extremities: No clubbing, cyanosis nor edema is noted. Neurologic: Gait and station normal. Cranial Nerves 2-12 intact. Motor strength grossly symmetrical and intact. No sensory loss. Psych: Normal eye contact, affect and mood appropriate, and normal interactions. Patient is alert and appropriate to context. Plan: Advised to let psych team know about sx to monitor and adjust meds as needed Call Endo at [facility] to treat Osteoporosis Cont all meds, including Vit D FU with Uro as scheduled to review start of meds for urinary incont. Completed Vestibular therapy. RTO 04/07 for routine fu, sooner as needed Keep sAWV 10/13/25 Total time spent caring for the patient today was 45 minutes. This includes time spent before the visit reviewing the chart, time spent during the visit, and time spent after the visit on documentation, reviewing laboratory results, diagnostic imaging, medications, performing a medically necessary evaluation, counseling on diagnoses, care coordination, ordering appropriate tests, ordering appropriate medications, review of tests performed by other providers, reporting test results with the patient, communication with other healthcare providers. [facility] Medical History History of rib fracture (~2023) History of mammogram Anxiety and depression Imbalance GERD (gastroesophageal reflux disease) IBS (irritable bowel syndrome) Arthritis Diabetes Heart valve problem Heart disease Sinusitis History of transcatheter aortic valve implantation (CAMI) Surgical History History of colonoscopy (~2016) Hx of cholecystectomy H/O gastric bypass Family History Mother Asthma HTN (hypertension) Mental health disorder Sister Asthma HTN (hypertension) Mental health disorder Father HTN (hypertension) Social History (Reviewed 12/03/24 @ 15:41 by Huseyin Mathews, [facility] [place]) Household Members: None Both parents involved: No Caregiver staying overnight: No Housing: House Are you a primary skin care technician to a significant other at home: No Do you presently have visiting nurse or other home services: No 75 years or older and lives alone: No Alcohol intake: never Patient Tobacco Use Status: Never used Tobacco e-Cigarette/Vaping Use: Never Used Second Hand Smoke Exposure: Yes service: No Current occupational status: retired Cognitive needs: No Hearing needs: Yes (hearing aid) Vision needs: Yes (wear glasses) Questionnaire PHQ-9 Over the last 2 weeks, how often have you been bothered by any of the following problems? 1. Little interest or pleasure in doing things: not at all 2. Feeling down, depressed, or hopeless: not at all 3. Trouble falling or staying asleep, or sleeping too much: not at all 4. Feeling tired or having little energy: not at all 5. Poor appetite or overeating: not at all 6. Feeling bad about yourself - or that you are a failure or have let yourself or your family down: not at all 7. Trouble concentrating on things, such as reading the newspaper or watching television: not at all 8. Moving or speaking so slowly that other people could have noticed. Or the opposite - being so fidgety or restless that you have been moving around a lot more than usual: not at all 9. Thoughts that you would be better off or of hurting yourself in some way: not at all Total score: 0 Depression Screening Interpretation: Negative Depression Screening Done: Yes 79663 - PHQ-9 Billing: Yes Source: Developed by Drs. Janes Nation, Debi Alcaraz, Regis Samuels and colleagues, with an educational darrell from [employer]. Thrive Questionnaire Date Thrive assessed: 12/30/24 I am a: Patient What is your living situation today?: I have a steady place to live Within the past 12 months, did the food you bought not last and you didn't have the money to get more?: Never true Within the past 12 months, did you worry whether your food would run out before you got money to buy more?: Never true Do you have trouble paying for medicines?: No Do you have trouble getting transportation to medical appointments?: No Do you have trouble paying your heating and electricity bill?: No Do you have trouble taking care of your child, family member or friend?: No Do you have trouble with day-to-day activities such as bathing, preparing meals, shopping, managing finances, etc.?: No Are you currently unemployed and looking for a job?: No Are you interested in more education?: Yes Currently or been in a relationship where the following occur: No concerns reported THRIVE Score: 0 ELANA-7 AMB Questionnaire ELANA-7 Date ELANA - 7 assessed: 12/30/24 Feeling nervous, anxious, or on edge: 0 = Not at all Not being able to stop or control worryin = Not at all Worrying too much about different things: 0 = Not at all Trouble relaxin = Not at all Being so restless that it is hard to sit still: 0 = Not at all Becoming easily annoyed or irritable: 0 = Not at all Feeling afraid as if something awful might happen: 0 = Not at all Total ELANA-7 score (0-4 normal; 5-9 mild; 10-14 moderate; 15-21 severe): 0 Source: Developed by Drs. Janes Nation, eDbi Alcaraz, Regis Samuels and colleagues, with an educational darrell from [employer]. ELANA-7 Assessment Billing ELANA-7 Assessment Tool: ELANA-7 Assessment 44951 Physical exam (Primary Care) Vital Signs: Last Vital Signs Temp 97.6 F 12/30/24 09:12 Pulse 60 12/30/24 09:12 Resp 12 12/30/24 09:12 BP 108/67 12/30/24 09:12 Pulse Ox 99 12/30/24 09:12 Oxygen Delivery Method Room Air 12/30/24 09:12 BMI result Body Mass Index 26.4 Tobacco/Smoking Status: Tobacco use Status Tobacco use date assessed 12/30/24 12/30/24 09:08 Patient Tobacco Use Status Never used Tobacco 12/30/24 09:03 e-Cigarette/Vaping Use Never Used 12/30/24 09:03 PHQ-9: PHQ-9 Score PHQ-9: Total score 0 12/30/24 09:08 Depression Screening Interpretation: Negative Thrive Assessment: Date of Thrive Assessment Date Thrive assessed 12/30/24 12/30/24 09:08 Currently or been in a relationship where the following occur: No concerns reported Results AMB Hemoglobin A1c AMB Hemoglobin A1c 5.4 % Last Edit by Ar Anne MA on 12/30/24 09:38 Coding Level of Care Code Est Pt Level 5 (25129) Complex EM visit Add On G2211 Diagnoses Type 2 diabetes mellitus with hypoglycemia without coma, without long-term current use of insulin E11.649 Diabetes mellitus longterm insulin use: without long wall mining machine tender use Diabetes mellitus complication status: with hypoglycemia Diabetes mellitus complication detail: without coma Age-related osteoporosis without current pathological fracture M81.0 Osteoporosis type: age-related Presence of current pathological fracture: without current pathological fracture Vitamin D deficiency E55.9 Mixed stress and urge urinary incontinence N39.46 Urinary Incontinence type: mixed stress and urge incontinence Benign paroxysmal positional vertigo due to bilateral vestibular disorder H81.13 Laterality: bilateral ELANA (generalized anxiety disorder) F41.1 Moderate episode of recurrent major depressive disorder F33.1 Major depression recurrence: recurrent Active/Remission status: currently active Major depression episode severity: moderate Mitral valve disease I05.9 Additional Codes ELANA-7 Assessment Billing - ELANA-7 Assessment Tool: ELANA-7 Assessment 85889 ([id number]) PHQ-9 - 10444 - PHQ-9 Billing: Yes ([id number]) Assessment & Plan Assessment & Plan (1) DM2 (diabetes mellitus, type 2): Code(s): E11.9 - Type 2 diabetes mellitus without complications Category: Medical Qualifiers: Diabetes mellitus long wall mining machine tender insulin use: without longterm use Diabetes mellitus complication status: with hypoglycemia Diabetes mellitus complication detail: without coma Qualified Code(s): E11.649 - Type 2 diabetes mellitus with hypoglycemia without coma (2) Osteoporosis: Onset Date: ~11/2024 Comment: refer [facility] for eval & tx Code(s): M81.0 - Age-related osteoporosis without current pathological fracture Category: Medical Qualifiers: Osteoporosis type: age-related Presence of current pathological fracture: without current pathological fracture Qualified Code(s): M81.0 - Age-related osteoporosis without current pathological fracture (3) Vitamin D deficiency: Code(s): E55.9 - Vitamin D deficiency, unspecified Category: Medical (4) Urinary incontinence: Comment: refer to Uro Code(s): R32 - Unspecified urinary incontinence Category: Medical Qualifiers: Urinary Incontinence type: mixed stress and urge incontinence Qualified Code(s): N39.46 - Mixed incontinence (5) BPPV (benign paroxysmal positional vertigo): Code(s): H81.10 - Benign paroxysmal vertigo, unspecified ear Category: Medical Qualifiers: Laterality: bilateral Qualified Code(s): H81.13 - Benign paroxysmal vertigo, bilateral (6) ELANA (generalized anxiety disorder): Code(s): F41.1 - Generalized anxiety disorder Category: Medical (7) MDD (major depressive disorder): Code(s): F32.9 - Major depressive disorder, single episode, unspecified Category: Medical Qualifiers: Major depression recurrence: recurrent Active/Remission status: currently active Major depression episode severity: moderate Qualified Code(s): F33.1 - Major depressive disorder, recurrent, moderate (8) Mitral valve disease: Code(s): I05.9 - Rheumatic mitral valve disease, unspecified Category: Medical Plan . Orders: Orders AMB Hemoglobin A1c Today E11.9 - Type 2 diabetes mellitus without complications Patient Instructions: Plan: Advised to let psych team know about sx to monitor and adjust meds as needed Call Endo at [facility] to treat Osteoporosis Cont all meds, including Vit D FU with Uro as scheduled to review start of meds for urinary incont. Completed Vestibular therapy. RTO 04/07 for routine fu, sooner as needed Keep sAWV 10/13/25
[2024-12-30 09:12] VITALS: BP 108/67; PULSE 60; RESP 12; TEMP 36.4; O2SAT 99; BMI 26.4
--- OUTSIDE RECORDS SUMMARY | 2024-12-30 09:37 | XMS_ITS | Data Portability ---
Author Organization [place] - [facility], Allergy Address [address] [address] Care Team Providers Care Combination Machine Tool Operator Name Role Phone LELE MALHOTRA Primary Care Provider Assessment No assessment recorded. Plan of Treatment Reminders Order Date Submit Date Provider Last Modified By Organization Details Last Modified Time Details Appointments None recorded. Lab None recorded. Referral vestibula r therapy referral 2023 024 [email or web address] 2 [facility], [address] [place] [address], [address], [place], [address], 14:56:28 Procedures None recorded. Surgeries None recorded. [...] Time Sensorineural hearing loss of bilateral ears [id number] Active 2023 RONNIE MIRANDA 100 [facility] [address], [place], [address] 4 13:27:50 Allergic rhinitis 80352409 Active 2023 MITESH Otero MD 100 [facility] 100, [place], [address], [place] [facility] [place] 13:52:18 Dizziness and giddiness 109250344 Active 2023 MITESH Otero MD 100 [facility] 100, [place], [address], [place] - [facility] 13:54:43 Problem Notes None recorded. Procedures Surgical History Date Name Laterality Status Provider Name and Address Organization Details Recorded Time 03/12/2024 Comp Audio with Tymps - 10959 & 92611 completed RONNIE MIRANDA [address] [address], [place], [address], [facility] - [facility] 03/12/2024 13:27:54 Imaging Results None recorded. Procedure [...] SNOMED-CT Code Diagnosis ICD10 Code Diagnosis Note [id number] MITESH GARCIA MD [facility] [address] [address] 03/12/2024 12:59:43 03/13/2024 07:37:21 Sensorineural hearing loss of bilateral ears [id number] H90.3 Right Ear:Mild to severe SNHL with excellent speech discrimina tion.Type A tympanogra m.Left Ear:Mild to severe SNHL with excellent speech discrimina tion.Type A tympanogra m. continue hearing aid use. Allergic rhinitis 672422 04 J30.9 Discussed allergy testing but she did SCIT in the past and was not interested . We will observe for now. Dizziness and giddiness [id number] R42 She does not have true vertigo. [...] Member ID Guarantor Name 03/13/2024 1 [employer] [facility] [employer] (MEDICARE REPLACEMENT HMO) Tana Estrada [id number] Tana Estrada Notes Date Note Type Note [...] and flonase without benefit. MITESH GARCIA MD [address] [place] [address], [phone], [facility] - [facility] 03/12/2024 13:56:02 OBGyn Episode No OBEpisode recorded.
== END 2024-12-30 09:47 | disposition home or self-care (01) ==
LOC: HO.HMCFM 09:00
PROVIDERS: PCP Nurse Practitioner Family; Visit Provider Nurse Practitioner Family
DX: E11.649 Type 2 diabetes mellitus with hypoglycemia without coma (principal); F33.1 Major depressive disorder, recurrent, moderate; E11.9 Type 2 diabetes mellitus without complications; M81.0 Age-related osteoporosis without current pathological fracture; E55.9 Vitamin D deficiency, unspecified; N39.46 Mixed incontinence; H81.13 Benign paroxysmal vertigo, bilateral; F41.1 Generalized anxiety disorder; I05.9 Rheumatic mitral valve disease, unspecified

== ENCOUNTER → 2024-12-30 08:58 | Outpatient (BNVA) | payer MEDICARE, SELFPAY | PROVIDERS: PCP Nurse Practitioner Family; Visit Provider Nurse Practitioner Family | DX: K21.9 Gastro-esophageal reflux disease without esophagitis (principal); I50.9 Heart failure, unspecified; E11.649 Type 2 diabetes mellitus with hypoglycemia without coma; E55.9 Vitamin D deficiency, unspecified; R91.8 Other nonspecific abnormal finding of lung field; M81.0 Age-related osteoporosis without current pathological fracture; N39.46 Mixed incontinence; H81.13 Benign paroxysmal vertigo, bilateral; F41.1 Generalized anxiety disorder; F33.1 Major depressive disorder, recurrent, moderate; I05.9 Rheumatic mitral valve disease, unspecified; Z91.81 History of falling | CPT/HCPCS: 83036; 96127; 99212 ==

== ENCOUNTER 2025-03-03 10:13 | Outpatient (AMB) | payer MEDICARE, SELFPAY ==
--- NOTE | 2025-03-03 10:16 | MHC.OFFVIS ---
Vital Signs 03/03/25 10:21 Height 4 ft 10.74 in Weight 134 lb 14.766 oz BMI 27.5 BP 112/62 Blood Pressure Location Rt brachial Position Sitting Pulse 64 Pulse Source Pulse Oximeter Pulse Oximetry (%) 97 Oxygen Delivery Method Room Air Intake Visit Reasons: Age-related osteoporosis without current pathologi Intake Note: New patient internally referred by PCP of Age-related Osteoporosis, last [place]EX[place] was on 11/25/24 [place] [facility] [place] 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 Required: No Accompanied by: Self / Same As Patient Allergies No Known Allergies Allergy (Verified 03/03/25 10:21) Medication List - Last Reconciled 03/03/25 by Janes Watson MD amitriptyline 10 mg PO amoxicillin 2,000 mg PO aspirin (Adult Low Dose Aspirin) 81 mg PO DAILY atorvastatin 10 mg PO DAILY blood sugar diagnostic (FreeStyle Lite Strips) ONCE PER DAY buspirone 20 mg PO BID cholecalciferol (vitamin D3) 50 mcg PO DAILY famotidine 40 mg PO DAILY fluoxetine 20 mg PO fluticasone propionate 50 mcg/actuation 1 spray intranasal DAILY furosemide 40 mg PO DAILY omeprazole 40 mg PO DAILY potassium chloride ER mEq PO DAILY topiramate 50 mg PO DAILY trazodone 100 mg PO TID HPI Comments Details: The patient is a 79-year-old female presenting with osteoporosis. She was recently diagnosed following a bone density scan, with no prior treatment or specialist consultation for osteoporosis. The patient denies any history of fractures in the hip, spine, forearm, or ankle. The patient has a history of heart disease and has undergone aortic valve replacement. She expresses concern about calcium supplementation due to her heart condition. The patient reports experiencing vertigo, which was diagnosed by a food safety field specialist. She describes an episode where vertigo returned after getting out of bed quickly. The patient has a history of a skull fracture from an incident six months ago. She denies any family history of osteoporosis or hip fractures. First diagnosed in recently .Never seen specialist Not Received treatment in the past No history of pathologic fracture or ONJ. Has several servings of dietary calcium per day in the form of cheese , broccoli, cottage cheese . Not Takes Calcium supplement . Takes 2000 IU of Vitamin D daily. Takes PPI, -anticoagulant,- antiepileptic or -glucocorticoid medication. occasional weight bearing exercise The patient is a member of a gym but reports minimal attendance and exercise. She mentions walking three to four miles two to three times a week, although recently she has not been walking as much. Fracture history: No Height loss: Yes MARKETING TEAM LEAD history: Menarche at age? Menopause ? age - menses irregular Denies history of Kidney stones: family history of Osteoporosis in mothers , sisters and aunt but no hip fracture. UTD on dental cleanings and sees dentist every 6 months. No planned upcoming dental work or extractions. No tobacco use or heavy ETOH abuse DXA dated 11/25/24: FINDINGS: The bone mineral density of the lumbar spine is 0.886 with a T-score of -2.6, and a Z-score of -0.7. This is indicative of osteoporosis. The bone mineral density of the left total hip is 0.633 with a T-score of -3.0, and a Z-score of -1.0. This is indicative of osteoporosis. The bone mineral density of the left femoral neck is 0.644 with a T-score of -2.8, and a Z-score of -0.7. This is indicative of osteoporosis. MM/XR DEXA axial skeleton IMPRESSION: Based on bone mineral density, and according to World Health Organization (WHO) criteria, the diagnosis is consistent with osteoporosis. Labs: [facility] Medical History History of rib fracture (~2023) History of mammogram Anxiety and depression Imbalance GERD (gastroesophageal reflux disease) IBS (irritable bowel syndrome) Arthritis Diabetes Heart valve problem Heart disease Sinusitis History of transcatheter aortic valve implantation ([facility]) Surgical History History of colonoscopy (~2016) Hx of cholecystectomy H/O gastric bypass Family History Mother Asthma HTN (hypertension) Mental health disorder Sister Asthma HTN (hypertension) Mental health disorder Father HTN (hypertension) Social History Household Members: None Both parents involved: No Caregiver staying overnight: No Housing: House Are you a primary pediatric care coordinator to a significant other at home: No Do you presently have visiting nurse or other home services: No 75 years or older and lives alone: No Alcohol intake: never Patient Tobacco Use Status: Never used Tobacco e-Cigarette/Vaping Use: Never Used Second Hand Smoke Exposure: Yes service: No Current occupational status: retired Cognitive needs: No Hearing needs: Yes (hearing aid) Vision needs: Yes (wear glasses) Physical Exam Vital Signs: Last Vital Signs Pulse 64 03/03/25 10:21 BP 112/62 03/03/25 10:21 Pulse Ox 97 03/03/25 10:21 Oxygen Delivery Method Room Air 03/03/25 10:21 BMI result Body Mass Index 27.5 There are no Cushingoid features. Absence of blue sclera. Absence of kyphosis. Thyroid gland is of nl size and weighs 15 gms. There are no thyroid nodules palpated. Lungs CTA. Heart S1 S2 Reg R/R Abdominal exam benign. Muscle strength 5/5 . Examination of spine reveals absence of tenderness on palpation Assessment & Plan Assessment & Plan (1) Osteoporosis: Onset Date: ~11/2024 Comment: [place] [facility] [place] [place] Code(s): M81.0 - Age-related osteoporosis without current pathological fracture Category: Medical Qualifiers: Osteoporosis type: age-related Presence of current pathological fracture: without current pathological fracture Qualified Code(s): M81.0 - Age-related osteoporosis without current pathological fracture Plan: This 79-year-old white female with a history of osteoporosis with partial secondary workup found to have low vitamin-D. Currently on vitamin-D replacement Plan is to complete the secondary workup by rechecking 25 hydroxy vitamin-D, urine immunofixation, serum phosphorus, 24 hour urine for calcium and creatinine. Assuming vitamin-D replete and secondary workup negative would strongly consider the use of anabolic agent initially considering very low bone density and high risk for fracture but would use either Tymlos or Forteo considering history of coronary artery disease. 1. Osteoporosis The patient has moderate to severe osteoporosis with a T-score of -3. A secondary workup is recommended, including blood tests and a 24-hour urine collection to assess calcium levels. The patient should consume 1200 mg of calcium daily, preferably from dietary sources, and consider calcium citrate supplements. Pharmacologic therapy may be initiated based on the workup results, with options including antiresorptive and anabolic therapies. I discussed with the patient the diagnosis of osteoporosis and the importance of calcium and vitamin D supplementation. We reviewed the potential treatment options, including antiresorptive and anabolic therapies, and the need for a secondary workup to guide treatment decisions. I emphasized the importance of dietary calcium intake and the use of calcium citrate supplements if necessary. We also discussed her heart condition and the need to consider this in her osteoporosis management. I advised her to monitor her vertigo symptoms and avoid sudden movements. Follow-up was planned in four months to reassess her condition and treatment plan. - Consume 1200 mg of calcium daily, preferably from dietary sources. - Consider calcium citrate supplements if dietary intake is insufficient. - Monitor vertigo symptoms and avoid sudden movements. - Follow up in four months for reassessment and further management. The patient had an opportunity to ask questions regarding treatment plan. The patient expressed understanding and agreement with the above treatment plan. Patient was informed and verbally consented to the use of an ambient scribe for clinic note documentation during this visit. Orders: Orders Vitamin D 25-OH Total Today M81.0 - Age-related osteoporosis without current pathological fracture Immunofixation, Random Urine Today M81.0 - Age-related osteoporosis without current pathological fracture Phosphorus Today M81.0 - Age-related osteoporosis without current pathological fracture Creatinine, 24 Hr Group Today M81.0 - Age-related osteoporosis without current pathological fracture Calcium, 24 Hr Ur Today M81.0 - Age-related osteoporosis without current pathological fracture Coding Level of Care Code New Pt Level 4 (32556) Diagnoses Age-related osteoporosis without current pathological fracture M81.0 Osteoporosis type: age-related Presence of current pathological fracture: without current pathological fracture
[2025-03-03 10:21] VITALS: BP 112/62; PULSE 64; O2SAT 97; BMI 27.5
--- OUTSIDE RECORDS SUMMARY | 2025-03-03 11:26 | XMS_ITS | Clinical Summary ---
Author Organization [address] [facility] Address [address] [place] [address] Phone Care Team Providers Care Technology Advisor Name Role Phone JoseRadha Carrie CONN Primary Care Provider Allergies Active Allergy Reactions Criticality Noted Date Comments Other 05/27/2024 Seasonal allergies Pollen Extracts 10/05/2008 Medications acetaminophen (TYLENOL) 325 mg tablet Take 2 tablets (650 mg total) by mouth every 6 (six) hours if needed. Active amoxicillin (AMOXIL) 500 mg tablet Take 4 tablets 1 hour prior to dental procedure 4 Active busPIRone (BUSPAR) 10 mg tablet Take 2 tablets (20 mg total) by mouth 1 (one) time each day. Active FLUoxetine (PROzac) 60 mg tablet Take 1 tablet (60 mg total) by mouth 1 (one) time each day. Active topiramate (TOPAMAX) 50 mg tablet Take 1 tablet (50 mg total) by mouth 1 (one) time each day. 1 Active traZODone (DESYREL) 100 mg tablet Take 3 tablets (300 mg total) by mouth at bedtime. Active MULTIVITAMIN ORAL Take by mouth. Activ e famotidine (PEPCID) 40 mg tablet TAKE 1 TABLET BY MOUTH EVERY DAY 90 tablet 3 4 Active celecoxib (CeleBREX) 200 mg capsule TAKE 1 CAPSULE (200 MG TOTAL) BY MOUTH 1 (ONE) TIME EACH DAY IF NEEDED FOR MODERATE PAIN. 30 capsule 2 5 Active furosemide (LASIX) 40 mg tablet TAKE 1 TABLET BY MOUTH EVERY DAY 90 tablet 2 5 Active atorvastatin (LIPITOR) 10 mg tabletIndication s:Hyperlipidemia , unspecified TAKE 1 TABLET BY MOUTH EVERY DAY 90 tablet 1 5 Active cholecalciferol (Vitamin D3) 25 mcg (1,000 unit) capsule Take 1 capsule (1,000 Units total) by mouth 1 (one) time each day. Active fluticasone propionate (FLONASE) 50 mcg/actuation nasal spray Administer 1 spray into each nostril 1 (one) time each day. Shake gently. Before first use, prime pump. After use, clean tip and replace cap. Active potassium chloride (KLOR-CON) 10 mEq CR tablet TAKE 1 TABLET BY MOUTH EVERY DAY 90 tablet 3 5 Active Active Problems Problem Noted Date Diagnosed Date Bipolar 1 disorder, depresse d, mild (CMS/HCC V24, CMS/HCC V28) 05/27/2024 Assessment & Plan (11/09/2024 12:22 PM EDT): S/P TAVR (transcatheter aortic valve replacement ) 08/28/2022 Overview (05/26/2024): [place] [facility] [place] with [facility] - Indications: Assessment [...] office and the TAVR coordinators at the [facility] structural heart disease program. After all [...] sleep apnea. Iron deficiency 06/17/2016 Morbid obesity ([facility] V24, [facility] V28) 2014 Assessment & Plan (11/09/2024 12:22 PM EDT): The patient continues to struggle with weight gain. She self soothes with excessive eating. She carries a tremendous amount of anxiety in her daily life. Orders: ECG 12 lead Suicide attempt by other tra nquilizer drug overdose ([facility] V24, [facility] V28) 01/27/2013 Overview (05/26/2024): Overdosed on clonazepam [...] Type 2 diabetes mellitus wit h cataract ([facility] [place]24, [facility] V28) 01/23/2012 Overview (05/26/2024): Last Assessment & [...] movements to prevent dizziness. Rheumatic fever 10/06/2008 Immunizations Name Administration Dates Next Due Influenza [...] Date Site/Laterality Comments GASTRIC BYPASS 1998 PROCEDURE: DC GASTRIC RSTCV W/BYP W/SM INT RCNSTJ LIMIT ABSRPJ HERNIA REPAIR PROCEDURE: HISTORICAL HERNIA REPAIR/UMB CYST REMOVAL PROCEDURE: DC EXCISION PILONIDAL CYST/SINUS SIMPLE CHOLECYSTECTOMY 03/14/10 PROCEDURE: HISTORICAL CHOLECYSTECTOMY COLONOSCOPY 06/25/16 PROCEDURE: DC COLONOSCOPY FLX DX W/COLLJ SPEC WHEN PFRMD; COMMENT: normal UPPER GASTROINTESTINAL ENDOSCOPY 06/25/16 PROCEDURE: UPPER GI ENDOSCOPY/EXAM; COMMENT: normal post op gastric bypass appearance CHOLECYSTECTOMY PROCEDURE: DC LAPAROSCOPY SURG CHOLECYSTECTOMY COLONOSCOPY PROCEDURE: HISTORICAL COLONOSCOPY Medical History Medical History Date Comments Depression DX:Depression; C OMMENT: ` Rheumatic fever 10/06/2008 DX:Rheumatic fev er Morbid obesity (CMS/HCC V24, CMS/HCC V28) 10/21/2014 DX:Morbid obesity (HCC) Iron deficiency 06/17/2016 DX:Iron deficien cy Type 2 diabetes mellitus wit h cataract (CMS/HCC V24, CMS/HCC V28) 01/23/2012 DX:Type 2 diabetes mellitus with [...] Description 05/28/2025 10:40 AM EST Office Visit [facility] [address] [place] [address] Frankie Dominguez NP [address] [place] [address] [address] [place] [address] Health Maintenance Due Date Last Done Comments Diabetes: Annual Foot Exam 1955 Diabetes: Annual Retina Eye Exam 1955 Falls Risk Assessment 06/23/2022 Medicare Annual Wellness Visit 06/23/2022 Osteoporosis Screening (Bone Density Screening) 06/23/2022 Social Influencers of Health Screening 06/23/2022 Diabetes: Annual Urine Albumin-Creatinine Ratio (uACR) 11/20/2022 11/20/2021 Zoster Vaccines (3 of 3) 04/12/2023 023, 12/07/2021, 09/08/2012 Diabetes: Blood Sugar Control Test (HGBA1C) 04/14/2024 10/14/2023 Depression Screening 07/15/2024 COVID-19 Vaccine ( season) 2024 06/05/2024, 04/23/2023, 04/19/2023, Additional history exists Influenza Vaccine (#1) 2025 , 04/23/2023, 04/19/2023, Additional history exists Diabetes: Annual [...] * Annual BMP Blood Test (05/04/2024) Pathologist [facility] Annual BMP Blood Test abstracted Result [facility] Provider HEALTH MAINTENANCE Final Result * Lipid panel (05/04/2024) [facility] LDL/HDL Ratio 2 0 - 4 Triglycerides 54 0 - 150 mg/dL Cholesterol 161 0 - 200 mg/dL HDL 98 >=40 mg/dL LDL Cholesterol 53 0 - 100 mg/dL Blood Venous blood specimen / Unknown Result [facility] Provider LAB BLOOD ORDERABLES Neha l Result * Hemoglobin A1c (10/14/2023) [facility] Hemoglobin A1C 5.2 <=6.5 % Blood Venous blood specimen / Unknown Result [facility] Provider LAB BLOOD ORDERABLES Neha l Result * Urine Albumin Creatinine Ratio (11/20/2021) Pathologist [facility] Urine Albumin Creatinine Ratio abstracted Result [facility] Provider HEALTH MAINTENANCE Final Result * Hepatitis C Screening (02/15/2010) [facility] Hepatitis C Screening abstracted [facility] Provider HEALTH MAINTENANCE Final Result from Last 3 Months or Most Recently Relevant to Health Maintenance Insurance [employer] Care Teams Technology Advisor Relationship Specialty Start Date End Date Carrie Jordan FNP [address] [place] [address] PCP - General Nurse Practitioner 11/02/24
--- OUTSIDE RECORDS SUMMARY | 2025-03-03 11:26 | XMS_ITS | Clinical Summary ---
Author Organization [employer] Address [address] [facility] [address] [place] [address] Care Team Providers Care Chocolate Molder Name Role Phone Unavailable Primary Care Provider [...] Encounters Date Type Department Care Team Description 12/02/2024 11:15 AM EDT Office Visit [facility] [address] [place] [address] Luca Alvarez Jr., DMD from Last 3 Months Social History Tobacco [...] EDT Gender Identity Choose not to disclose 3 2:10 PM EST Sexual Orientation Choose not to disclose 2022 2:10 PM EST Plan of Treatment Upcoming Encounters Date Type Department Care Team (Late st Contact Info) Description 05/11/2025 12:00 PM EDT Office Visit [facility] [address] [place] [id number] Josefina Salguero Health Maintenance Due Date Last Done Comments Depression Screening 1945 Lipid Panel 1945 SDOH Screening 1945 Alcohol/Substance Use Screening 1958 Hepatitis C Screening 1964 COVID-19 Vaccine ( season) 2024 06/05/2024, 04/23/2023, 04/19/2023, Additional history exists Tobacco Screening 12/19/2024 12/20/2023 Influenza Vaccine (#1) 2025 , 04/23/2023, 04/19/2023, Additional history exists Dental Oral Exam 05/09/2025 11/06/2024, 01/2024, 05/24/2023, [...] 50+ Years Completed 07/19/2023, 03/27/2017, 10/22/2014 RSV Patients and Patients Aged 60 years or older Completed 07/19/2023 HIB Vaccines Aged Out No [...] Procedure Name Priority Date/Time Associated Diagnosis Comments CASE PRESENTATION, DETAILED AND EXTENSIVE TREATMENT PLANNING Routine 12/02/2024 11:15 AM EDT 2 B(V) RESIN-BASED COMPOSITE - 1 SURF, POSTERIOR Routine 12/02/2024 11:15 AM EDT Full PROPHYLAXIS - ADULT Routine 025 11:00 AM EDT BITEWINGS - 4 RADIOGRAPHIC IMAGES Routine 11/06/2024 11:00 AM EDT PERIODIC ORAL EVALUATION - ESTABLISHED PATIENT Routine 11/06/2024 11:00 AM EDT INTRAORAL - COMPLETE SERIES OF RADIOGRAPHIC IMAGES Routine 05/24/2023 9:30 AM EST from Last 3 Months or Most Recently Relevant to Health Maintenance Insurance DENTAL - HSN FULL (MEDICAID)
== END 2025-03-03 11:03 | disposition home or self-care (01) ==
LOC: HO.ENCR 10:14
PROVIDERS: PCP Nurse Practitioner Family; Visit Provider Internal Medicine Endocrinology, Diabetes & Metabolism
DX: M81.0 Age-related osteoporosis without current pathological fracture (principal)
CPT/HCPCS: 99204

== ENCOUNTER → 2025-03-03 10:13 | Outpatient (BNVA) | payer MEDICARE, SELFPAY | PROVIDERS: PCP Nurse Practitioner Family; Visit Provider Internal Medicine Endocrinology, Diabetes & Metabolism | DX: M81.0 Age-related osteoporosis without current pathological fracture (principal); E55.9 Vitamin D deficiency, unspecified; Z95.2 Presence of prosthetic heart valve | CPT/HCPCS: 99202 ==

== ENCOUNTER 2025-04-07 10:25 | Outpatient (AMB) | payer MEDICARE, SELFPAY ==
--- NOTE | 2025-04-07 10:27 | MHC.PC.OV ---
Vital Signs 04/07/25 10:34 Height 5 ft Weight 130 lb 4 oz BMI 25.4 BP 112/67 Blood Pressure Location Rt brachial Position Sitting Respiration 12 Pulse 72 Pulse Source Pulse Oximeter Temp 98.2 F Temp Source Oral Pulse Oximetry (%) 99 Oxygen Delivery Method Room Air Intake Visit Reasons: 6 mo 30 min routine fy Intake Note: Routine follow up Window Shade Cloth Sewer Required: No Allergies No Known Allergies Allergy (Verified 04/07/25 10:59) Medication List - Last Reconciled 04/07/25 by Carrie Jordan, [facility]- amitriptyline 10 mg PO amoxicillin 2,000 mg PO aspirin (Adult Low Dose Aspirin) 81 mg PO DAILY atorvastatin 10 mg PO DAILY blood sugar diagnostic (FreeStyle Lite Strips) ONCE PER DAY buspirone 20 mg PO BID cholecalciferol (vitamin D3) 50 mcg PO DAILY famotidine 40 mg PO DAILY fluoxetine 20 mg PO fluticasone propionate 50 mcg/actuation 1 spray intranasal DAILY furosemide 40 mg PO DAILY omeprazole 40 mg PO DAILY potassium chloride ER mEq PO DAILY topiramate 50 mg PO DAILY trazodone 100 mg PO TID Tobacco use date assessed: 04/07/25 Fall risk assessment: No Falls in past year Last assessed Fall Risk: 04/07/25 Dental Screening Dental Screen Date: 04/07/25 Did you have a dental visit in the last 12 months?: Yes Did you have a dental problem in the last 6 months where you did not have access to dental care?: No Was dental information given to patient?: Patient has dentist HPI HPI Comments History of Present Illness Details 79 y/o F with GERD, CHF with seconday hyperaldosteronism, ELANA, macular degeneration, rheumatic fever, MDD, history of suicide attempt w/ tranquilizer drug overdose 2012,benzo use disorder, DM 2, Iron def anemia, HOONAH, mitral valve disease, urinary incont, Vit D def, subarachnoid hemorrhage (bifrontal, biparietal,L occipital, R leah fissure and quadigeminal cistern 03/2024 s/p fall), subdural hematoma R tentorium, low density white matter changes, CAD (mild vasc calcification of aorta CT chest 03/2024), mid to distal esophageal wall thickening, R rib fractures 2023, lung nodules, osteoporosis, urinary incont SurgHx: s/p TAVR 2022, s/p gastric bypass FHx: Y son, oren 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 Colon: Kennan 2016 reports no polyps repeat in 10 years declined future screening Mammo: 11/2024 wnl DEXA : 11/2024 Osteoporosis PAP aged out Vaccines: Shingles, pneumococcal, RSV, Flu UTD, Tdap 2015 [place] of Care: Optho cards Dr Scott chatman counselor and med prescriber Marketing Sales Supervisor Endo next appt 06/2025 Uro next appt 04/09/25 History of Present Illness The patient is a 79-year-old female presenting with routine complex disease management visit. Osteoporosis: - Endocrinology consulted; on calcium and vitamin D. Follow-up in June. -Unable to collect 24-hour urine; advised to contact endo to let them know Coronary Artery Disease: - On atorvastatin and aspirin. Managed by Dr. Chavez. Vitamin D Deficiency: - Supplementation ongoing; discussed with endocrinology. Chronic Heart Failure and Secondary Hyperaldosteronism: - Managed with furosemide Depression and Anxiety: - Managed with buspirone, fluoxetine, and trazodone; patient recently shaky. Type 2 Diabetes Mellitus (history): - Managed through diet, A1C at 4.8. Urinary Incontinence: - urodynamic testing is pending; urology consult pending. Lung Nodules: - Benign findings, currently asymptomatic. Allergies: - Reports difficulty breathing, cough, increased phlegm. - using otc zyrtec and flonase - Flu shot today Review of Systems - Cardiovascular: Reports low fasting heart rate into the 50s. Reports seeing asbestos brake lining finisher. - Endocrine: Reports seeing field hockey and lacrosse coach. Vitamin D deficiency, osteoporosis. - Respiratory: Reports lung nodules; recent allergies causing breathing difficulty, cough, phlegm. - Gastrointestinal: Reports history of Type 2 Diabetes Mellitus, managed with diet. - Musculoskeletal: Reports osteoporosis. - Psychiatric: Reports depression and anxiety with current medications. - Genitourinary: Reports urinary incontinence affecting testing. - General: Reports feeling shaky, admitted chronic worry about general health issues. Results: EKG 10/15/23 NSR with PAC Echo 08/24/22 LV mild dilation, EF 50%, severe L atrium dilation, bioprosthetic valve in aortic position, trace perivalvular leak, severe mitral annular calcification, MV severely thickened and calcified, severe MVR labs 09/23/2024 normal electrolytes and renal function hemoglobin A1c 5.3%, normal CBC normal LFTs mild elevation in alk-phos 121, normal lipid profile B12, low vitamin-D 22, normal folate and TSH urine microalbumin Physical Exam General: Well developed, well nourished, in no acute distress. Appears stated age. Head: Normocephalic, atraumatic. Eyes: Pupils are equal, round and reactive to light and accommodation. Conjunctivae are clear. Lungs: Clear to auscultation bilaterally. No rales, rhonchi or wheeze noted. Good air flow in all beatty. Heart: Regular rate and rhythm. No click, rubs or gallops are noted. 3/6 murmur. Pulses: Peripheral pulses are equal and palpable bilaterally. Extremities: No clubbing, cyanosis nor edema is noted. Neurologic: Gait and station normal. Cranial Nerves 2-12 intact. Motor strength grossly symmetrical and intact. No sensory loss. Psych: Normal eye contact, affect and mood appropriate, and normal interactions. Patient is alert and appropriate to context. Discussion Notes I discussed with the patient the management of her multiple chronic conditions. We reviewed the importance of adhering to her current medication regimen, including atorvastatin, aspirin, calcium, vitamin D, furosemide, buspirone, fluoxetine, and trazodone. We spoke about the logistical issue surrounding a 24-hour urine collection for her field hockey and lacrosse coach and agreed to contact the doctor for alternative options. I emphasized the need for continued monitoring by her asbestos brake lining finisher and her upcoming appointments. The patient expressed understanding of her current health status and agreed to adjust her schedule to accommodate logistics for her healthcare appointments. Flu shot administration was agreed upon during this visit. Patient was given time to ask questions. All questions were answered to their satisfaction. Assessment and Plan 1. Osteoporosis - Continue calcium, vitamin D. Director Of Food And Nutrition Services follow-up in June. 2. Coronary Artery Disease - Maintain atorvastatin, aspirin. Follow up cardiology with Dr. Chavez. 3. Vitamin D Deficiency - Continue supplementation; resolve urine collection issue with field hockey and lacrosse coach. 4. Chronic Heart Failure - Maintain furosemide 5. Depression and Anxiety - Continue regimen; recommended ongoing communication with care providers. 6. Type 2 Diabetes Mellitus - Diet management successful, A1C at 4.8. 7. Urinary Incontinence -fu with Uro 8. Lung Nodules - Stable; no immediate action. 9. Allergies - Continue allergy medications. Patient Instructions - Keep taking prescribed medications. - Get a flu shot today. - Follow up with Dr. Chavez as scheduled for heart care. - Talk to the field hockey and lacrosse coach about the urine collection issue. - Monitor any new or changing symptoms, especially with breathing. - Schedule and attend all upcoming appointments. - Stay active and maintain a healthy diet. - RTO as scheduled in October for AWV sooner as needed. Consent Patient was informed and verbally consented to the use of an ambient scribe for clinic note documentation during this visit. Total time spent caring for the patient today was 40 minutes. This includes time spent before the visit reviewing the chart, time spent during the visit, and time spent after the visit on documentation, reviewing laboratory results, diagnostic imaging, medications, performing a medically necessary evaluation, counseling on diagnoses, care coordination, ordering appropriate tests, ordering appropriate medications, review of tests performed by other providers, reporting test results with the patient, communication with other healthcare providers. [facility] Medical History History of rib fracture (~2023) History of mammogram Anxiety and depression Imbalance GERD (gastroesophageal reflux disease) IBS (irritable bowel syndrome) Arthritis Diabetes Heart valve problem Heart disease Sinusitis History of transcatheter aortic valve implantation (CAMI) Surgical History History of colonoscopy (~2016) Hx of cholecystectomy H/O gastric bypass Family History Mother Asthma HTN (hypertension) Mental health disorder Sister Asthma HTN (hypertension) Mental health disorder Father HTN (hypertension) Social History Household Members: None Both parents involved: No Caregiver staying overnight: No Housing: House Are you a primary client care consultant to a significant other at home: No Do you presently have visiting nurse or other home services: No 75 years or older and lives alone: No Alcohol intake: never Patient Tobacco Use Status: Never used Tobacco e-Cigarette/Vaping Use: Never Used Second Hand Smoke Exposure: Yes service: No Current occupational status: retired Cognitive needs: No Hearing needs: Yes (hearing aid) Vision needs: Yes (wear glasses) Questionnaire PHQ-9 Over the last 2 weeks, how often have you been bothered by any of the following problems? 1. Little interest or pleasure in doing things: not at all 2. Feeling down, depressed, or hopeless: not at all 3. Trouble falling or staying asleep, or sleeping too much: not at all 4. Feeling tired or having little energy: not at all 5. Poor appetite or overeating: not at all 6. Feeling bad about yourself - or that you are a failure or have let yourself or your family down: not at all 7. Trouble concentrating on things, such as reading the newspaper or watching television: not at all 8. Moving or speaking so slowly that other people could have noticed. Or the opposite - being so fidgety or restless that you have been moving around a lot more than usual: not at all 9. Thoughts that you would be better off or of hurting yourself in some way: not at all Total score: 0 Depression Screening Interpretation: Negative Depression Screening Done: Yes 03107 - PHQ-9 Billing: Yes Source: Developed by Drs. Janes Nation, Debi Alcaraz, Regis Samuels and colleagues, with an educational darrell from [employer]. Thrive Questionnaire Date Thrive assessed: 04/07/25 I am a: Patient What is your living situation today?: I have a steady place to live Within the past 12 months, did the food you bought not last and you didn't have the money to get more?: Never true Within the past 12 months, did you worry whether your food would run out before you got money to buy more?: Never true Do you have trouble paying for medicines?: No Do you have trouble getting transportation to medical appointments?: No Do you have trouble paying your heating and electricity bill?: No Do you have trouble taking care of your child, family member or friend?: No Do you have trouble with day-to-day activities such as bathing, preparing meals, shopping, managing finances, etc.?: No Are you currently unemployed and looking for a job?: No Are you interested in more education?: Yes Currently or been in a relationship where the following occur: No concerns reported THRIVE Score: 0 ELANA-7 AMB Questionnaire ELANA-7 Date ELANA - 7 assessed: 04/07/25 Feeling nervous, anxious, or on edge: 0 = Not at all Not being able to stop or control worryin = Not at all Worrying too much about different things: 0 = Not at all Trouble relaxin = Not at all Being so restless that it is hard to sit still: 0 = Not at all Becoming easily annoyed or irritable: 0 = Not at all Feeling afraid as if something awful might happen: 0 = Not at all Total ELANA-7 score (0-4 normal; 5-9 mild; 10-14 moderate; 15-21 severe): 0 Source: Developed by Drs. Janes Nation, Debi Alcaraz, Regis Samuels and colleagues, with an educational darrell from [employer]. ELANA-7 Assessment Billing ELANA-7 Assessment Tool: ELANA-7 Assessment 43582 Physical exam (Primary Care) Vital Signs: Last Vital Signs Temp 98.2 F 04/07/25 10:34 Pulse 72 04/07/25 10:34 Resp 12 04/07/25 10:34 BP 112/67 04/07/25 10:34 Pulse Ox 99 04/07/25 10:34 Oxygen Delivery Method Room Air 04/07/25 10:34 BMI result Body Mass Index 25.4 Tobacco/Smoking Status: Tobacco use Status Tobacco use date assessed 04/07/25 04/07/25 10:31 Patient Tobacco Use Status Never used Tobacco 04/07/25 10:27 e-Cigarette/Vaping Use Never Used 04/07/25 10:27 PHQ-9: PHQ-9 Score PHQ-9: Total score 0 04/07/25 11:01 Depression Screening Interpretation: Negative Thrive Assessment: Date of Thrive Assessment Date Thrive assessed 04/07/25 04/07/25 10:31 Currently or been in a relationship where the following occur: No concerns reported Office Procedures Flu Questionnaire Does the patient have a severe egg allergy?: No Does the patient have severe life threatening allergies?: No Has the patient ever had Guillain-Olivet Syndrome?: No Has the patient ever had any past reaction to a flu shot?: No Results AMB Hemoglobin A1c AMB Hemoglobin A1c 4.8 % Last Edit by Ar Anne MA on 04/07/25 10:44 Immunizations Fluarix 0620-4577 (PF) 45 mcg (15 mcg x 3)/0.5 mL IM syringe Performing Provider: CHERYL Ramos Performing Location: [facility] Administered by: Ar Anne MA on 04/07/25 11:22 Dose Route Admin Location Dispensed Lot Number Expiration Date NDC Roller Skates Assembler 0.5 mL IM Right Deltoid 0.5 mL [id number] 01/11/26 11610-449-12 [employer] VIS Given Date VIS Provided VIS Publication Date 04/07/25 Single Vaccine 24 Eligibility Eligibility Date Funding Source Not [facility] Eligible 04/07/25 Private Results Reviewed Results Reviewed: Laboratory Last Values Hgb A1c (Clinic) 4.8 % (4.0-6.0) 04/07/25 10:38 Coding Level of Care Code Est Pt Level 5 (49038) Complex EM visit Add On G2211 Diagnoses Mixed stress and urge urinary incontinence N39.46 Urinary Incontinence type: mixed stress and urge incontinence Age-related osteoporosis without current pathological fracture M81.0 Osteoporosis type: age-related Presence of current pathological fracture: without current pathological fracture Influenza vaccination administered at current visit Z23 ELANA (generalized anxiety disorder) F41.1 Moderate episode of recurrent major depressive disorder F33.1 Major depression recurrence: recurrent Active/Remission status: currently active Major depression episode severity: moderate Chronic combined systolic and diastolic congestive heart failure I50.42 Heart failure type: combined systolic and diastolic Heart failure chronicity: chronic Coronary artery disease involving douglas coronary artery of douglas heart without angina pectoris I25.10 Coronary Disease-Associated Artery/Lesion type: douglas artery [place] vs. transplanted heart: douglas heart Associated angina: without angina Type 2 diabetes mellitus with hypoglycemia without coma, without long-term current use of insulin E11.649 Diabetes mellitus petroleum terminal plant operator insulin use: without petroleum terminal plant operator use Diabetes mellitus complication status: with hypoglycemia Diabetes mellitus complication detail: without coma 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 Vitamin D deficiency E55.9 Lung nodules R91.8 Additional Codes ELANA-7 Assessment Billing - ELANA-7 Assessment Tool: ELANA-7 Assessment 49688 ([id number]) PHQ-9 - 14037 - PHQ-9 Billing: Yes ([id number]) Assessment & Plan Assessment & Plan (1) Urinary incontinence: Comment: refer to Uro Code(s): R32 - Unspecified urinary incontinence Category: Medical Qualifiers: Urinary Incontinence type: mixed stress and urge incontinence Qualified Code(s): N39.46 - Mixed incontinence (2) Osteoporosis: Onset Date: ~11/2024 Comment: refer [facility] for eval & tx Code(s): M81.0 - Age-related osteoporosis without current pathological fracture Category: Medical Qualifiers: Osteoporosis type: age-related Presence of current pathological fracture: without current pathological fracture Qualified Code(s): M81.0 - Age-related osteoporosis without current pathological fracture (3) Influenza vaccination administered at current visit: Onset Date: ~04/07/25 Code(s): Z23 - Encounter for immunization Category: Medical (4) ELANA (generalized anxiety disorder): Code(s): F41.1 - Generalized anxiety disorder Category: Medical (5) MDD (major depressive disorder): Code(s): F32.9 - Major depressive disorder, single episode, unspecified Category: Medical Qualifiers: Major depression recurrence: recurrent Active/Remission status: currently active Major depression episode severity: moderate Qualified Code(s): F33.1 - Major depressive disorder, recurrent, moderate (6) CHF (congestive heart failure): Comment: ef 50% echo 2022 with secondary hyperaldosteronism on lasix Code(s): I50.9 - Heart failure, unspecified Category: Medical Qualifiers: Heart failure type: combined systolic and diastolic Heart failure chronicity: chronic Qualified Code(s): I50.42 - Chronic combined systolic (congestive) and diastolic (congestive) heart failure (7) CAD (coronary artery disease): Comment: CAD (mild vasc calcification of aorta CT chest 03/2024), Code(s): I25.10 - Atherosclerotic heart disease of douglas coronary artery without angina pectoris Category: Medical Qualifiers: Coronary Disease-Associated Artery/Lesion type: douglas artery [place] vs. transplanted heart: douglas heart Associated angina: without angina Qualified Code(s): I25.10 - Atherosclerotic heart disease of douglas coronary artery without angina pectoris (8) DM2 (diabetes mellitus, type 2): Code(s): E11.9 - Type 2 diabetes mellitus without complications Category: Medical Qualifiers: Diabetes mellitus petroleum terminal plant operator insulin use: without jail use Diabetes mellitus complication status: with hypoglycemia Diabetes mellitus complication detail: without coma Qualified Code(s): E11.649 - Type 2 diabetes mellitus with hypoglycemia without coma (9) Secondary hyperaldosteronism: Comment: d/t CHF on lasix Code(s): E26.1 - Secondary hyperaldosteronism Category: Medical (10) Vitamin D deficiency: Code(s): E55.9 - Vitamin D deficiency, unspecified Category: Medical (11) Lung nodules: Comment: (mild vasc calcification of aorta CT chest 03/2024)lung nodules no need for f/u Code(s): R91.8 - Other nonspecific abnormal finding of lung field Category: Medical Plan . Orders: Orders AMB Hemoglobin A1c Today Z13.9 - Encounter for screening, unspecified Influenza [id number] Immunization Today Z23 - Encounter for immunization Medications: New calcium carbonate (Calcium 600) 1,200 mg PO DAILY
[2025-04-07 10:34] VITALS: BP 112/67; PULSE 72; RESP 12; TEMP 36.8; O2SAT 99; BMI 25.4
--- OUTSIDE RECORDS SUMMARY | 2025-04-07 12:58 | XMS_ITS | Clinical Summary ---
Author Organization [employer] Address [address] [place] [address] Care Team Providers Care Heavy Duty Mechanic Name Role Phone Unavailable Primary Care [...] Description 05/11/2025 12:00 PM EDT Office Visit [facility] [address] [place] [address] Josefina Salguero Health Maintenance Due Date Last Done Comments Depression Screening 1945 Lipid Panel 1945 SDOH Screening 1945 Alcohol/Substance Use Screening 1958 Hepatitis C Screening 1964 Tobacco Screening 12/19/2024 12/20/2023 COVID-19 Vaccine ( season) 2025 06/05/2024, 04/23/2023, 04/19/2023, Additional history exists Influenza [...] Diagnosis Comments Full PROPHYLAXIS - ADULT Routine 025 11:00 [...]
--- OUTSIDE RECORDS SUMMARY | 2025-04-07 12:58 | XMS_ITS | Encounter Summary ---
Author Organization [employer] [facility] Address [address] [place] [id number] Care Team Providers Care Consolidation Accountant Name Role Phone Unavailable Primary Care Provider [...] Description 05/11/2025 12:00 PM EDT Office Visit [place] [facility] [address] [place] [address] Josefina Salguero documented as of this encounter Visit Diagnoses Not on filedocumented in this encounter
--- OUTSIDE RECORDS SUMMARY | 2025-04-07 12:58 | XMS_ITS | Encounter Summary ---
Author Organization [employer] [facility] Address [address] [facility] [address] [place] [address] Care Team Providers Care Estate Manager Name Role Phone Unavailable Primary Care [...] Description 05/11/2025 12:00 PM EDT Office Visit [place] [address] [place] [address] Josefina Salguero documented as of this encounter Visit Diagnoses Not on filedocumented in this encounter
--- OUTSIDE RECORDS SUMMARY | 2025-04-07 12:58 | XMS_ITS | Encounter Summary ---
Author Organization [employer] Address [address] [facility] [address] [address] [place] [address] Care Team Providers Care Wheel Press Operator Name Role Phone Unavailable Primary Care Provider Unavailabl e Encounter Details Date Type Department Care Team (Late st Contact Info) Description 09/25/2024 Patient Outreach [facility] [address] [place] [address] Melissa Carrero Social History Tobacco Use Types [...] 05/11/2025 12:00 PM EDT Office Visit [facility] [address] [place] [address] Josefina Salguero documented as of this encounter Visit Diagnoses Not on filedocumented in this encounter
--- OUTSIDE RECORDS SUMMARY | 2025-04-07 12:58 | XMS_ITS | Clinical Summary ---
Author Organization [facility] Address [address] [place] [address] Phone Care Team Providers Care Soaking Room Operator Name Role Phone JoseDexMejia, Carrie CONN Primary Care Provider Allergies Active [...] replacement ) 08/28/2022 Overview (05/26/2024): Done at [facility] on 08/23/22 with KM - Indications: Assessment [...] office and the TAVR coordinators at the [facility] structural heart disease program. After all the [...] sleep apnea. Iron deficiency 06/17/2016 Morbid obesity ([facility] V24, [facility] V28) 2014 Assessment & Plan (11/09/2024 12:22 PM EDT): The patient continues to struggle with weight gain. She self soothes with excessive eating. She carries a tremendous amount of anxiety in her daily life. Orders: ECG 12 lead Suicide attempt by other tra nquilizer drug overdose ([facility] V24, [facility] V28) 01/27/2013 Overview (05/26/2024): Overdosed on clonazepam [...] Type 2 diabetes mellitus wit h cataract ([facility] V24, [facility] V28) 01/23/2012 Overview (05/26/2024): Last Assessment & [...] Date Site/Laterality Comments GASTRIC BYPASS 1998 PROCEDURE: UT GASTRIC RSTCV W/BYP W/SM INT RCNSTJ LIMIT ABSRPJ HERNIA REPAIR PROCEDURE: HISTORICAL HERNIA REPAIR/UMB CYST REMOVAL PROCEDURE: UT EXCISION PILONIDAL CYST/SINUS SIMPLE CHOLECYSTECTOMY 03/14/10 PROCEDURE: HISTORICAL CHOLECYSTECTOMY COLONOSCOPY 06/25/16 PROCEDURE: UT COLONOSCOPY FLX DX W/COLLJ SPEC WHEN PFRMD; COMMENT: normal UPPER GASTROINTESTINAL ENDOSCOPY 06/25/16 PROCEDURE: UPPER GI ENDOSCOPY/EXAM; COMMENT: normal post op gastric bypass appearance CHOLECYSTECTOMY PROCEDURE: UT LAPAROSCOPY SURG CHOLECYSTECTOMY COLONOSCOPY PROCEDURE: HISTORICAL COLONOSCOPY [...] Description 05/28/2025 10:40 AM EST Office Visit [facility] [address] [place] [phone] Frankie Dominguez NP [address] [place] [address] [address] [place] [phone] Health Maintenance Due Date Last Done Comments [...] Depression Screening 07/15/2024 COVID-19 Vaccine ( season) 2025 06/05/2024, 04/23/2023, [...] * Annual BMP Blood Test (05/04/2024) Pathologist [facility] Annual BMP Blood Test abstracted Result [facility] Provider HEALTH MAINTENANCE Final Result * Lipid panel (05/04/2024) [facility] LDL/HDL Ratio 2 0 - 4 Triglycerides 54 0 - 150 mg/dL Cholesterol 161 0 - 200 mg/dL HDL 98 >=40 mg/dL LDL Cholesterol 53 0 - 100 mg/dL Blood Venous blood specimen / Unknown Result [facility] Provider LAB BLOOD ORDERABLES Neha l Result * Hemoglobin A1c (10/14/2023) [facility] Hemoglobin A1C 5.2 <=6.5 % Blood Venous blood specimen / Unknown Result [facility] Provider LAB BLOOD ORDERABLES Neha l Result * Urine Albumin Creatinine Ratio (11/20/2021) Pathologist [facility] Urine Albumin Creatinine Ratio abstracted Result [facility] Provider HEALTH MAINTENANCE Final Result * Hepatitis C Screening (02/15/2010) [facility] Hepatitis C Screening abstracted [facility] Provider HEALTH MAINTENANCE Final Result from Last 3 Months or Most Recently Relevant to Health Maintenance Insurance [employer] Care Teams Soaking Room Operator Relationship Specialty Start Date End Date Carrie Jordan FNP [address] [place] [phone] PCP - General Nurse Practitioner 11/02/24
--- OUTSIDE RECORDS SUMMARY | 2025-04-07 12:58 | XMS_ITS | Encounter Summary ---
Author Organization [employer] [facility] Address [address] [facility] [address] [place] [id number] Care Team Providers Care Director Of Search Engine Marketing Name Role Phone Unavailable Primary Care Provider [...] Description 05/11/2025 12:00 PM EDT Office Visit [place] [facility] [address] [place] [address] Josefina Salguero documented as of this encounter Visit Diagnoses Not on filedocumented in this encounter
--- OUTSIDE RECORDS SUMMARY | 2025-04-07 12:58 | XMS_ITS | Encounter Summary ---
Author Organization [employer] [facility] Address [address] [facility] [address] [place] [id number] Care Team Providers Care Trawl Net Maker Name Role Phone Unavailable Primary Care Provider [...] Description 05/11/2025 12:00 PM EDT Office Visit [place] [facility] [address] [place] [address] Josefina Salguero documented as of this encounter Visit Diagnoses Not on filedocumented in this encounter
== END 2025-04-07 11:23 | disposition home or self-care (01) ==
LOC: HO.HMCFM 10:26
PROVIDERS: PCP Nurse Practitioner Family; Visit Provider Nurse Practitioner Family
DX: E11.649 Type 2 diabetes mellitus with hypoglycemia without coma (principal); I50.42 Chronic combined systolic (congestive) and diastolic (congestive) heart failure; F33.1 Major depressive disorder, recurrent, moderate; N39.46 Mixed incontinence; M81.0 Age-related osteoporosis without current pathological fracture; Z23 Encounter for immunization; F41.1 Generalized anxiety disorder; I25.10 Atherosclerotic heart disease of native coronary artery without angina pectoris; E26.1 Secondary hyperaldosteronism; E55.9 Vitamin D deficiency, unspecified; R91.8 Other nonspecific abnormal finding of lung field

== ENCOUNTER → 2025-04-07 10:25 | Outpatient (BNVA) | payer MEDICARE, SELFPAY | PROVIDERS: PCP Nurse Practitioner Family; Visit Provider Nurse Practitioner Family | DX: M81.0 Age-related osteoporosis without current pathological fracture (principal); I25.10 Atherosclerotic heart disease of native coronary artery without angina pectoris; E55.9 Vitamin D deficiency, unspecified; E26.9 Hyperaldosteronism, unspecified; F41.9 Anxiety disorder, unspecified; R91.8 Other nonspecific abnormal finding of lung field; N39.46 Mixed incontinence; F41.1 Generalized anxiety disorder; I50.42 Chronic combined systolic (congestive) and diastolic (congestive) heart failure; F33.1 Major depressive disorder, recurrent, moderate; E11.649 Type 2 diabetes mellitus with hypoglycemia without coma; E26.1 Secondary hyperaldosteronism; Z23 Encounter for immunization; Z91.09 Other allergy status, other than to drugs and biological substances | CPT/HCPCS: 83036; 90471; 90656; 96127; 99212 ==